=== PATIENT | male | born 1955 | race Two or more races ===

== ENCOUNTER 2024-07-07 08:37 | Outpatient (OUT) | payer MEDICARE, SELFPAY ==
[2024-07-07 08:58] LABS: Basophils Absolute Auto 0.1 10^3/uL (0.0-0.1); Basophils Percent Auto 0.8 % (0.2-2.0); Eosinophils Absolute Auto 0.4 10^3/uL (0.0-0.7); Eosinophils Percent Auto 4.9 % (0.9-7.0); Hematocrit 47.9 % (42.0-54.0); Hemoglobin 16.1 g/dL (14.0-18.0); Immature Granulocytes Abs Auto 0.01 10^3/uL (0.00-0.03); Immature Granulocytes Pct Auto 0.1 % (0.0-0.5); Lymphocytes Absolute Auto 2.2 10^3/uL (1.2-3.8); Lymphocytes Percent Auto 29.9 % (20.5-60.0); Mean Corpuscular HGB Conc 33.6 g/dL (29.9-35.2); Mean Corpuscular Hemoglobin 27.9 pg (25.9-34.0); Monocytes Absolute Auto 0.5 10^3/uL (0.3-0.8); Neutrophils Absolute Auto 4.2 10^3/uL (1.4-6.5); Neutrophils Percent Auto 57.3 % (43.0-75.0); Platelet Count 218 10^3/uL (150-450); Red Blood Count 5.77 10^6/uL (4.70-6.10); Red Cell Distribution Width 14.1 % (11.0-15.0); White Blood Count 7.3 10^3/uL (4.0-11.0)
[2024-07-07 09:36] LABS: Alanine Aminotransferase 48 U/L (16-63); Albumin Level 3.7 g/dL (3.4-5.0); Alkaline Phosphatase 102 U/L (46-116); Anion Gap 14.6; Aspartate Amino Transferase 30 U/L (15-37); Bilirubin Total 0.8 mg/dL (0.2-1.0); Carbon Dioxide 26.2 mmol/L (21.0-32.0); Chloride 105 mmol/L (98-107); Estimated GFR (African America >60 (>=60 mL/min/1.73m^2); Estimated GFR (Non-African Ame >60 (>=60 mL/min/1.73m^2); Globulin 3.7 g/dL; Glucose 126 mg/dL (74-106); Potassium 3.8 mmol/L (3.5-5.1); Sodium 142 mmol/L (136-145); Total Protein 7.4 g/dL (6.4-8.2)
[2024-07-08 08:15] LABS: Estradiol <5.0 pg/mL (7.6-42.6)
[2024-07-08 12:12] LABS: Sex Horm Binding Glob, Serum 30.5 nmol/L (19.3-76.4)
== END 2024-07-07 08:38 | disposition home or self-care (01) ==
LOC: LAB 08:42
PROVIDERS: PCP Family Medicine
DX: N52.9 Male erectile dysfunction, unspecified (principal); N40.1 Benign prostatic hyperplasia with lower urinary tract symptoms; R39.11 Hesitancy of micturition; N39.0 Urinary tract infection, site not specified; E29.1 Testicular hypofunction; Z12.5 Encounter for screening for malignant neoplasm of prostate
CPT/HCPCS: 36415; 80053; 82670; 84270; 84402; 84403; 85025

== ENCOUNTER 2024-10-16 08:22 | Outpatient (OUT) | payer MEDICARE, SELFPAY ==
--- OUTSIDE RECORDS SUMMARY | 2024-10-16 08:34 | XMS_ITS | CCD ---
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 for Visit and Comments: Hypogonadism [185] - 4 wk follow-up with labs Normal [facility] ESTRADIOLon 03-25-2024 ESTRADIOL (PG/ML) IN SER/PLAS 31.0 pg/mL Normal 27-52 [facility] Comment on above: Result Comment: FEMALES: Normally menstruating Luteal phase 60-232 Follicular phase 31-90 Midcycle phase 60-533 Postmenopausal (untreated) <138 Fulvestrant treatment will show an increased estradiol concentration with this methodology. Alternate methodologies are available upon request. Test Performed by [facility] [address] [place] [address] [id number] - Released 03/25/2024 15:10 Performed By: #### L [id number] ####[employer] [id number] [place] [address] LUTEINIZING HORMONEon 2023 LUTROPIN (MIU/ML) IN SER/PLAS 2.8 mIU/mL Normal 2-12 [facility] Comment on above: Result Comment: LH N ormal Ranges for females Normally menstruating females: Follicular phase 1-18 mIU/ml Mid-Cycle peak 24-105 mIU/ml Luteal phase 0.5-20 mIU/ml Postmenopausal females 15-62 mIU/ml LH Normal Ranges for Males 2-12 mIU/ml Performed By: #### L [id number] ####[facility] (BEAKER)[address] [place] [address] Labon 03-25-2024 Lab [id number] Mahesh Gonzalez 1955 M Date Provider Department Center 03/25/2024 2245-[facility] OPD LAB RESOURCE [facility] OPD SD Medical C No family history on file Normal [facility] Office Visiton 03-25-2024 Follow-up visit [id number] Mahesh Gonzalez 1955 M Date Provider Department Center 03/25/2024 [address] [facility] URO Second Fl No family history on file Level of Service:41270 SC OFFICE/OUTPATIENT NEW MODERATE MDM 45 MINUTES Reason for Visit and Comments: Benign Prostatic Hypertrophy [[id number]] Erectile Dysfunction [096050] Normal [facility] PROLACTINon 03-25-2024 PROLACTIN (NG/ML) IN SER/PLAS 4.46 ng/mL Normal 1.61-18.77 [facility] Comment on above: Performed By: #### L [id number] #### [facility] (BEAKER) [address] [place] [address] PSA, SCREENINGon 03-25-2024 PROSTATE SPECIFIC AG (NG/ML) IN SER/PLAS 0.2 ng/mL Low 0.4-4 [facility] Comment on above: Performed By: #### L [id number] #### [facility] ([facility]) [address] [place] [address] TESTOSTERONE, FREE AND TOTAL , AND SHBGon 03-25-2024 SEX HORMONE BINDING GLOBULIN (NMOL/L) IN SER/PLAS 28 nmol/L Normal 19-76 [facility] Comment on above: Performed By: #### L [id number] ####[facility] [employer] [id number] [place] [address] TESTOSTERONE (NG/DL) IN SER/PLAS 269 ng/dL Normal 193-740 [facility] Comment on above: Performed By: #### L [id number] ####[facility] [employer] [id number] [place] [address] TESTOSTERONE FREE (NG/ML) IN SER/PLAS 57.5 pg/mL Normal 47.0-244.0 [facility] Comment on above: Result Comment: The concentration of free testosterone is derived from a mathematical expression based on the constant for the binding of testosterone to albumin and/or sex hormone binding globulin. Test Performed by [facility] [address] [place] [id number] - Released 03/25/2024 15:19 Performed By: #### L [id number] ####[employer] [id number] [place] [address] TSHon 03-25-2024 THYROTROPIN (MIU/L) IN SER/PLAS BY DETECTION LIMIT <= 0.05 MIU/L 2.30 mIU/L Normal 0.34-5.60 [facility] Comment on above: Performed By: #### L [id number] #### [facility] ([facility]) [address] [place] [address] Complete Blood Count with Au to Diffon 09-06-2021 Basophils (Bld) [#/Vol] 0.05 10*3/uL Normal 0.00-0.20 [facility] Special[facility] Comment on above: Performed By: #### C PABLO KIDDD, CBCAD #### [facility] [address] [place], [place] [id number] Basophils/100 WBC (Bld) 0.8 % Normal [facility] Comment on above: Performed By: #### C MP LIPD, CBCAD #### [facility] [address] [place], [place] [id number] Eosinophils (Bld) [#/Vol] 0.30 10*3/uL Normal 0.02-0.50 [facility] Comment on above: Performed By: #### C DEBBIE KIDD, CBCAD #### [facility] [address] [place], [place] [id number] Eosinophils/100 WBC (Bld) 4.7 % Normal [facility] Comment on above: Performed By: #### C DEBBIE KIDD, CBCAD #### [facility] [address] [place], [place] [id number] Erythrocyte distribution width (RBC) [Ratio] 13.2 % Normal 11.0-15.0 [facility] Comment on above: Performed By: #### C DEBBIE KIDD, CBCAD #### [facility] [address] [place], [place] [id number] Hematocrit (Bld) [Volume fraction] 46.7 % Normal 38.5-50.0 [facility] Comment on above: Performed By: #### C PABLO KIDDD, CBCAD #### [facility] [address] [place], [place] [id number] Hemoglobin (Bld) [Mass/Vol] 15.7 g/dL Normal 13.0-17.1 [facility]erson[facility] Comment on above: Performed By: #### C BERNABE LIPD, CBCAD #### [facility] [address] [place], [place] [id number] Lymphocytes (Bld) [#/Vol] 1.6 10*3/uL Normal 0.9-3.9 [facility] Impersonator Comment on above: Performed By: #### C BERNABE LIPD, CBCAD #### [facility] [address] [facility] [place] [id number] Lymphocytes/100 WBC (Bld) 25.7 % Normal [facility] Comment on above: Performed By: #### C MP, LIPD, CBCAD #### [facility] [address] [facility] [place] [id number] MCH (RBC) [Entitic mass] 27.7 pg Normal 27.0-33.0 [facility] Comment on above: Performed By: #### C MP, LIPD, CBCAD #### [facility] [address] [place], [place] [id number] MCHC (RBC) [Mass/Vol] 33.6 g/dL Normal 32.0-36.0 [facility] Comment on above: Performed By: #### C MP, LIPD, CBCAD #### [facility] [address] [place], [place] [id number] MCV (RBC) [Entitic vol] 82 fL Normal 80-100 [facility] Comment on above: Performed By: #### C MP, LIPD, CBCAD #### [facility] [address] [facility] [place] [id number] Monocytes (Bld) [#/Vol] 0.4 10*3/uL Normal 0.2-0.9 [facility] Comment on above: Performed By: #### C MP, LIPD, CBCAD #### [facility] [address] [facility] [place] [id number] Monocytes/100 WBC (Bld) 6.8 % Normal [facility] Comment on above: Performed By: #### C MP, LIPD, CBCAD #### [facility] [address] [facility] [place] [id number] Neutrophils (Bld) [#/Vol] 3.9 10*3/uL Normal 1.5-7.8 [facility] Comment on above: Performed By: #### C MP, LIPD, CBCAD #### [facility] [address] [facility] [place] [id number] Neutrophils/100 WBC (Bld) 61.7 % Normal [facility] Comment on above: Performed By: #### C MP, LIPD, CBCAD #### [facility] [address] [place], [place] [id number] Platelet mean volume (Bld) [Entitic vol] 8.90 fL Normal 7.50-12.50 [facility] Comment on above: Performed By: #### C MP, LIPD, CBCAD #### [facility] [address] [place], [place] [id number] Platelets (Bld) [#/Vol] 227 10*3/uL Normal 140-400 [facility] Special[facility] Comment on above: Performed By: #### C MP, LIPD, CBCAD #### [facility] [address] [place], [place] [id number] RBC (Bld) [#/Vol] 5.67 10*6/uL Normal 4.20-5.80 [facility] Male Impersonator Comment on above: Performed By: #### C MP, LIPD, CBCAD #### [facility] [address] [place], [place] [id number] RDW-SD 39.6 fL Normal 37.0-50.0 [facility] Special[facility] Comment on above: Performed By: #### C MP, LIPD, CBCAD #### [facility] [address] [place], [place] [id number] WBC (Bld) [#/Vol] 6.4 10*3/uL Normal 3.8-11.0 [facility] Male Impersonator Comment on above: Performed By: #### C MP, LIPD, CBCAD #### [facility] [address] [place], [place] [id number] Comprehensive Metabolic Pane [facility] 09-06-2021 Albumin [Mass/Vol] 4.5 g/dL Normal 3.6-5.1 [facility]erson[facility] Comment on above: Performed By: #### C MP, LIPD, CBCAD #### [facility] [address] [place], [place] [id number] Albumin/Globulin [Mass ratio] 2.0 {ratio} Normal 1.0-2.5 [facility] Imperson[facility] Comment on above: Performed By: #### C MP, LIPD, CBCAD #### [facility] [address] [place] [id number] ALP [Catalytic activity/Vol] 94 U/L Normal 40-129 [facility] Comment on above: Performed By: #### C MP, LIPD, CBCAD #### [facility] [address] [facility] [place] [id number] ALT [Catalytic activity/Vol] 53 U/L High 9-46 [facility] Comment on above: Result Comment: 07/20 Female reference range changed. Performed By: #### C MP, LIPD, CBCAD #### [facility] [address] [facility] [place] [id number] Anion gap [Moles/Vol] 17 mmol/L Normal 12-20 [facility] Comment on above: Result Comment: Effe ctive 08/25/2019 reference range changed. Performed By: #### C MP, LIPD, CBCAD #### [facility] [address] [place], [place] [id number] AST [Catalytic activity/Vol] 58 U/L High 10-40 [facility] Comment on above: Performed By: #### C MP, LIPD, CBCAD #### [facility] [address] [facility] [place] [id number] Bilirubin [Mass/Vol] 0.62 mg/dL Normal 0.30-1.20 [facility] Comment on above: Performed By: #### C MP, LIPD, CBCAD #### [facility] [address] [facility] [place] [id number] BUN/CREA 22 Ratio Normal 6-22 [facility] Comment on above: Performed By: #### C MP, LIPD, CBCAD #### [facility] [address] [facility] [place] [id number] Calcium [Mass/Vol] 9.5 mg/dL Normal 8.6-10.2 [facility] Comment on above: Performed By: #### C MP, LIPD, CBCAD #### [facility] [address] [facility] [place] [id number] Chloride [Moles/Vol] 103 mmol/L Normal 98-107 [facility] Comment on above: Performed By: #### C MP, LIPD, CBCAD #### [facility] [address] [place], [place] [id number] CO2 [Moles/Vol] 24 mmol/L Normal 20-31 [facility] Comment on above: Performed By: #### C BERNABE, LIPD, CBCAD #### [facility] [address] [place], [place] [id number] Creatinine [Mass/Vol] 0.7 mg/dL Normal 0.7-1.4 [facility] Comment on above: Performed By: #### C BERNABE, LIPD, CBCAD #### [facility] [address] [place], [place] [id number] eGFRAA 136 mL/min/1.73m2 Normal >60 [facility] Comment on above: Performed By: #### C BERNABE LIPD, CBCAD #### [facility] [address] [place], [place] [id number] eGFRNAA 112 mL/min/1.73m2 Normal >60 [facility] Comment on above: Performed By: #### C PABLO KIDDD, CBCAD #### [facility] [address] [place], [place] [id number] Globulin (S) [Mass/Vol] 2.3 g/dL Normal 1.9-3.7 [facility] Comment on above: Performed By: #### C PABLO KIDDD, CBCAD #### [facility] [address] [place], [place] [id number] Glucose [Mass/Vol] 219 mg/dL High 65-99 [facility] Comment on above: Result Comment: For FASTING Glucose --- ADA reference ranges: Normal 65-99 mg/dl Prediabetes 100-125 Diabetes >/= 126 Performed By: #### C PABLO KIDDD, CBCAD #### [facility] [address] [place], [place] [id number] Potassium [Moles/Vol] 3.9 mmol/L Normal 3.5-5.5 [facility] Comment on above: Performed By: #### C BERNABE, LIPD, CBCAD #### [facility] [address] [place], [place] [id number] Protein [Mass/Vol] 6.8 g/dL Normal 6.1-8.1 [facility] Male Impersonator Comment on above: Performed By: #### C MP, LIPD, CBCAD #### [facility] [address] [place], [place] [id number] Sodium [Moles/Vol] 140 mmol/L Normal 135-146 [facility] Male Impersonator Comment on above: Performed By: #### C MP, LIPD, CBCAD #### [facility] [address] [place], [place] [id number] Urea nitrogen [Mass/Vol] 16 mg/dL Normal 7-25 [facility] Specialist Comment on above: Performed By: #### C BERNABE, LIPD, CBCAD #### [facility] [address] [place], [place] [id number] Lipid Panelon 09-06-2021 Cholesterol [Mass/Vol] 116 mg/dL Low 125-200 [facility]: Result Comment: Low risk < 200mg/dL Borderline risk 201-239 mg/dl High risk > or equal to 240 Performed By: #### C MP, LIPD, CBCAD #### [facility] [address] [place], [place] [id number] Cholesterol in HDL [Mass/Vol] 33 mg/dL Low >40 [facility] Specialist Comment on above: Result Comment: High Cardiovascular Risk HDL <40 mg/dL Low Cardiovascular Risk HDL > or equal to 60 mg/dl Performed By: #### C MP, LIPD, CBCAD #### [facility] [address] [place], [place] [id number] Cholesterol in LDL [Mass/Vol] 32 mg/dL Normal [facility] Specialist Comment on above: Result Comment: LDL ATP III CLASSIFICATION LDL less than 100 mg/dl Optimal LDL 100-129 mg/dl Near or above optimal LDL 130-159 Borderline high LDL 160-189 High LDL greater than 189 mg/dl Very High Performed By: #### C MP, LIPD, CBCAD #### [facility] [address] [place], [place] [id number] Cholesterol in VLDL [Mass/Vol] 51 mg/dL Normal [facility] Male Impersonator Comment on above: Performed By: #### C MP, LIPD, CBCAD #### [facility] [address] [place], [place] [id number] Cholesterol.total/Chol esterol in HDL [Mass ratio] 4 {ratio} Normal [facility] Comment on above: Performed By: #### C DEBBIE KIDD, CBCAD #### [facility] [address] [place], [place] [id number] Triglyceride [Mass/Vol] 253 mg/dL High 30-150 [facility] Specialist Comment on above: Result Comment: TRIG ATPIII CLASSIFICATIONS TRIG less than 150 mg/dl Normal TRIG 150-199 mg/dl Borderline High TRIG 200-500 mg/dl High TRIG greather than 500 mg/dl Very High Performed By: #### C DEBBIE KIDD, CBCAD #### [facility] [address] [place], [place] [id number] Microalbumin (with Creat)on 09-06-2021 mALB 4.7 mg/dL Normal [facility] Comment on above: Result Comment: mALB reference range not established. Performed By: #### m ALBC #### [facility] [address] [place], [place] [id number] mALB/Creat Ratio 19.0 MCG/MG Normal [facility] Comment on above: Result Comment: The ADA (Diabetes Care 26:S94-S98, 2003) defines abnormalities in Albumin excretion as follows: Category Result (MCG/MG Creatinine) Normal <30 Microalbuminuria 30-299 Clinical Albuminuria > or = 300 Performed By: #### m ALBC #### [facility] [address] [place], [place] [id number] UCREA 248 mg/dL Normal 39-259 [facility] Specialist Comment on above: Performed By: #### m ALBC #### [facility] [address] [place], [place] [id number] Prostatic Specific Antigen, Totalon 09-06-2021 PSA, TOTAL 0.28 ng/mL Normal < OR = 4.00 [facility] Special[facility] Comment on above: Order Comment: [facility] Testing performed at: QPT, [facility], [address], [address] [facility], [place], [address], Explosive Man: Pierre Smith MD [facility] Collection Date/Time: [id number] [facility] Results Received Date/Time: [id number] [facility] Reported Date/Time: [id number] Result Comment: The total PSA value from this assay system is standardized against the WHO standard. The test result will be approximately 20% lower when compared to the equimolar-standardized total PSA (Zandra Hunter). Comparison of serial PSA results should be interpreted with this fact in mind. This test was performed using the Siemens chemiluminescent method. Values obtained from different assay methods cannot be used interchangeably. PSA levels, regardless of value, should not be interpreted as absolute evidence of the presence or absence of disease. Performed By: #### P SA #### [facility] Default [address] [place] [address] Consent Formson 02-11-2021 Consent Forms [id number] #1.00[facility] Provider Orderson 02-10-2021 Provider Orders [id number] #1.00[facility] Provider Orders [id number] #1.00[facility] Coding Summaryon 02-09-2021 Coding Summary HTMLBase 64 FazxrdtpWGv0aAa+PGhl YWQ+MC7VUMBkJ92hwMEe zU9CU1iTPR8KNNZETEEJ VM0ECZ5jvTZ2JTeeB6Fl biAv GvnipSTwSM77YJa2OPN6 tTjoULnruN3feTGwS9l3 SqLcHI85yV05PEunCGIj LpK8VrJgiyinsDQe K2qrLzKjzLVlXpo+PHRh YmxlIHdpZHRoPScxMDAl QbCweDcyUX8oBq3dIQLw LWNvbGxhcHNlOiBj t8leWUFaFAwlNB1aaOkk G4WyhQF7WAYry8t7Qn67 dHI+BQKxCLL2qVgmJAak b972KaOny8plCSL5 sIQdLSleEIX5N25nx7X9 XYCzBVXaPGB1tVY1vW3b zNjhhjbjW9FfcALsXuB5 EDU6lSDiuC1gjJob nslzqF6qTjl+A89QJL4D DFTGPX1TYiy4J3XrPctx dHI+YA31ETEvPO63jAJy zCYym5cdeFc7LdMd BPDeSKG9iQqiFQptb0Fv NRByT03kwHXhx3I1EPQn uBtorJTrStVmbAJ2lR9a VCmysszxv9bigvnx Srzdi6dnbx80wO19Y49z GRwkMTFnWKY4VMLuDHOd bTipdl6nxC1vMx4+IDxj v7myz3mqtPz7JsJf NQCvkwWpdKgjQKK6g8Jr Rw65O3DaxTrev4KiZcz4 vj71tJXsl7E7qGV6FYnv NVVicJ1gQFefVdS7 QEJvJfQmsZ26oFWqLScn Uq5hdOgzqYpxHU6zLJUq mkafHGYwyW8gKCYfqEFf iOmuWB7eJPIppnno f347RbPgZMJ3NCXbjSMn X5DurO0mFgMzWNNoXMDf V5OwwKPeNTguO030XYve EiJ6RXEnymNeT0Cm UHArkUvhAzU2j5R2Cw8P z9FqhlzeGOR2VHyuJIX4 XtHyMnNzUvF7U7UwNvf9 ADUrrAinRT1dO4Os OAIkjufshsowlPM4XNRm TSZbpO29eOJpMZdlZz0z r7C4z663FENiCZOuxW58 Ez6woBofRGKmyKCB sX2hqljnj8flvzbkAnXm GYNpPWc4PDr6EREfcPim JbGfZBY5OsK7VZJ9fLRv kW4tiYuyfdgciJ3t Oyc+I74tyY0lLNI7CKQ3 rqbsXDExdbXbXI89AR19 B7KsEgnqkOUpiCX+PGRp hcWgqWtgJR3sEiFp z4eqq2PiASwnH0FbUFNt UEllXdd6BMAvQPW8pYA4 dC1mYWIpSIwxt9R4bZI6 G6RykhWqey5aa4oj HTFsPVwaI68ssJFhb9N4 WZLphYN4DCXxcMtpLjVz pI76Dps+DWIfiLwfc9Jy Rejow3kop6ojdUa4 IjMwJSIgdmFsaWduPSJ0 c0NqCa86K26zHUikKNIc IRIeOHZgIRBfnWrelc3w jC5fRc5+PGNvbCB3 iNT0sN3kQVXpXcB4MJrb N730BiVahVRtGnyoh6cp u7byaLu9NfFsKJGeeePx gRvqLVG2u4CrTj69 B33sHPewFHYmOWNnXAYc MORwaBmmel1hzD9uHd9+ MG2oi0seee60kZ83mDW+ FCEoITI1cRktBRom SLKpdG0oQYeqBgY6VWUe EnScgN03jGTaWMmgXn4z jEkpeSqvBC1aNFKnmkcu f518DzZxv1giKGEy oIHsHYvnTEA7N54ln6E7 WFInMGAmVGW0xWO0xR0v bGlnbjogbGVmdDsgdmVy aOlwARmhGZeiB908 IHRvcDsnPlBhdGllbnQg MjRhNAo6D6GoHrf4YXTd aWfpKC0gnJTgYFoeBr4x kFmrcUxiZF2aXCEh lttpi078UaJpq2agMCGw pCQhZNjrYDD9J13qb5M6 QSZuNRNtLBT9pZY4sV9j bGlnbjogbGVmdDsg wnObaOigWLmvXVxtW486 IHRvcDsnPkJpcnRoIERh iIW2ND78OS76oEVsh8H4 uTI8A3TsUBGuifbg xhploFX2NLXdNXGbtX14 Ct8uwHqcNm2pAPYiQGM8 QUGqqDGvF7XqiD4tSxXx UYJpFFHgE2KngGJi HZxyK201BGjoWeY7SLTr tiXhU6HxWNKvqCdpAfC7 g3N3Xg3BD9R5TR93WW30 dDDzf7X7gXO3G9Ai FLVlnruoolrgwER8VLWn UDZtpW06Zk7zfMkkEw6u VWFuHJR5IFYqcKYsL4If pP4sYuQtYATkNRNt A8HqxJXgKQnyU320MDlx LuQ1LOSreaDoT9VfYLPd yYteZjQ6i8L1Do2YVCc2 QX37IZ68mYGft4P6 qUM0D5NiUJQovxhemyxe iTP0WWYxYOYqsN52Jd8y eOcbJf6cGDZpFXP8WZTy gCVsX0WskV7cXoHm GYHjTCDfW1CgyDKlKKkb I225BRucSvL8ZDEzgeKe D2MkUOPyqEjyZeN4g3Z0 Tb9VDQCkEE82DPJ3 uEO4IA51UX56D1GvCfnj dGFibGU+PHRhYmxlIHdp ZHRoPScxMDAlJyBzdHls TU1kKr4yXIFjWIMu zKnbcNVnTzFwn8ikRBOp MGznHR8whClmY2ItrPZ1 CCMky6h7Kw85A79sU0Uj dXA+HHHviGB3vEL1 mR6bAxYfDtZ7WLqbD382 QdHuaETkLpnwv6zlq4vw hCe6OzT0SVRlvjHpgFxu LHS2j8WlRv27I76i IHdpZHRoPSIxNSUiIHZh bZvixg5vqS7wKz5+PGNv uBI7mJW0cK6cLzYwVqE0 PGhhQ848ImMdfAIa Xxbzx7wck9ljpEa7EtNy SZHomhLzcCmlAOY7h8Zz Me70O8VuzOyep2QnSey5 fj43ePXba9H6aXH0 W7UuQFZrkwrjlJXviScb XF5eMOEisbzpKMWwxP2f VHQiR0x1ChEgQmE9BYxs R2ZpdwD7XGPzzDMv JCioAEJ9V24ev6U8ZQJv VUNtPIH6wYT0xS3qaOjc bjogbGVmdDsgdmVydGlj LLoiLVmjP323FTEf tUpaDRNxgJ7tXFOsuVPu wIleYH9xSRYobaniJlVF Q7SVIqpeQxMKYfETLXlA RpCGAXWIGGI9M5Du Ckn6GNKycOecKF1lpHUy YRdmQd5tuGbfsFxkRS4f BRYvdgysSYQyqX4fOGZd fJQdrKzwOQ7bJCUb fhirh958GgDdMMN3PFUx oIGpF8MwzG0hEuNdHKLp ZLLrJ1ZssBOpKXqqP018 YVsyQlF2DVCvyjJt N7FrPMHzgDqwYuG1l7H7 Ce7rRU7hJx6wPMD5IU24 SJ24bLUqd0L1eZC0Y2Gq ZGRpbmctcmlnaHQ6 XXImPVFwlO38uDOnAJaf Fs4zq7G4o622RGYmGERc hX55Al6voLroKQVybUBJ pY6qcarny6kxnpge BkCkWOFdPOp2OEw2PQTj tNwfSpDpJFU9UoU6FFL8 bVYodR5wtMryaukixH2x Oyc+NjMgWWVhcnM8 U7TbVql3QJLwyQihOF1n iDFzLWmqGv8xiSgluSzo DC3lSDWclyehKQJczP8c BMGsuKLoeJzlPC3g QYBwhuyjd088CwJlUPE4 WNFlzRArQ7WuaH7lSvPr FGBmZMCeG3SbdKDwNLca E758JRssDaR4RZLd zdGmB0IeYEQioGwrZjB6 g4C9Cy7SLHbKKP31IR15 yHImb3V7nLC6F3RdEFXz wasdzkhfjQZ0TYIg NAVzoV54jCEbHRznQd8j z0S9s730DFXnWKBhjP05 Rm6krOztJIRjuPHIdX5h omsrq6dpdjocDxCy JQLbUEs9FVn5OYCmkPmt VwHcOSB5YmV2AFY6jNOy tE3cbCpckvbisL0kVzm+ MBL0KMK3xqaeetl4 F5GxMotfdMK+SQ92FLAf VN58bRYkyXBey0yjbJm9 HpLhQCGuQHF0bWzfXBdf i2WdQPTnU83xpZLj u0O9INUxgBaidIXkUmUh hJC5rU3zCYfeozagp2gj wejqZxcfl1swto19cN36 E97oEJcwRETdQGJo RGPrTXRqlAwdbw3ebB4q Ii8+BXIxkQV2iWD5sV6a UdSdJpT1GXjfH616StUg oQFaDlmmk9ier4pw fBo3JhJrPJZlzyJnhVbs JXE4l2OeSz12A17cOFpw ZHRoPSIyMCUiIHZhbGln gw5oyZ3uOh9+PC9j e6mdml05iH69jAF+PHRk GHM8dWsrYLdjOAQuwG8u GJzxLdJ4OCRbFxLgzT46 lIRxEBziAv9xzEjc kUwqTZ2bCPQdxelah025 ZtMgt7loNAKhlXHmIZag HOK3A97at7S7UJYdNYKy FDZ1yRG8hF4zwPuo bjogbGVmdDsgdmVydGlj BIlqTElmG892KTWkgIws PdStpZNqA8pyhfEAWE4j OjwvdGQ+PHRkIHN0 eQsdZAzuNHQvgK0yTFMg M2i2ZgXhNfR9VHbzP7Lh mhF6UUBudFNgCCZjvDCS lN6xdobev1asewgo GpWbQYGdMJu8EIq4FKMu wOaaLiZbLMU7PoE3UXD5 bTXmaL3urCfwaknevW1e Oyc+RklOOjwvdGQ+ CSVaBLX3tWfePAchZWYb dF9pCOUhY5t7CqWtPtN4 KEmwE6MnilE7JQWnpYQc ANCevQLEmJ9qnyrj r7vgvjkaTvPrFTUtBBz4 WJa9BFBcrIfpCtMuJNO3 DpG9SGO0kGSfwS3bfHmm doxgsM6dSkv+TVJO OjwvdGQ+ZQThJPK7lEas ICrjZDBmvK4oGEMoT1y8 DkYuVeX4QDvzP0YskjQ6 IGJvbGQgMTBwdCBU aB5oxmfjy1thwitsDnUg SYFwIEs2GQm7YEBhuJuj PsXjZSL3StJ6JNK1pQIa nQ0dfXjtwuofqT4y Oyc+CEQ1XNC9YK66MN39 L2UpMvqpyFAqbXQ+PHRh YmxlIHdpZHRoPScxMDAl RwWspAsnCP1cHm6m ZGV (more content not included)... [facility] Consent Formson 02-09-2021 Consent Forms [id number] [id number] [facility] Anesthesia Noteon 02-08-2021 Anesthesia Note Patient: MAHESH GONZALEZ Age: 65 years Sex: MALE : 1955 Associated Diagnoses: None Author: Rene Eden DO Postoperative Information Post Operative Note: Post Anesthesia Care Unit. Physical Examination VS/Measurements VSS. See nursing flowsheet for vital sign measurements. General: No acute distress. Respiratory: Respirations are non-labored. Cardiovascular: Stable hemodynamics.. Neurologic: Alert, Oriented. Review / Management Condition: Stable. Assessment Anesthetic outcome No anesthetic complications noted. Adequate pain relief. Patient either has a diagnosis of or is at risk of TRUDY. Potential risks and mitigating factors were discussed with the patient who expresses understanding.. No Complaint of nausea and vomiting. Plan Transfer/ Discharge: Patient can be discharged from PACU when criteria met. Condition stable. [Electronically Signed on: 02/08/2021 08:21 EDT] Rene Eden DO [Verified on: 02/08/2021 08:21 EDT] Rene Eden DO [facility] Anesthesia Note Patient: MAHESH GONZALEZ Age: 65 years Sex: MALE : 1955 Associated Diagnoses: None Author: Rene Eden DO Preoperative Information Anesthesiologist scheduled: Rene Eden DO Anesthesia history: Patient history: No prior anesthesia problems. Family history: No prior anesthesia problems. Re-evaluation prior to induction: Completed. Review of Systems Constitutional: No fever, No chills. Respiratory: No shortness of breath. Cardiovascular: No chest pain. Gastrointestinal: No heartburn. Neurologic: Alert and oriented X4. ROS reviewed as documented in chart Health Status Allergies: Allergic Reactions (All) No Known Medication Allergies Current medications: (Selected) Inpatient Medications Ordered LR 1,000 mL: 20 mL/hr, IV Lidocaine 1% injectable solution: 0.1 mL, ID, Once, PRN: Other (see comment) ceFAZolin: 2 gm = 50 mL, 100 mL/hr, IV Piggyback, Treasury Consultant Documented Medications Documented Jardiance 25 mg oral tablet: PO, Daily, 0 Refill(s) Rybelsus 7 mg oral tablet: 7 mg = 1 tab(s), PO, Daily, 0 Refill(s) amLODIPine 5 mg oral tablet: 5 mg = 1 tab(s), PO, Daily, 30 tab(s), 0 Refill(s) finasteride 5 mg oral tablet: 5 mg = 1 tab(s), PO, Daily, 30 tab(s), 0 Refill(s) glipiZIDE 10 mg oral tablet: 10 mg = 1 tab(s), PO, BID, 30 tab(s), 0 Refill(s) hydroCHLOROthiazide 25 mg oral tablet: 25 mg = 1 tab(s), PO, Daily, 30 tab(s), 0 Refill(s) irbesartan 150 mg oral tablet: 150 mg = 1 tab(s), PO, Daily, 30 tab(s), 0 Refill(s) simvastatin 40 mg oral tablet: 40 mg = 1 tab(s), PO, Once a day (at bedtime), 30 tab(s), 0 Refill(s) tamsulosin 0.4 mg oral capsule: 0.4 mg = 1 cap(s), PO, Daily, 30 cap(s), 0 Refill(s) Problem list (past medical history): All Problems Diabetes mellitus / SNOMED CT 860796549 / Confirmed Hypertension / SNOMED CT 4482139806 / Confirmed, Active Problems (2) Diabetes mellitus Hypertension Histories Family History: No family history items have been selected or recorded. Procedure history: Cholecystectomy (36145040). Social History Electronic Cigarette/Vaping Assessment Electronic Cigarette Use: Never. Alcohol Assessment Use: Past. Tobacco Assessment Former smoker, quit more than 30 days ago Tobacco Use:. Comment: quit 10 years ago Substance Abuse Assessment Substance use: Never. . Social & Psychosocial Habits Alcohol 01/21/2021 Alcohol Use: Past Substance Abuse 01/21/2021 Substance use: Never Tobacco 01/21/2021 Smoking tobacco use: Former smoker, quit more Comment: quit 10 years ago - 01/21/2021 13:24 - Mignon Nunez RN Electronic Cigarette/Vaping 01/21/2021 Electronic Cigarette Use: Never . Physical Examination Respiratory: Lungs are clear to auscultation. Cardiovascular: Normal rate, Regular rhythm. Gastrointestinal: Soft, Non-tender. Neurologic: Alert, Oriented, No focal deficits. Review / Management Results review ECG interpretation Plan [place] [employer]#(A SA) physical status classification: Class III. Anesthetic Preoperative Plan Anesthesia: Monitored anesthesia care. Anesthetic plan, risks, benefits, and alternatives discussed with the patient and/or family. Risks discussed: nausea, vomiting, headache, sore throat, dental injury, serious complications. Patient verbalized understanding. Informed consent was given. Consent was signed by the patient. Anesthetic technique: Monitored anesthesia care. [Electronically Signed on: 02/08/2021 07:10 EDT] Rene Eden DO [Verified on: 02/08/2021 07:10 EDT] Rene Eden DO Normal [facility] Inpatient Patient Summaryon 02-08-2021 [place]patient [place] [address] Patient Discharge Instructions Name: MAHESH GONZALEZ : 1955 Patient Address: [address] [place] [address] Primary Care Provider: Name: ROXY FERRERA MD After you are discharged if you find you have any questions, please, call [phone] ext [phone] to speak to a nurse. Discharge Diagnosis: BPH (benign prostatic hyperplasia) Prescription Information: If you have been given a prescription for narcotics, seek immediate medical attention if you have any difficulty breathing or any sudden status changes such as confusion and sleepiness. If you or anyone you know is experiencing suicidal thoughts, mental health, alcohol and/or drug addiction problems; contact the [facility] 12/03 Crisis Hotline -Text 4HOPE to 499846. If you received any narcotics, sedation, or any other medication that causes drowsiness for the next 24 hours, unless otherwise directed: ? Do not drive a car. ? Do not operate machinery such as power tools, lawn mowers, drills, sewing machines, or stoves ? Avoid alcoholic beverages and drugs for allergies, nerves, or sleep ? Do not make important personal or business decisions or sign any legal documents [facility] would like to thank you for allowing us to assist you with your healthcare needs. The following includes patient education materials and information regarding your injury/illness. MAHESH GONZALEZ has been given the following list of follow-up instructions, prescriptions, and patient education materials: Follow-up Instructions With: Address: When: Sunny Marie [address] [place] [address], [facility] [place] [address] Business (1) With: Address: When: MAYDAWIN FERRERA [address] [place] [id number] Business (1) Medications During the course of your visit, your medication list was updated with the most current information. The details of those changes are reflected below: New Medications Printed Prescriptions traMADol (Ultram 50 mg oral tablet) 1 tab(s) Oral every 6 hours as needed as needed for pain. Refills: 0. Medications That Were Updated - Follow Below Instructions Other Medications Updated: empagliflozin (Jardiance 25 mg oral tablet) Oral every day. Updated: glipiZIDE (glipiZIDE 10 mg oral tablet) 1 tab(s) Oral 2 times a day. Updated: semaglutide (Rybelsus 7 mg oral tablet) 1 tab(s) Oral every day. Medications to Continue That Have Not Changed Other Medications amLODIPine (amLODIPine 5 mg oral tablet) 1 tab(s) Oral every day. finasteride (finasteride 5 mg oral tablet) 1 tab(s) Oral every day. hydroCHLOROthiazide (hydroCHLOROthiazide 25 mg oral tablet) 1 tab(s) Oral every day. irbesartan (irbesartan 150 mg oral tablet) 1 tab(s) Oral every day. simvastatin (simvastatin 40 mg oral tablet) 1 tab(s) Oral once a day (at bedtime). tamsulosin (tamsulosin 0.4 mg oral capsule) 1 cap(s) Oral every day. It is important to always keep an active list of medications available so that you can share with other providers and manage your medications appropriately. As an additional courtesy, we are also providing you with your final active medications list that you can keep with you. amLODIPine (amLODIPine 5 mg oral tablet) 1 tab(s) Oral every day. empagliflozin (Jardiance 25 mg oral tablet) Oral every day. finasteride (finasteride 5 mg oral tablet) 1 tab(s) Oral every day. glipiZIDE (glipiZIDE 10 mg oral tablet) 1 tab(s) Oral 2 times a day. hydroCHLOROthiazide (hydroCHLOROthiazide 25 mg oral tablet) 1 tab(s) Oral every day. irbesartan (irbesartan 150 mg oral tablet) 1 tab(s) Oral every day. semaglutide (Rybelsus 7 mg oral tablet) 1 tab(s) Oral every day. simvastatin (simvastatin 40 mg oral tablet) 1 tab(s) Oral once a day (at bedtime). tamsulosin (tamsulosin 0.4 mg oral capsule) 1 cap(s) Oral every day. traMADol (Ultram 50 mg oral tablet) 1 tab(s) Oral every 6 hours as needed as needed for pain. Refills: 0. Take only the medications listed above. Contact your doctor prior to taking any medications not on this list. Diet & Activity Patient Activity Level: As Tolerated Patient Diet: Regular Patient Activity Restrictions: Comment: Patient education materials, if any, will display below Viruses or Bacteria What?s got you sick? Antibiotics only treat bacterial infections. Viral illnesses cannot be treated with antibiotics. When an antibiotic is not prescribed, ask your healthcare professional for tips on how to relieve symptoms and feel better. Usual Cause Illness Viruses Bacteria Antibiotic Needed Cold/Runny Nose NO Bronchitis/Chest Cold (in otherwise healthy children and adults) NO Whooping Cough Yes Flu NO Strep Throat Yes Sore Throat (except strep) NO Fluid in the middle ear (otitis media with effusion) NO Uri (more content not included)... [facility] Intraoperative Record MAGR Intra-Op Record Summary Primary Physician: Sunny Marie MD Finalized Date/Time: 02/08/21 08:56:26 Pt. Name: MAHESH GONZALEZ /Sex: 1955 MALE Med Rec #: [id number] Physician: Sunny Marie MD Financial #: [id number] Pt. Type: D Room/Bed: / Admit/Disch: 02/08/21 06:03:15 - Institution: Case Times MAGR Entry 1 Patient In Room Time 02/08/21 07:30:00 Out Room Time 02/08/21 07:59:00 Anesthesia Start Time 02/08/21 07:32:00 Stop Time 02/08/21 08:03:00 Surgery Start Time 02/08/21 07:42:00 Stop Time 02/08/21 07:52:00 Last Modified By: Melba Smith RN 02/08/21 08:32:58 Case Attendance MAGR Entry 1 Entry 2 Entry 3 Case Attendee Sunny Marie MD, Christopher J DO Long, Barbara RN Role Performed Surgeon - Primary Anesthesiologist of Senior Marketing Engineer Record Time In 02/08/21 07:30:00 02/08/21 07:30:00 02/08/21 07:30:00 Time Out 02/08/21 07:59:00 02/08/21 07:59:00 02/08/21 07:59:00 Procedure UROLIFT - SN UROLIFT - SN UROLIFT - SN Last Modified By: Melba Smith RN, Barbara RN Long, Barbara RN 02/08/21 08:04:23 02/08/21 08:04:23 02/08/21 08:04:23 Entry 4 Entry 5 Case Attendee Flor Santos Brittany E CSFA Regina TOBACCO CLASSER Role Performed Scrub Personnel Manager Erp Time In 02/08/21 07:30:00 02/08/21 07:30:00 Time Out 02/08/21 07:59:00 02/08/21 07:59:00 Procedure UROLIFT - SN UROLIFT - SN Last Modified By: Melba Smith RN, Barbara RN 02/08/21 08:04:23 02/08/21 08:04:23 Surgical Procedures MAGR Pre-Care Text: A.20 Verifies operative procedure, surgical site, and laterality Im.150 Develops individualized plan of care Entry 1 Procedure UROLIFT - SN Primary Procedure Yes Primary Surgeon Sunny Marie MD Surgeon Comment UROLIFT Start 02/08/21 07:42:00 Stop 02/08/21 07:52:00 Anesthesia Type MAC Surgical Service Urology Wound Class Clean-Contaminated Technique Details Closure Technique N/A Entire procedure No was performed via laparoscope or robotic assistance Last Modified By: Melba Smith RN 02/08/21 07:56:15 Post-Care Text: O.730 The patient's care is consistent with the individualized perioperative plan of care General Case Data MAGR Pre-Care Text: A.350.1 Classifies surgical wound Entry 1 Case Information OR MAGR OR 01 Case Level Level 3 Wound Class Clean-Contaminated Specialty Urology ASA Class 3 Diagnosis Preop Diagnosis BPH Postop Same As Preop Yes Postop Diagnosis BPH Blunt or No Is the procedure No penetrating injury considered occured prior to Emergent/Urgent? the start of the procedure: Last Modified By: Melba Smith RN 02/08/21 07:47:11 Post-Care Text: O.760 Patient receives consistent and comparable care regardless of the setting Time Out MAGR Entry 1 Time out date/time 02/08/21 07:39:00 All team members Yes have introduced themselves by name and role Surgeon, Yes Surgeon reviews Yes anesthesia, nurse critical or confirm patient, unexpected steps, site, procedure operative duration, anticipated blood loss Anesthesia team Yes Nursing team Yes reviews any reviews sterility patient-specific (including concerns indicator results) and equipment issues/concerns Antibiotic Antibiotic Yes Administration Time 07:28 prophylaxis given within the last 60 minutes Last Modified By: Melba Smith RN 02/08/21 07:48:09 Patient Positioning MAGR Pre-Care Text: A.280 Identifies baseline musculoskeletal status Im.40 Positions the patient Im.80 Applies safety devices Entry 1 Procedure UROLIFT - SN Body Position Low Lithotomy Left Arm Position Extended on padded arm Right Arm Position Extended on padded arm board board Left Leg Position Secured in Stirrup Right Leg Position Secured in Stirrup Press Points Checked Yes Positioning Device Safety Strap, Stirrups Outcome Met (O.80) Yes Last Modified By: Melba Smith RN 02/08/21 07:48:19 Post-Care Text: E.290 Evaluates musculoskeletal status O.80 Patient is free from signs and symptoms of injury related to positioning Skin Prep MAGR Pre-Care Text: A.30 Verifies allergies Im.270 Performs skin preparation Im.270.1 Implements protective measures to prevent skin and tissue injury due to chemical sources Entry 1 Skin Prep Syntegrity Prep Agents (Im.270) Other Prep By Melba Smith RN Prep Area (Im.270) Perineum Skin Prep Agent Dry Yes Without Pooling Hair Removal Syntegrity Hair Removal Methods No hair removal performed Outcome Met (O.100) Yes Last Modified By: Melba Smith RN 02/08/21 07:48:39 Post-Care Text: E.10 Evaluates for signs and symptoms of physical injury to skin and tissue O.100 Patient is free from signs and symptoms of chemical injury General Comments: hibiclens prep Implant Log MAGR Pre-Care Text: A.20 Verifies operative procedure, surgical site, and laterality Im.350 Records implants inserted during the operative or invasi (more content not included)... [facility] Summary Primary Physician: Sunny Marie MD Finalized Date/Time: 02/08/21 08:55:55 Pt. Name: MAHESH GONZALEZ /Sex: 1955 MALE Med Rec #: [id number] Physician: Sunny Marie MD Financial #: [id number] Pt. Type: D Room/Bed: / Admit/Disch: 02/08/21 06:03:15 - Institution: Phase II Case Times MAGR Pre-Care Text: Patient is free from s/s of injury. Patient remains free from compromised physical state related to surgery or anesthesia. Patient comfort maintained. Patient/family verbalize understanding of discharge instructions. Entry 1 In PACU II 02/08/21 08:02:00 Discharge from PACU 02/08/21 09:00:00 II Last Modified By: Tanisha Trevizo RN 02/08/21 08:55:49 Post-Care Text: The patient remains free from s/s of injury. Patient's vital signs stable, circulation maintained, return to preop mental and physical status, opsite/dressing intact, minimal or absent nausea and vomiting, tolerates po intake. Patient verbalizes adequate pain control. Patient/family express understanding of discharge instructions. Finalized By: Tanisha Trevizo RN Document Signatures Signed By: Tanisha Trevizo RN 02/08/21 08:[address] [facility] MAGR Preoperative Recordon 0 02-08-2021 MAGR Preoperative Record MAGR Pre-Op Record Summary Primary Physician: Sunny Marie MD Finalized Date/Time: 02/08/21 07:45:19 Pt. Name: MAHESH GONZALEZ /Sex: 1955 MALE Med Rec #: [id number] Physician: Sunny Marie MD Financial #: [id number] Pt. Type: D Room/Bed: / Admit/Disch: 02/08/21 06:03:15 - Institution: Pre-Op Case Times MAGR Pre-Care Text: Patient will be optimally prepared for surgery. Patient is free from s/s of injury. Provide information to patient/family related to plan of care. Verify patient allergies. Confirm identity and verify consent before the operative or invasive procedure. Entry 1 Patient Arrival Time 02/08/21 06:12:00 Preop Departure 02/08/21 07:28:00 Last Modified By: Melba Smith RN 02/08/21 07:45:15 Post-Care Text: Patient is prepared mentally and physically and is ready for surgery. The patient remains free from s/s of injury. Patient/family express understanding of plan of care and participate in decisions affecting his or her perioperrative plan of care. Allergies documented appropriately. Patient identifiers and consent correct. General Comments: Pt arrives to w ambulatory. PT denies pain,cp, sob, cough or flu like symptoms. Pt denies pacamaker/defibillat or or sleep apnea. Finalized By: Melba Smith RN Document Signatures Signed By: Melba Smith RN 02/08/21 07:[address] [facility] POCT Glucose Levelon 021 Glucose [Mass/Vol] 131 mg/dL High 74-118 [facility] Comment on above: Performed By: #### [id number] ####[facility] (DEFAULT)[address] [place] [address] Patient Handouton 02-08-2021 Patient Handout [facility] Coding Summaryon 02-07-2021 Coding Summary HTMLBase 64 AjofhmxcWLc6sPg+PGhl YWQ+CX7HLHKaQ98xnTNe wH9IG2wRZP3DLGCBCFEA SH7IAO8fiYM5MDbnB1Nb biAv DkqcyKGfEH25DHp9PKI8 hFabHUqsjG2jfJYsK9z6 XeBkLU50sM17FEkxRASp SgC2HlEpqonsiPBd U4sxAnRkmMMeFlb+PHRh YmxlIHdpZHRoPScxMDAl LyFiuGdrTX7kVx9cAPMf LWNvbGxhcHNlOiBj o0gjHFWtVIcgQO5onNak W1XfqNZ6VAMqf5x5Ga41 dHI+CUNlYSG9iXhjLQze b271IkSkv9weZDY3 rKMxSFkaIGC1R57hw6F0 EVWrDBWcARU1hVO0sM0j oEtvveqvD0QhfKFgRfD5 LJN9mYHrfJ4lpWyp eqrtdZ5aSte+Q51ILN3U KOQVSY9OXvp6F2BlFmwl dHI+KH03OKEsGV02uBBh yCJrx1gehGq6EvJi XSQiJFP0oVjqNDfgr6Wr CIViB92uxXJdl4I8BMLb iCgkcNRwOuBmjZO9xE8w EFjgooioy0olfirl Swzqy8jtlj50vM90H67o JWwhBVCvSEA3JINqOQAh jExvyk9ezM4hFr8+IDxj t4cic3kscUy4WaZd ZFZfhjQoaZzwKYU7f3Vy Oi53J0HyqMttc2LzXwb7 tl27rRVol0Z9pLB8YOub KFDecN5kZRgyDjD5 CGLfCjWplT48tHIgBCfk Tu1egFqbwAwoSB9mCUUh zvzvQLGviG3wVPHohVHn nAbwGA9xXEGdzyur y096LhXvMTZ9QKGsdSNv J0SuiN0sNhOrYHKaEJWx I1KpzCTpEYluG589DKqy QaJ6ADQjxqSzK0Io KXRuwGnjNxH3v3O5Ex8U s1VtcyikFLJ9SGifQSY6 WmLeLsTyJwH0B0PlRxi8 DXSrnMoiYJ3pV6Qr JNAdnriatacagCI0RUPr RFNbmF68nEKpCDxvEv7z i0T4f851CFWjGJGswN65 Gs1piJxfKPCcjTVD lZ5ujharo3bfnxyfExQp OTYzTMy2MYk2TGNntHjn XjHzRYU2IaE1DPC4aVWe cI4ahWxksfoduC2r Oyc+A08ieH4nCGY4OHR0 vdaaXWIpniRfKF93CD60 U8FzNtgxeBKhbXU+PGRp jgOxdNwoGQ1cXkTp t1bpa3OrMDhlE3PmVUEz RBybCao4QMJfYTX4fUM8 oE4rPQFdKSsqr0M6zOB0 K0VwnbQtuf2fo0xi GXAgPLcdB57epJNor3K4 FUNgsFT9VXXioBjzQlGp vT76Rpj+TZUvzCbjw9Hg Jnejr9red1xhxBc0 IjMwJSIgdmFsaWduPSJ0 c0YeLt21U38oYYakLCFw KKGxCPMgBHUzeOoyxy5w cO2hSa1+PGNvbCB3 jKZ5jO9aAUQjRtJ4WCsf W642XlKqqLUyWjffy2ur c9gycNn8IdBoPGRpjsMq fLumZCE4s5HtXg10 P86sUNsaVHLkTZSqOPRr ECBrlAszfp9teI8uDx8+ GS9ej4toqn79vU97tXQ+ DTDcAWY4rXbmFUkk ANFkaK7mRVdwUzF6JYTq YnEsiO25zHRkLYurKa5c gLwarAegJQ0hTJMzbvlc v851YvMej1dsTRCl fRQzNTcmTQH5D14kl0M3 LNUiMFGeCGR4xVQ7yQ1j bGlnbjogbGVmdDsgdmVy tCzuTBhlQPffO935 IHRvcDsnPlBhdGllbnQg HgGqTKw3G7NwExx6JKAu gEvjMU7lzYViKUtbCo6t zEmouDujMR1pTFYq ifjia163YyBuw7qeFSBd fMKaGLuvVXA1L37vn9H1 YTRhIJCjWXA3iWS5pI5r bGlnbjogbGVmdDsg jpQlePawNOzeOBjlZ073 IHRvcDsnPkJpcnRoIERh fKJ4IK98DI41zCGev1P2 xKB8P0SoJTLiytfh zieneOM4UQSeVEAqkO37 Bk7oaCydQu5eNAXdLXY9 HIRwxDWyE7SxoP2aGwTn UOMpCKWaW4PvsHHe DBdlY751SPuzHfN7PLZn xvDaM9FmUZApmKabYwE9 c1Y8Fy0JD1P2HA51YS92 nHTzg3R9dFI2H6Xa SGRdlmgwiosvcDK3BZWt AEKvsS72Zy5gcLxpSf7g SZXyFIQ0MGUddZYuM2Hy iF8nDnTgQWIyIOSf D9NpvSShXTniN618SJya HzC0NUAaquAwE4RsMNHm yGyrBrG5r4P3Cg7BDAy7 NF84UL87gXZzr1G9 pLL5L0EpYHMgwoskixxi rRM3RHBjBUImgH30Sp7u hCrqWc6hUNRyFZW9UQPf zJAdP5DtmA1mSwAs BXXxVAZbA0HyaEZsQFuc K041LCckAkM6FBTwsaFw X0LfVOLilXtlEhF4w5S2 Qb3KZNWoFY03DMF2 uRM3KW31RT45V4DgGdbm dGFibGU+PHRhYmxlIHdp ZHRoPScxMDAlJyBzdHls WW3cDn1fFWNnAAKk dUbbmQWfRlLru2pgSZRa PSroKF8vuNjzW1LszWB3 KMOkn5m6Gd70C39yH9Lk dXA+QGMpkKH0sYZ3 wJ4yQfCkWwK5VKimI973 TqOviHXzZapes0orp4ie lGz1MrZ4MAObekFmiXpb NUA5x7PeDu02X07x IHdpZHRoPSIxNSUiIHZh mLjcxf4deR8rCu1+PGNv nAZ5vJO8gG6gIpJpQdO1 ACpkN876UpVonQSr Wmxrb8ium9ghjYo8FcTr DPJnboGtcNwcKON8g7On Tw28O4VuaGulg2ViEqb5 xa54jRVbf2C9nCC4 R2IvVCBspfotoAHlbQah LH8bBMFbuabsHOHgmL2k XRKmO5q4AqAyLbP9WRgs F4YiyoV3ECOgyTDd JWwxDRV3T68oj9J6PLBb POQjGFG0lCW8eO6aoLub bjogbGVmdDsgdmVydGlj GTxoPRyvQ612MNRw wCbiJXTvwW7fWOQoxIMe oJpnRR1rXBWptcnlGeKT G1ZNHstxQpBBQpEXLXlM HpRGDDEOLSM0V2Mb Usc6UTNiwEknYD7epFPw GPgkGo2ahMyvaPjgNO1d AFPjfoqcHYShwC0hWRBl dPYtvYofRX7iDUPj feimk886BhTjWDW5YKDp dUFiJ7PgtM6kEqLcRNWg AWHuT8ShlSJtWIhgP951 NYscVjT7VBIbydPx N2TlONKjrBlrFkP8f7O4 Ll2sLJ3pNd2rSWO1FR16 LM11jXPhp4W7sRW5X8Sw ZGRpbmctcmlnaHQ6 ELPxVRTexJ87zGClMFfj Zo9qf4W1s200MCRwIMLn qL49Ni2sfZocYTAyzOYO xM9hpzrsj4zthnms TjYlQJBiXJl7JBo6JUVk pUxxDgYiDFH4SoM6YRA1 tDPnsZ3wwPxqqgldmX1f Oyc+NjMgWWVhcnM8 B4YoLml6RLCvbMjkHW1r rCNxEFryQd9yhEmohZyk OC9hBPOixsdmCFPzwD6k UZXleRHvnBgiEB5t MJHwmliuo166QfWmQAF4 NYMnpBHaY4EeoQ3cLeGq VDSfBEXiU3HaoCPcPXfo A704QOkoNaV8URIl rgQmS8JtMQBcnIgcKzK3 y1X7Ki3XAKlKFH42II29 oBGzg3I0iHY3H6XbJARx elbqpckkuRS9WPJl VYIotX57jJBaXLgqQc9j c9F7u144HLDtFOHweM01 Wx1hqPbhRQBpdBKIyT8u ttgfx6jsjivgHbAk DUHlCIk9IWr2HOMssBkf DmQkHIA1NfM5KPE2wXGt tK4ysXegrsiemI3eXme+ N3R2U5RfVwtspQR+ WG52LXNcZI13aXEueXWb x1xkpTm0RhTdCMBsPYX0 sIteNXvwb6SjKWIdN92n tNImw0J6XILzoHag xUVqTgZotRM1rC7xDRvd cglex3sradwuNinme7mi hk32fB58S82gMYwhEPOs PSIzMCUiIHZhbGln kb7qkV8jFe6+PGNvbCB3 vGX3iR1qCsKiMjA0TRdr B012LmIkiBUlCgtep7bb y8dzgWd3MlNgSPEn fjKwfXivOUP6i6MfFi81 L60cKLdyRLWjKBAhRWXr LWUjqYugeb3bmW7rVe9+ GS6ql9ouys19aF56 dHI+STYgPGL7cCtmCVdr NNIfuZ9cQCsdMoJ3OOWw XaWfqW94iHXiFOibUm6e iCfmoZxoSO7xXBJj vnmsw316FtPka7neQQJs xTRwFPouMVD2B56tr1H6 INZcNOHhUWK8yMY7wQ0x bGlnbjogbGVmdDsg owBdzWraTVgaRTmjF375 TLAxwSlxOiLonACwX5mj yhNOQG7xDpdkdRH+PHRk NVC8yTcpBBumZLYu iC7tGUPiE5p4XeNbGnJ6 VKbaB2MuzgK8DWSbdEDw BQOvoONSmJ9uisgbe2wx cjogIzAwMDAwMDt0 OKq4MSDgwSpjWqLiYIF2 YwB0UUC2aODgrU4biVvw gcqshK2zZja+RklOOjwv dGQ+MVWaHZK6aOta UVouRCWnrK5vYEFgE7v6 ViYzVzG1GDzvS5EjstD4 QKOygIKxSAMpqHSDxE7g calis1epwjtwHwFf GRTtNFe7YDk4JCDjlBsm MnRcPOU4TsP4ZAS2wGPc qA8wuArqriazcB8tKed+ TVJOOjwvdGQ+PHRk RJY3fKdiRRdsJFSqcH1k BOMbM6e3FiFeCtO0IHfd P6XnskQ3JBAlbMZjGDNg lATGlV4laixfs1qn ryufTvNpRUHnCGs3DBe1 YFBmbYyoFxDkMFA0AdH6 YWB7gYXyeY6ylSmjsjuj iG8bHsg+WDS7YKV7 PZ32XA30I2BhJadhmYWg bGU+PHRhYmxlIHdpZHRo FDbjCKFeDxDbnYryVN8n Oh6iGQIiQUJwaCrx N (more content not included)... [facility] Progress Note - Nurseon - Progress Note - Nurse Patient phoned in- patient informed of arrival time of 0600 on 02-08-2021 for surgery. Patient reminded of NPO status after midnight except for any medication that he was instructed to take with sip of water. Pt informed of needing ride home form hospital. Patient with understanding. [Electronically Signed on: 02/07/2021 11:21 EDT] Viky oRberts RN [Verified on: 02/07/2021 11:21 EDT] Viky Roberts RN [facility] 2019 Novel Coronavirus (CoVI D-19), VERONA on 02-05-2021 SARS-CoV-2 (COVID-19) RNA VERONA+probe Ql (Unsp spec) Not detected Invalid Interpretation Code Not Detected [facility] Comment on above: Order Comment: [id number] [phone] Result Comment: This nucleic acid amplification test was developed and its performance characteristics determined by [employer]. Nucleic acid amplification tests include RT- PCR and TMA. This test has not been FDA cleared or approved. This test has been authorized by FDA under an Emergency Use Authorization (EUA). This test is only authorized for the duration of time the declaration that circumstances exist justifying the authorization of the emergency use of in vitro diagnostic tests for detection of SARS-CoV-2 virus and/or diagnosis of COVID-19 infection under section 564(b)(1) of the Act, 21 U.S.C. 360bbb-3(b) (1), unless the authorization is terminated or revoked sooner. When diagnostic testing is negative, the possibility of a false negative result should be considered in the context of a patient's recent exposures and the presence of clinical signs and symptoms consistent with COVID-19. An individual without symptoms of COVID-19 and who is not shedding SARS-CoV-2 virus would expect to have a negative (not detected) result in this assay. Performed At: [facility] [id number] Natalee Dugan PhD Ph:[phone] Performed By: #### [id number] ####[facility] ([facility], [facility])[address] [place] [address] Coding Summaryon 01-24-2021 Coding Summary HTMLBase 64 TxabmbqxRHh1yLn+PGhl YWQ+TY2GBUNdD82zcHLo aS2OS6fQIT0NYBLLJFKG NV3VBC7ltZI8RNhbK1Pu biAv AbwcrXEhXE62CEt0AXP4 lDqaSYlznT2ygLUzJ3t4 EdMiDN91mH73TMzrNXRe FxB8YdBfdqedkOIk Q1sfLxCyiARzQwk+PHRh YmxlIHdpZHRoPScxMDAl JuUfnGxhMP3jVs6kTSVy LWNvbGxhcHNlOiBj p8vxKOPzARrpEJ7tsGjq P5PprON3AYIcg2h2Wc83 dHI+JPVoKVT6uXymYIxj t372NiZjp8odMXN2 lSXlTQfdVIP4Q89ju2H8 UUHfJMDyZZX2aIZ5pX7c iWouklscT9EdvJLdBjE4 IXK1bYNgqB5yzFbh ryiflI3tAum+O21YLL1T PPDAGY2VZum2R7EwNdln dHI+YB75FUAuTN32xPNa fLTmp5fytFs2NcNc XREzGKY0tAgaGSqyv0Ck VTIsT69kpEKxt1M4ZTWl iHtqzCApBtLxgRQ4sY9l BJvehrywe8hrfaol Rxxky6nvzp74gZ54F86a QFnmMMFzLNS6ESRoUVJp eGxyxo2ysY5mUn2+IDxj t9knn2uhiTa8BlVs YSFoudEtiZrsWPR3b9Dl Xs31L7QpwYqtd8ZkSwk9 sw55eZMnu5O3hXS3MWjo BAJidB4zUThxLiU5 QKRtFeXfkH37cKPaBSca Wu9lsCcksBtbBS9pNQNl ukntQEGnxE0vTLQjeBKh wTffME7iSCTywzqu h135OdMlQAG5PRMdaJJv O5UfpG1hQaSpTPEsAPDs W2UezAWfWHmjY938PWmr WfS2GZDqvkFuK4Zn IDSbgXlmDkR6e3B9Ij2Y m3FvwnszFUN9EJzgNBX9 QbS4WgBrAtV1X6TpIay9 OURsxGrbUI8aI4Yj TZSxcjlqfhsyxED5XEHe EULmjA93vUCfHFksEm4i p6H7u545VPCuNBRyzA92 Cz0gmWwcNODrwAXT yR8kdlxxm9xuulnsOsRj VTWyRCc9KTz3JGYneYsn DeYfDFU2ScV6FHJ0gVLs oK1ekGbeqjjbqA5a Oyc+R46qiK2kZJW8PUB6 ezxxHIHcbvMwRY31TS61 U0XzQuobtQTiyFB+PGRp ieKadDudDB1wNzDz g6imi0KjOCqxC2TwDULq EBcnRlg8PPPtKLU1sFK1 tS4wUFRpDKksh6I4mNA8 N8GviuQijh1ez7gx MSHuYQmaL98epGXig1I5 WUGinJG1RLQslRevKoZi bP70Xgl+ZMZuwLjnt7Zz Evjrg9xqc7rehGa6 IjMwJSIgdmFsaWduPSJ0 r3MdVc52V18kAGykFRWo VDItFADyRGBfuRlrqz2m mS8gAc5+PGNvbCB3 yZI3bT9vSMEsPdT9NCqp S323ImYafQHgUxalm6hx t7gqlRl6XtJcCHQfsgGe uSuvVTD3h2PtJq39 C33zAIxeXAQeXSKhABIl RFHwqXrvxn3wkP1uCy3+ HM2ro5yhgp60zI39kZJ+ IWPzSCL0lTvuJMim XBBoqF3uVGivGhH6TPRy FeJdqE62kWAwPLqfDw0p jPprdMtnPB9qIFVwksaa g193IeVol3flQUDu yIKcMYtmSMQ7J11lh6U7 RYFmZFBeMTI9qIB8fM3p bGlnbjogbGVmdDsgdmVy oDiaMMmjGAozE704 IHRvcDsnPlBhdGllbnQg SeHfOAz1J1PxJec7GAAs gVubDC1vdXHlMIouGu6m lDbyxPgsAP2tKJAe ayzsa713PyLfw2jwRVIv iQZdZUrsVVE0E63ql5X4 TLGyFNBwAVQ9dOK1fS0i bGlnbjogbGVmdDsg gwCvjBrxDQbdCXxaG778 IHRvcDsnPkJpcnRoIERh wLW1RK01IH36cPCme6M0 bEF3Y3XbHMCdwdgn azcxgXS4VZFtNWKwwH12 Rc8mbByqLb5rKLYnCCE5 XMNajCUhX6TpiR2yTnUe PMQaLPHxO6RzxGRv UXnsQ172GQqiTfB9UISf zmArD1GbGOJcxLadZsZ4 r9S1Xc5IV4Z0QZ81BQ44 vNTok1Y4zQR2D8Ys OLOhqrnsqcizfZZ2QDZw GFXtjO60Hg2vcGnmPb2p BUJqUNR3FMGovQSsJ7Ak bD9yJlPiFTThTWHc J7GarKSiVUelQ692COij YfD3ZYVjocTpK8FgJMFx qGheRbE9l2Y7Cz8ZGRl0 KX80BT66fYLyy6M2 eHE2I9CjSSPlerczuhmx vKJ5CRXrSJVhoG92Xm1f xEtuXm0yWAQaEYF8LSEg wADkA3PylJ0qSpSo RLArWZJgP9VitWQoNTvq Q039CEmkCyL4ASWbpyEi Q6SzSHNlnFitMfS9t5Q9 Um2ZKRKtXD69GJN0 eVP9RH48JF57K9KiGfoa dGFibGU+PHRhYmxlIHdp ZHRoPScxMDAlJyBzdHls OX8mRe1iYIEoUGTu zWizmLVnLmQzd3lyMZJb PGciZC7syUzmL0OuwJT6 RIYgo4e2Ao87W74dJ4Jq dXA+HHHxtLL3eJR0 hO9nOcTxJlH4DZzkY064 WbUxrGCqKawuo2ivs9py nQd7EvE7TVMufrZelPcs ZNV0k3LgPg74Y29q IHdpZHRoPSIxNSUiIHZh bZzlin2ppW9mNw6+PGNv uPG0mZS8oO5cYyEjWqI0 DJlxV449TeGgjRMt Ldijw7hzg5vhoId0VfJu FMVyhxJvhZwjTZP5k3Kk Nv15H3XwpJcde3DwMoe5 mr40vBBqj9R2yXP6 Y2ZcEIGzricgsLCkpPlp OF9wSLNoqppmQLPjvE9m RWFfB0a2TnGePzF0TGyd K2HbbyE5ZRRfwBUs BRucDFY8X98va1A9LTPi WBHkOUN6rHO8wL4oaIes bjogbGVmdDsgdmVydGlj MXldTQhtV126ULGm fCfaVZPusF6gTQSjrWLj xIviMJ0yJPNljinxWjVN A9JLRudbYcVUIsMOAMqA SwYRNCEREBW1P3Jz Zrt6WVKmrBihBX7wpTPd GXqqNp1xqPgxkJpsMS0a WPDkgvvpAMPmrT4wIKXl gWCirMevCK1wRBSk oskmh805RoNfPHV3PMBx sUPvE8JpvB7eUyJjFAFd XJSfN1UvfENoOVcaI325 KPbrNqV8FZGklyTn R2IgGKGgjUgbGoQ0u8P5 Xp2cUJ3rAc0nJSK4IQ96 QC58kNOav0X9iQK0Z5Br ZGRpbmctcmlnaHQ6 LXPrTZQyxF68dLQnQOqf Ek6ui2V7q738DQWvRCAp fW01Wt2rbZmySZAjaFDD mS4qwknlm6yldgkx DoUlRPDuHFz9MQk8BHUq yNykCcFiIHI0FhD5ETU5 eJFshY0qvKadeqylrE4q Oyc+NjMgWWVhcnM8 Y6AuOea9ACHvqNbiIT0r nZAiMFtvDo4wzPzgpVru ZF2eWRYtlrskQDDakO6s FBWquHSsnJlbVJ1z INRpknckf519KjEbNUS0 TXKyxGKpD4PbjG3qYgCy HVUoLFDrG8DmfYOnPBkx H615EZxlHgK4VENa abBdP9CsRSUouQsbWxJ6 j6J8Ew9WKDwCIM72HQ57 fFZyg5V9zWH0N0FzUVOp sivlpwuacYT6TSYl YBVecG42lZWrOQmoFd4x x1Y5t794TGDtDKUduN13 Bw8rdNnwALObdXXOiA0d rpvmy1cowiedEaWa BZIbUKv7LOt6UNWztXdz NiAhDPR9VbT0OGW6rCAp dH5pcZmffendfD0uQye+ O4F4K3SeFqmddQO+ ZC78CDIpVT23oDYauZRp x1hvzWo2BoOzBKTkEAO9 zJvfAXfvj6BwHXDiK95x oXKgw1B1XRUeaPpk tFKfYjUnmYA4oH3gZFua yyavh0qjsdzzVmcqb0xr nr43mX72K72fPSemNPLy PSIzMCUiIHZhbGln sn8gtJ8vTo7+PGNvbCB3 dMD5hG3tIyCzZjR1LKrn V769NrRtzCCnMhwje8fo r0whxXl0MvWxNMIo lzPnyIzoUYM1c6BoGb56 D55wWMelOJQuJUTgKLHr ZDLflOrfmi3puJ1iOl0+ DX5gu9ujvm82aY24 dHI+TDHtUPD6qUdoWOmq DSHiqY7eGNoaOrC7RBIx VtEzxW40hOAbFPojFv9o sQzpbNqtYU7zSDXh spbsl181NeMmr8xnFDRc zDMbVDczPKH7L28cx8U9 TVUuIBGmMJV2lVT9qY0k bGlnbjogbGVmdDsg fwYxgHckALrjZGoyY006 RVTcyIxsCyNyoPYzW8dp ezQPUF4bSjgnvXF+PHRk ASU2uIqeKAcgSEEn sT9bSVXoN9u1JwOtIpZ7 WGtdG7HbbsT8RYEtrTNs CMIeyRXEcB1zwupge8lx cjogIzAwMDAwMDt0 ONt7QYDgaIehBxFeWRM4 LtR6CWT5kGAmuJ0mhIzj qglzeL6hSqa+RklOOjwv dGQ+WAKeUME2dHbo LKwkFDIkzJ4eRMVxY0y7 ViQzVlY6MDgvB2YtzyT2 DIUgpNWgGYRbpYILkC0i pthoi7ivhbtgHtHv OUKpTZz6DMb5MUCwkVst NkQbLMP0StF3WYJ5cEVa fO3xjGjchtutiQ5vOoq+ TVJOOjwvdGQ+PHRk VTM6qVgsNWayFGJucO5p TQHsS4o8AoCrHwC9PRzm S1OyoqZ2UPVxqORxTUOw hWLMcI7rkefhq1ab rjixBqWdLXMnRBw6LIr6 PIBjuWxzQqHaYOW5GmE1 MWX5mVUniU2huBmqttwt fA6bZwa+WDB7AHM3 DY46NR33H3XxPjqjgHOp bGU+PHRhYmxlIHdpZHRo QMskIDPuEkHezYheWF9y Kx3nQQXtZKQoqUcc cHN (more content not included)... [facility] Progress Note - Nurseon Progress Note - Nurse Dr. Spencer review ed chart and no new orders received. [Electronically Signed on: 01/24/2021 15:51 EDT] Rosa Lala RN [Verified on: 01/24/2021 15:51 EDT] Rosa Lala RN [facility] Provider Orderson 01-24-2021 Provider Orders [id number] #[id number] [facility] C Urineon 01-23-2021 C Urine No growth at 2 days. [facility] Comment on above: Performed By: #### 6 [id number] ####[facility] (DEFAULT)[address] [place] [address] 78665 .Auto Diff 1on 01-21-2021 Auto [place] % 7 % Normal 1-12 [facility] Comment on above: Performed By: #### 1 [id number] #### [facility] (DEFAULT) [address] [place] [address] 12538 Baso Abs# 0.0 x10 Normal 0.0-0.2 [facility] Comment on above: Performed By: #### 1 [id number], [id number] #### [facility] (DEFAULT) [address] [place] [address] Basophils/100 WBC (Bld) 0.5 % Normal 0.2-2.0 [facility] Comment on above: Performed By: #### 1 [id number], [id number] #### [facility] (DEFAULT) [address] [place] [address] 13902 Eos Abs# 0.4 x10 Normal 0.0-0.4 [facility] Comment on above: Performed By: #### 1 [id number] #### [facility] (DEFAULT) [address] [place] [address] 16200 Eosinophils/100 WBC (Bld) 5.2 % High 0.9-4.0 [facility] Comment on above: Performed By: #### 1 [id number], [id number] #### [facility] (DEFAULT) [address] [place] [address] 26171 Lymph Abs# 2.6 x10 Normal 1.3-2.9 [facility] Comment on above: Performed By: #### 1 [id number], [id number] #### [facility] (DEFAULT) [address] [place] [address] 01902 Lymphocytes/100 WBC (Bld) 33 % Normal 14-48 [facility] Comment on above: Performed By: #### 1 [id number] #### [facility] (DEFAULT) [address] [place] [address] 67206 [place] Abs# 0.6 x10 Normal 0.0-0.8 [facility] Comment on above: Performed By: #### 1 [id number], [id number] #### [facility] (DEFAULT) [address] [place] [address] 65029 Neut Abs# 4.2 x10 Normal 1.5-9.2 [facility] Comment on above: Performed By: #### 1 [id number], [id number] #### [facility] (DEFAULT) [address] [place] [address] 11242 Neutrophils/100 WBC (Bld) 54 % Normal 44-88 [facility] Comment on above: Performed By: #### 1 [id number], [id number] #### [facility] (DEFAULT) [address] [place] [address] 34649 BMP Standardon 01-21-2021 eGFR Non AA >60 Invalid Interpretation Code [facility] Comment on above: Performed By: #### 1 [id number] ####[facility] (DEFAULT)[address] [place] [address] 08749 eGFR AA >60 Invalid Interpretation Code [facility] Comment on above: Result Comment: Area Supervisor sneha Kidney disease could be indicated at eGFRs of less than 60 ml/min/1.73m2. Kidney Failure is indicated at less than 15 ml/min/1.73m2 Performed By: #### 1 [id number] ####[facility] (DEFAULT)[address] [place] [address] 86184 Anion gap [Moles/Vol] 16.0 mmol/L Normal 5.0-19.0 [facility] Comment on above: Performed By: #### 1 [id number] ####[facility] (DEFAULT)[address] [place] [address] 42191 Calcium [Mass/Vol] 9.2 mg/dL Normal 8.9-10.3 [facility] Comment on above: Performed By: #### 1 [id number] ####[facility] (DEFAULT)[address] [place] [address] 56551 Chloride [Moles/Vol] 101 mmol/L Normal 101-111 [facility] Comment on above: Performed By: #### 1 [id number] ####[facility] (DEFAULT)[address] [place] [address] 33363 CO2 [Moles/Vol] 24 mmol/L Normal 21-32 [facility] Comment on above: Performed By: #### 1 [id number] ####[facility] (DEFAULT)[address] [place] [address] 92771 Creatinine [Mass/Vol] 1.01 mg/dL Normal 0.90-1.30 [facility] Comment on above: Performed By: #### 1 [id number] ####[facility] (DEFAULT)[address] [place] [address] 28884 Glucose [Mass/Vol] 101.0 mg/dL Normal 74.0-118.0 [facility] Comment on above: Performed By: #### 1 [id number] ####[facility] (DEFAULT)[address] [place] [address] 83886 Osmolality 275 mOsm/L Invalid Interpretation Code [facility] Comment on above: Performed By: #### 1 [id number] ####[facility] (DEFAULT)[address] [place] [address] 85784 Potassium [Moles/Vol] 3.5 mmol/L Low 3.6-5.1 [facility] Comment on above: Performed By: #### 1 [id number] ####[facility] (DEFAULT)[address] [place] [address] 53168 Sodium [Moles/Vol] 137.0 mmol/L Normal 136.0-144.0 [facility] Comment on above: Performed By: #### 1 [id number] ####[facility] (DEFAULT)[address] [place] [address] 94906 Urea nitrogen [Mass/Vol] 16 mg/dL Normal 8-26 [facility] Comment on above: Performed By: #### 1 [id number] ####[facility] (DEFAULT)[address] [place] [address] 88134 Urea nitrogen/Creatinine [Mass ratio] 16.0 mg/mg Normal 4.6-16.2 [facility] Comment on above: Performed By: #### 1 [id number] ####[facility] (DEFAULT)[address] [place] [address] 88652 CBC w/ Auto Diffon 1 Erythrocyte distribution width (RBC) [Ratio] 14.8 % Normal 11.5-15.0 [facility] Comment on above: Performed By: #### 1 [id number] #### [facility] (DEFAULT) [address] [place] [address] Hematocrit (Bld) [Volume fraction] 47.5 % Normal 34.8-51.9 [facility] Comment on above: Performed By: #### 1 [id number], [id number] #### [facility] (DEFAULT) [address] [place] [address] Hemoglobin (Bld) [Mass/Vol] 16.1 g/dL Normal 11.8-17.7 [facility] Comment on above: Performed By: #### 1 [id number], [id number] #### [facility] (DEFAULT) [address] [place] [address] Instr WBC 7.8 x10 Invalid Interpretation Code [facility] Comment on above: Performed By: #### 1 [id number], [id number] #### [facility] (DEFAULT) [address] [place] [address] 00771 Man Diff? Auto Normal [facility] Comment on above: Performed By: #### 1 [id number], [id number] #### [facility] (DEFAULT) [address] [place] [address] 52606 MCH (RBC) [Entitic mass] 28 pg Normal 24-34 [facility] Comment on above: Performed By: #### 1 [id number], [id number] #### [facility] (DEFAULT) [address] [place] [address] 25543 MCHC (RBC) [Mass/Vol] 34 g/dL Normal 26-37 [facility] Comment on above: Performed By: #### 1 [id number], [id number] #### [facility] (DEFAULT) [address] [place] [address] 79587 MCV (RBC) [Entitic vol] 82 fL Normal 81-100 [facility] Comment on above: Performed By: #### 1 [id number], [id number] #### [facility] (DEFAULT) [address] [place] [address] 61495 Platelet 248 x10 Normal 138-427 [facility] Comment on above: Performed By: #### 1 [id number], [id number] #### [facility] (DEFAULT) [address] [place] [address] 46010 Platelet mean volume (Bld) [Entitic vol] 8.8 fL Normal 6.3-10.2 [facility] Comment on above: Performed By: #### 1 [id number], [id number] #### [facility] (DEFAULT) [address] [place] [address] 00967 RBC 5.82 x10 High 3.70-5.30 [facility] Comment on above: Performed By: #### 1 [id number], [id number] #### [facility] (DEFAULT) [address] [place] [address] 47041 WBC 7.8 x10 Normal 3.5-10.5 [facility] Comment on above: Performed By: #### 1 [id number], [id number] #### [facility] (DEFAULT) [address] [place] [address] 98174 Consent for COVID Vaccineon 11-30-2020 SARS-CoV-2 (COVID-19) RNA VERONA+probe Ql (Unsp spec) [id number] 0#1.00CD:127 Normal [facility] Consent for COVID Vaccineon 11-08-2020 SARS-CoV-2 (COVID-19) RNA VERONA+probe Ql (Unsp spec) [id number] 1#1.00CD:127 Normal [facility] Consent for Treatmenton 10-19 Consent for Treatment [id number] 7#1.00CD:127 Normal [facility] Coding Summary.on 11-04-2020 Coding Summary. CODING DATE: 11/04/2020 FINAL [facility] STATUS: PAYOR: Benedict APC DESCRIPTION [employer] - Level 1B ($11-$20) ADMIT DX: REASON FOR VISIT DX: Z23 Encounter for immunization FINAL DX: PRINCIPAL: Z23 Encounter for immunization SECONDARY: PYMT PROC APC STAT DESCRIPTION DOCTOR NAME DATE NOTE: The code number assigned matches the documented diagnosis and / or procedure in the patient's chart. However, the narrative phrase printed from the coding software may appear abbreviated, or result in slightly different terminology. Coded By: Georgie Flower CphT Date Saved: 11/04/2020 08:25 am Normal [facility] CBC AUTO DIFFon 07-30-2019 Basophils (Bld) [#/Vol] 0.1 103/ul Normal 0.0-0.[address] [facility] Comment on above: Performed By: #### C BC #### [facility] [address] [place] [address] Yesenia Ella Basophils/100 WBC (Bld) 0.8 % Normal 0.2-2.[address] [facility] Comment on above: Performed By: #### C BC #### [facility] [address] [place] [address] Yesenia Ella Eosinophils (Bld) [#/Vol] 0.4 103/ul Normal 0.0-0.[address] [facility] Comment on above: Performed By: #### C BC #### [facility] [address] [place] [address] Yesenia Ella Eosinophils/100 WBC (Bld) 6.0 % Normal 0.9-7.[address] [facility] Comment on above: Performed By: #### C BC #### [facility] [address] [place], [place] [address] Yesenia Ella Erythrocyte distribution width (RBC) [Ratio] 13.6 % Normal 11.0-15.[address] [facility] Comment on above: Performed By: #### C BC #### [facility] [address] [place], [place] [address] Yesenia Ella Hematocrit (Bld) [Volume fraction] 44.6 % Normal 42.0-54.[address] [facility] Comment on above: Performed By: #### C BC #### [facility] [address] [place], [place] [address] Yesenia Ella Hemoglobin (Bld) [Mass/Vol] 15.2 g/dL Normal 14.0-18.[address] [facility] Comment on above: Performed By: #### C BC #### [facility] [address] [place], [place] [address] Yesenia Ella IG # 0.02 10e3/ul Normal 0.00-0.[address] [facility] Comment on above: Performed By: #### C BC #### [facility] [address] [place], [place] [address] Yesenia Ella IG % 0.3 % Normal 0.0-0.5 [facility] Comment on above: Performed By: #### C BC #### [facility] [address] [place], [place] [address] Yesenia Ella Lymphocytes (Bld) [#/Vol] 1.9 103/ul Normal 1.2-3.[address] [facility] Comment on above: Performed By: #### C BC #### [facility] [address] [place] [address] Yesenia Ella Lymphocytes/100 WBC (Bld) 31.7 % Normal 20.5-60.[address] [facility] Comment on above: Performed By: #### C BC #### [facility] [address] [place], [place] [address] Yesenia Ella MANUAL DIFF REQ NO Normal [facility] Comment on above: Performed By: #### C BC #### [facility] [address] [place], [place] [address] Yesenia Ella MCH (RBC) [Entitic mass] 27.9 pg Normal 25.9-34.0 [facility] Comment on above: Performed By: #### C BC #### [facility] [address] [place], [place] [address] Yesenia Ella MCHC (RBC) [Mass/Vol] 34.1 g/dL Normal 29.9-35.[address] [facility] Comment on above: Performed By: #### C BC #### [facility] [address] [place], [place] [address] Yesenia Ella MCV (RBC) [Entitic vol] 82.0 fL Normal 80.0-94.0 [facility] Comment on above: Performed By: #### C BC #### [facility] [address] [place], [place] [address] Yesenia Ella Monocytes (Bld) [#/Vol] 0.5 103/ul Normal 0.3-0.8 [facility] Comment on above: Performed By: #### C BC #### [facility] [address] [place], [place] [address] Yesenia Ella Monocytes/100 WBC (Bld) 8.5 % Normal 1.7-12.0 [facility] Comment on above: Performed By: #### C BC #### [facility] [address] [place], [place] [address] Yesenia Ella Neutrophils (Bld) [#/Vol] 3.2 103/ul Normal 1.4-6.[address] [facility] Comment on above: Performed By: #### C BC #### [facility] [address] [place] [address] Yesenia Ella Neutrophils/100 WBC (Bld) 52.7 % Normal 43.0-75.0 [facility] Comment on above: Performed By: #### C BC #### [facility] [address] [place], [place] [address] Yesenia Ella Platelet mean volume (Bld) [Entitic vol] 9.0 fL Critically low 9.5-13.[address] [facility] Comment on above: Performed By: #### C BC #### [facility] [address] [place] [address] Yesenia Ella Platelets (Bld) [#/Vol] 185 103/ul Normal 150-[address] [facility] Comment on above: Performed By: #### C BC #### [facility] [address] [place] [address] Yesenia Ella RBC (Bld) [#/Vol] 5.44 106/ul Normal 4.70-6.10 [facility] Comment on above: Performed By: #### C BC #### [facility] [address] [place], [place] [address] Yesenia Ella WBC (Bld) [#/Vol] 6.0 103/ul Normal 4.0-11.0 [facility] Comment on above: Performed By: #### C BC #### [facility] [address] [place], [place] [address] ABD/PELVIS W CONon 2018 CT ABD/PELVIS W CON Patient: MAHESH GONZALEZ Exam Date: 07/30/2019 : 1955 Gender:M Ordering : DR. RENE BENNETT M.D. Admission #: [id number] Family : Order #: [id number] CLICK HERE TO VIEW EXAM RADIOLOGY REPORT PROCEDURE: CT ABDOMEN AND PELVIS WITH CONTRAST COMPARISON: None. INDICATIONS: Acute left flank pain for one day TECHNIQUE: CT images were created with IV contrast. Axial, Coronal, and Sagittal images. DOSE: 2858mGycm; 100cc Omnipaque 300 FINDINGS: LUNG BASES: Bibasilar atelectasis LIVER: No enlargement, atrophy, abnormal density, or significant focal lesion. BILIARY: Surgical clips from cholecystectomy PANCREAS: No lesion, fluid collection, ductal dilatation, or atrophy. SPLEEN: No enlargement or focal lesion. ADRENALS: No mass or enlargement. KIDNEYS: No mass, obstruction, or calcification. BOWEL/MESENTERY: Moderate colonic diverticulosis. Nonobstructive bowel gas pattern. Normal appendix. Mild fluid filling of small bowel loops in the right lower quadrant AORTA/VASCULAR: No aortic aneurysm. Moderate atherosclerosis RETROPERITONEUM: No mass or adenopathy. LYMPH NODES: No adenopathy. URINARY BLADDER: No visible focal wall thickening, lesion, or calculus. PELVIC ORGANS: No visible mass. Pelvic organs appropriate for patient age. ABDOMINAL WALL: No mass or hernia. BONES: Degenerative spondylosis OTHER: Report July 30, 2019 at 5:20 a.m. CONCLUSION: 1. Fluid filling of several small bowel loops in the right lower quadrant could represent an enteritis. Dictated by: Zaid Epps M.D. on 07/30/2019 at 07:39 Approved by: Zaid Epps M.D. on 07/30/2019 at 07:[address] [facility] ER URINE PROFILEon 9 Bilirubin [Mass/Vol] Negative Normal NEGATIVE [facility] Comment on above: Performed By: #### E RUR #### [facility] [address] [id number] Yesenia Jaramillo BLOOD Negative Normal NEGATIVE [facility] Comment on above: Performed By: #### E RUR #### [facility] [address] [place] [address] Yesenia Ella Clarity (U) CLEAR Normal [facility] Comment on above: Performed By: #### E RUR #### [facility] [address] [place] [address] Yesenia Ella Color (U) LT. YELLOW Normal YELLOW [facility] Comment on above: Performed By: #### E RUR #### [facility] [address] [place] [address] Yesenia Ella ERUAHD A micrscopic examination will be performed if indicated. Normal [facility] Comment on above: Performed By: #### E RUR #### [facility] [address] [place] [address] Yesenia Ella Glucose [Mass/Vol] >1000 Normal NEGATIVE [facility] Comment on above: Performed By: #### E RUR #### [facility] [address] [place] [address] Yesenia Ella Ketones Ql (U) Negative Normal NEGATIVE [facility] Comment on above: Performed By: #### E RUR #### [facility] [address] [place] [address] Yesenia Ella Nitrite Ql (U) Negative Normal NEGATIVE [facility] Comment on above: Performed By: #### E RUR #### [facility] [address] [place] [address] Yesenia Ella pH (Bld) 6.0 Normal 5-9 [facility] Comment on above: Performed By: #### E RUR #### [facility] [address] [place] [address] Yesenia Ella Protein (U) [Mass/Vol] Negative Normal [facility] Comment on above: Performed By: #### E RUR #### [facility] [address] [place] [address] Yesenia Ella SPEC GRAVITY <=1.005 Normal 1.005-<=1.02 5 [facility] Comment on above: Performed By: #### E RUR #### [facility] [address] [place], [place] [id number] Yesenia Jaramillo UR MICRO IND NOT INDICATED Normal [facility] Comment on above: Performed By: #### E RUR #### [facility] [address] [place], [place] [id number] Yesenia Ella Urobilinogen Qn (U) 0.2 EU/dl Normal [facility] Comment on above: Performed By: #### E RUR #### [facility] [address] [id number] Yesenia Jaramillo WBC (Bld) [#/Vol] Negative Normal NEGATIVE [facility] Comment on above: Performed By: #### E RUR #### [facility] [address] [place], [place] [id number] Yesenia Jaramillo PROF 14(COMP METB)on 019 Albumin [Mass/Vol] 3.6 g/dL Normal 3.5-5.0 [facility] [facility] Comment on above: Performed By: #### C MP #### [facility] [address] [place], [place] [id number] Yesenia Jaramillo Albumin/Globulin [Mass ratio] 1.0 {ratio} Normal [facility] Comment on above: Performed By: #### C MP #### [facility] [address] [place], [place] [id number] Yesenia Ella ALP [Catalytic activity/Vol] 92 U/L Normal 38-126 [facility] Comment on above: Performed By: #### C MP #### [facility] [address] [place] [address] Yesenia Ella ALT [Catalytic activity/Vol] 35 U/L Normal 21-72 [facility] Comment on above: Performed By: #### C MP #### [facility] [address] [place], [place] [id number] Yesenia Jaramillo Anion gap [Moles/Vol] 12.9 mmol/L Normal [facility] Comment on above: Performed By: #### C MP #### [facility] [address] [place], [place] [id number] Yeseniarosendo Jaramillo AST [Catalytic activity/Vol] 30 U/L Normal 17-59 [facility] Comment on above: Performed By: #### C MP #### [facility] [address] [place], [place] [phone] Yesenia Ella Bilirubin Ql (U) 0.4 mg/dL Normal 0.2-1.3 [facility] Comment on above: Performed By: #### C MP #### [facility] [address] [address] Yesenia Ella Calcium [Mass/Vol] 9.0 mg/dL Normal 8.4-10.2 [facility] Comment on above: Performed By: #### C MP #### [facility] [address] [place] [address] Yesenia Ella Chloride [Moles/Vol] 102 mmol/L Normal 98-107 [facility] Comment on above: Performed By: #### C MP #### [facility] [address] [place] [address] Yesenia Ella CO2 [Moles/Vol] 27.5 mmol/L Normal 22.0-30.0 [facility] Comment on above: Performed By: #### C MP #### [facility] [address] [place] [address] Yesenia Ella Creatinine [Mass/Vol] 1.06 mg/dL Normal 0.66-1.25 [facility] Comment on above: Performed By: #### C MP #### [facility] [address] [place] [address] Yesenia Ella EGFR-AF GERMAN >60 Normal >=60 [facility] Comment on above: Performed By: #### C MP #### [facility] [address] [place], [place] [id number] Yesenia Ella EGFR-NON AF GERMAN >60 Normal >=[address] [facility] Comment on above: Performed By: #### C MP #### [facility] [address] [place], [place] [id number] Yesenia Ella Globulin (S) [Mass/Vol] 3.5 g/dL Normal [facility] Comment on above: Performed By: #### C MP #### [facility] [address] [place], [place] [address] Yesenia Ella Glucose [Mass/Vol] 209 mg/dL Critically high 74-106 [facility] Comment on above: Performed By: #### C MP #### [facility] [address] [place], [place] [address] Yesenia Ella Potassium [Moles/Vol] 3.4 mmol/L Normal 3.4-5.0 [facility] Comment on above: Performed By: #### C MP #### [facility] [address] [id number] Yesenia Lela Protein [Mass/Vol] 7.1 g/dL Normal 6.1-8.2 [facility] Comment on above: Performed By: #### C MP #### [facility] [address] [id number] Yesenia Ella Sodium [Moles/Vol] 139 mmol/L Normal 137-145 [facility] Comment on above: Performed By: #### C MP #### [facility] [address] [id number] Yesenia Ella Urea nitrogen [Mass/Vol] 16.0 mg/dL Normal 9.0-20.[address] [facility] Comment on above: Performed By: #### C MP #### [facility] [address] [id number] Yesenia Ella Urea nitrogen/Creatinine [Mass ratio] 15.1 mg/mg Normal [facility] Comment on above: Performed By: #### C MP #### [facility] [address] [place], [place] [address] Yesenia Ella Vital Signs Date Time Vital Sign Value Performing Clinician Facility 07-22-2024 13:06050 Body height 177.8 cm Roxy Ferrera MD Work Phone: [facility] 07-22-2024 13:06-050 Body mass index (BMI) [Ratio] 37.59 kg/m2 Roxy Ferrera MD Work Phone: [facility] 07-22-2024 13:06050 Body weight 118.84 kg Roxy Ferrera MD Work Phone: [facility] 07-22-2024 13:06-0500 Diastolic blood pressure 72 mm[Hg] Roxy Ferrera MD Work Phone: [facility] 07-22-2024 13:06-0500 Heart rate 69 /min Roxy Ferrera MD Work Phone: [facility] 07-22-2024 13:06-0500 SaO2% (BldA) [Mass fraction] 97 % Roxy Ferrera MD Work Phone: [facility] 07-22-2024 13:06-0500 Systolic blood pressure 136 mm[Hg] Roxy Ferrera MD Work Phone: [facility] 07-10-2024 10:00-0500 Diastolic blood pressure 64 mm[Hg] Roxy Ferrera MD Work Phone: [facility] 07-10-2024 10:00-0500 Heart rate 60 /min Roxy Ferrera MD Work Phone: [facility] 07-10-2024 10:00-0500 Respiratory rate 16 /min Roxy Ferrera MD Work Phone: [facility] 07-10-2024 10:00-0500 SaO2% (BldA) [Mass fraction] 98 % Roxy Ferrera MD Work Phone: [facility] 07-10-2024 10:00-0500 Systolic blood pressure 106 mm[Hg] Roxy Ferrera MD Work Phone: [facility] 07-10-2024 08:31-0500 Body height 177.8 cm Roxy Ferrera MD Work Phone: [facility] 07-10-2024 08:31-0500 Body weight 113.39 kg Roxy Ferrera MD Work Phone: [facility] 05-20-2024 13:32-0400 Body height 177.8 cm Roxy Ferrera MD Work Phone: [facility] 05-20-2024 13:32-0400 Body mass index (BMI) [Ratio] 36.88 kg/m2 Roxy Ferrera MD Work Phone: [facility] 05-20-2024 13:32-0400 Body weight 116.57 kg Roxy Ferrera MD Work Phone: [facility] 05-20-2024 13:32-0400 Diastolic blood pressure 82 mm[Hg] Roxy Ferrera MD Work Phone: [facility] 05-20-2024 13:32-0400 Heart rate 68 /min Roxy Ferrera MD Work Phone: [facility] 05-20-2024 13:32-0400 SaO2% (BldA) [Mass fraction] 95 % Roxy Ferrera MD Work Phone: [facility] 05-20-2024 13:32-0400 Systolic blood pressure 118 mm[Hg] Roxy Ferrera MD Work Phone: [facility] Encounters Encounter Date Encounter Type Care Provider Facility Start: 09-16-2024 End: 09-16-2024 ambulatory HERO DUENAS Not Available Start: 07-29-2024 End: 07-29-2024 ambulatory [facility] Start: 07-22-2024 End: 07-22-2024 Office outpatient visit 25 minutes Roxy Ferrera MD Work Phone: [facility] Comment on above: Tubular adenoma of c olon (Primary Dx); Type 2 diabetes mellitus with other specified complication, with long-term current use of insulin (CMS/HCC); Hypertension associated with diabetes (HCC) (CMS/HCC) Start: 07-22-2024 End: 07-22-2024 ambulatory ROXY FERRERA Not Available Start: 07-10-2024 Non-patient / Non-visit Roxy Ferrera MD Work Phone: [facility] Work Phone: Start: 07-10-2024 End: 07-10-2024 Admission to same day surgery center Roxy Ferrera MD Work Phone: [facility] Work Phone: Start: 07-10-2024 End: 07-10-2024 ambulatory Roxy Ferrera MD Work Phone: [facility] Work Phone: Start: 07-07-2024 End: 07-07-2024 Clinisync Result Encounter Generic External Data Provider [facility] Unsolicited Start: 07-07-2024 End: 07-07-2024 Clinisync Result Encounter Generic External Data Provider [facility] Unsolicited Start: 05-27-2024 End: 05-27-2024 Telephone encounter Rxoy Ferrera MD Work Phone: [facility] Comment on above: Med Refill (Pt needs Toujeo Insulin pen sent to [employer] mail in and would like 90 days supply ) Start: 05-20-2024 End: 05-20-2024 Office outpatient visit 25 minutes Roxy Ferrera MD Work Phone: [facility] Comment on above: Benign essential hyp ertension (CMS/HCC) (Primary Dx); Screen for colon cancer; Type 2 diabetes mellitus with other specified complication, with long-term current use of insulin (CMS/HCC); Hypertension associated with diabetes (HCC) (CMS/HCC) Start: 05-20-2024 End: 05-20-2024 ambulatory ROXY FERRERA Not Available Start: 04-29-2024 End: 04-29-2024 ambulatory [facility] Start: 03-25-2024 End: 03-25-2024 ambulatory [facility] Start: 01-22-2024 End: 01-22-2024 ambulatory ROXY FERRERA Not Available Start: 10-22-2023 Patient encounter procedure Roxy Ferrera MD Work Phone: [facility] Start: 10-22-2023 End: 10-22-2023 ambulatory ROXY FERRERA Not Available Start: 10-08-2023 End: 10-08-2023 ambulatory HERO DUENAS Not Available Start: 07-30-2019 End: 07-30-2019 Patient encounter procedure ROXY FERRERA Facility:[facility] Start: 06-05-2019 End: 06-06-2019 Patient encounter procedure CRISTINA COURTNEY Facility:[facility] Procedures Date Procedure Procedure Detail Performing Clinician Start: 09-16-2024 Computerized ophthal hilaria imaging optic nerve Hero Duenas DO Work Phone: Start: 09-16-2024 End: 09-16-2024 Oph medical xm&eval comprhnsv estab pt 1/> Primary open angle glaucoma (POAG) of both eyes, mild stage (CMS/HCC) Hero Duenas DO Work Phone: Comment on above: Primary open angle g laucoma (POAG) of both eyes, mild stage (CMS/HCC) (Primary Dx); Type 2 diabetes mellitus without complication, without long-term current use of insulin (CMS/HCC); Age-related nuclear cataract of both eyes; Dry eyes Start: 07-10-2024 Screening colonoscopy Rex Ferrera MD Work Phone: Start: 07-10-2024 Colonoscopy Generic Pr ovider Start: 07-07-2024 ALL CBC WITH AUTO DIFF Generic External Data Provider Start: 07-07-2024 [facility] CMP (CMP)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 with other specified complication, with long-term current use of insulin (CMS/HCC) Hypertension associated with diabetes (HCC) (CMS/HCC) Unspecified essential hypertension documented in this encounter [facility]* Diagnosis Benign essential hypertension (CMS/HCC)- Primary Essential hypertension, benign Type 2 diabetes mellitus without complication, unspecified whether adjunct faculty for medical terminology insulin use (CMS/HCC) Pure hypercholesterolemia (CMS/HCC) Pure hypercholesterolemia Benign essential hypertension (CMS/HCC)- Primary Essential hypertension, benign Type 2 diabetes mellitus without complication, with long-term current use of insulin (CMS/HCC) Routine general medical examination at health care facility- Primary Routine general medical examination at a health care facility Abnormal glucose tolerance test Impaired glucose tolerance test Benign essential hypertension (CMS/HCC) Essential hypertension, benign Nocturia Type 2 diabetes mellitus without complication, with long-term current use of insulin (CMS/HCC) Pure hypercholesterolemia (CMS/HCC) Pure hypercholesterolemia Pure hypertriglyceridemia (CMS/HCC) Medicare annual wellness visit, initial Type 2 diabetes mellitus with diabetic cataract, with long-term current use of insulin (CMS/HCC) Type 2 diabetes mellitus with other specified complication, with long-term current use of insulin (CMS/HCC) Erectile dysfunction, unspecified erectile dysfunction type Impotence of organic origin Benign essential hypertension (CMS/HCC)- Primary Essential hypertension, benign Type 2 diabetes mellitus with other specified complication, with long-term current use of insulin (CMS/HCC) Atherosclerosis of atka coronary artery of atka heart without angina pectoris (CMS/HCC) Hypertension due to endocrine disorder (CMS/HCC) Benign essential hypertension (CMS/HCC)- Primary Essential hypertension, benign Screen for colon cancer Special screening for malignant neoplasms, colon Type 2 diabetes mellitus with other specified complication, with long-term current use of insulin (CMS/HCC) Hypertension associated with diabetes (HCC) (CMS/HCC) Unspecified essential hypertension Tubular adenoma of colon- Primary Benign neoplasm of colon Type 2 diabetes mellitus with other specified complication, with long-term current use of insulin (CMS/HCC) Hypertension associated with diabetes (HCC) (CMS/HCC) Unspecified essential hypertension Primary open angle glaucoma (POAG) of both eyes, mild stage (CMS/HCC)- Primary Type 2 diabetes mellitus without complication, without long-term current use of insulin (CMS/HCC) Age-related nuclear cataract of both eyes Dry eyes Unspecified tear film insufficiency documented in this encounter [facility] and [facility] note Author Salinas Philip [facility] Note Date/Time July 10, 2024 10:13am [facility] [address] [place] [address] Gastroenterology H&P Signed Patient: Mahesh Gonzalez JR MR# : [id number] : 1955 Acct:[id number] Age/Sex: 68 / M Adm Date: 4 Loc: Room: Type: [facility] Attending Dr: Salinas Philip MD Copies to: MD Roxy Crooks MD~ Date of Service: 07/10/2024 HISTORY & PHYSICAL: Patient's history with special attention to the cardiovascular, pulmonary systems and the current problem was reviewed with the patient immediately prior to the procedure. Present medications and doses reviewed in the EMR. Allergies and pertinent laboratory tests were also reviewedat this time in the EMR. The physical examination, as below, was then performed. Indication, assessment and HPI: 68-year-old male presents for screening colonoscopy Family history of GI malignancy? Screening PHYSICAL EXAMINATION Mouth and Pharynx : moist mucus membranes, normal dentition Eyes: EOM intact b/l, normal sclera Pulmonary: normal respiratory effort, able to speak in complete sentences Neurological: alert and oriented x3, moves all extremities Skin: non-jaundiced, warm and dry Abdomen: non-distended, normal to inspection Psych: Mental status and mood grossly normal REVIEW OF SYSTEMS Constitutional: Denies malaise, fevers Cardiovascular: Denies chest pain, palpitations Respiratory: Denies shortness of breath, wheezing Gastrointestinal: Per HPI Genitourinary: Denies dysuria, polyuria Musculoskeletal: Denies joint swelling, joint stiffness Neurological: Denies numbness, tingling Integumentary: Denies rashes, skin lesions Endocrine: Denies fatigue, weight loss Written informed consent obtained from the patient. Risks (including but not limited to perforation, infection, bloating, bleeding, need for emergent surgeryand loss of life), benefits and alternatives explained and questions answered. The patient verbalized understanding. Based on history patient is an appropriate candidate for the procedure. Salinas Philip MD Documented By: Salinas Philip MD 07/10/24910 Signed By: <Electronically signed by Salinas Philip MD> 07/10/24910 [facility] Work Phone: Reason for referral (narrative)* Consultation (Routine) - Pending Review Specialty Diagnoses / Procedures Referred By Sha hernandez Referred To Contact Gastroenterology Diagnoses Screen for colon cancer Procedures SC OFFICE/OUTPATIENT NEW HIGH MDM 60 MINUTES Roxy Ferrera MD [address] [facility] [address] [place] [address] Referral ID Status Reason Start Date Expiration Date Visits Requested Visits Authorized [id number] Pending Review Specialty Services Required 05/20/2024 11/16/2024 1 1 [facility] Summary Purpose Family History No Family History Records Found Relationship Condition Age at Onset Recorded Date/T princess father Diabetes mellitus Unknown Heart disease Unknown mother Diabetes mellitus Unknown Renal failure Unknown Advance Directives No Advanced Directives Records Found Advance Directive Response Recorded Date/ Time Advance Directives No April 5:35pm Chief Complaint and Reason for Visit Chief Complaint Admit Date Screening July 10, 2024 8:03am Screening July 10, 2024 9:11am Additional Source Comments (unrecognized sect ion and content) No Status Records FoundNo Status Records FoundNo Status Records FoundNo Status Records FoundNo Status Records FoundNo Status Records FoundNo Status Records Found INFORMATION SOURCE (unrecogn ized section and content) DATE CREATED AUTHOR 08/01/2019 [facility] DATE CREATED AUTHOR AUTHOR'S ORGANIZ ATION 02/19/2021 [facility] DATE CREATED AUTHOR AUTHOR'S ORGANIZ ATION 02/24/2021 [facility] DATE CREATED AUTHOR AUTHOR'S ORGANIZ ATION 09/07/2021 [facility] DATE CREATED AUTHOR AUTHOR'S ORGANIZ ATION 07/24/2024 [facility] DATE CREATED AUTHOR AUTHOR'S ORGANIZ ATION 09/17/2024 [facility] EPIC DATE CREATED AUTHOR AUTHOR'S ORGANIZ ATION 10/05/2024 [facility] Reason for Visit (unrecogniz ed section and content) Reason Comments Diabetes Last A1c was 7.1 Reason Onset Date Comments Med Refill 05/27/2024 Pt needs Toujeo Insulin pen sent to [facility] mail in and would like 90 days supply Reason Comments Diabetes Last A1c was 7.1 on 05/20/24Micro needed Hypertension Reason Comments Follow-up Glaucoma Care Teams (unrecognized sec tion and content) Lapel Stitcher Relationship Specialty Start Date End Date Roxy Ferrera MD [address] [facility] [address] [place] [address] PCP - [employer] 11/18/22 Roxy Ferrera MD [address] [place] [address] PCP - General Family Medicine 03/19/23 Roxy Ferrera MD [address] [place] [address] PCP - [employer] 08/20/23 Erick Barajas OD [address] [place] [address] Referring Physician Optometry 03/11/24 Lapel Stitcher Relationship Specialty Start Date End Date Roxy Ferrera MD [address] [place] [address] PCP - [employer] 11/18/22 Roxy Ferrera MD [address] [place] [address] PCP - General Family Medicine 03/19/23 Roxy Ferrera MD [address] [place] [address] PCP - [employer] 08/20/23 Erick Barajas OD [address] [place] [address] Referring Physician Optometry 03/11/24 Team Status: Active Member Role Status Dates Roxy Ferrera MD Primary Care Provider Active Team Status: Inactive Member Role Status Dates Roxy Ferrera MD Primary Care Provider Active S tart: July 10, 2024 End: July 10, 2024 Salinas Philip MD Attending Provider Active S tart: July 10, 2024 End: July 10, 2024 Team Status: Active Member Role Status Dates Roxy Ferrera MD Primary Care Provider Active S tart: July 10, 2024 Salinas Philip MD Attending Provider, Other Provider Active Start: July 10, 2024 Lapel Stitcher Relationship Specialty Start Date End Date Roxy Ferrera MD [address] [facility] [address] [place] [address] PCP - [employer] 11/18/22 Roxy Ferrera MD [address] [facility] [address] [place] [address] PCP - General Family Medicine 03/19/23 Roxy Ferrera MD [address] [facility] [address] [place] [address] PCP - [employer] 08/20/23 Erick Barajas OD [address] [place] [id number] Referring Physician Optometry 03/11/24 Lapel Stitcher Relationship Specialty Start Date End Date Roxy Ferrera MD [address] [facility] [address] [place] [address] PCP - [employer] 11/18/22 Roxy Ferrera MD [address] [place] [address] PCP - General Family Medicine 03/19/23 Roxy Ferrera MD [address] [facility] [address] [place] [address] PCP - [employer] 08/20/23 Erick Barajas, OD [address] [place], [place] [id number] Referring Physician Optometry 03/11/24 Lapel Stitcher Relationship Specialty Start Date End Date Roxy Ferrera MD [address] [facility] [address] [place] [address] PCP - [employer] 11/18/22 Roxy Ferrera MD [address] [facility] [address] [place] [address] PCP - General Family Medicine 03/19/23 Roxy Ferrera MD [address] [facility] [address] [place] [address] PCP - [employer] 08/20/23 Erick Barajas OD [address] [place], [place] [id number] Referring Physician Optometry 03/11/24 FOR RECORDS PERTAINING TO PATIENTS WHO ARE OR HAVE BEEN ENROLLED IN A CHEMICAL DEPENDENCY/SUBSTANCEABUSE PROGRAM, SOME INFORMATION MAY BE OMITTED. This clinical summary was aggregated from multiple sources. Caution should be exercised in using it in the provision of clinical care. This summary normalizes information from multiple sources, and as a consequence, information in this document may materially change the coding, format and clinical context of patient data. In addition, data may be omitted in some cases. CLINICAL DECISIONS SHOULD BE BASED ON THE PRIMARY CLINICAL RECORDS. [employer] provides no warranty or guarantee of the accuracy or completeness of information in this document.
[2024-10-17 04:07] LABS: Estradiol 5.9 pg/mL (7.6-42.6); Sex Horm Binding Glob, Serum 24.9 nmol/L (19.3-76.4)
[2024-10-22 09:09] LABS: Free Testosterone(Direct) 7.3 pg/mL (6.6-18.1); Testosterone 403 ng/dL (264-916)
== END 2024-10-16 08:23 | disposition home or self-care (01) ==
LOC: LAB 08:27
PROVIDERS: PCP Family Medicine
DX: E29.1 Testicular hypofunction (principal)
CPT/HCPCS: 36415; 82670; 84270; 84402; 84403

== ENCOUNTER 2025-05-11 10:49 | Outpatient (OUT) | payer MEDICARE, SELFPAY ==
--- OUTSIDE RECORDS SUMMARY | 2025-05-11 10:54 | XMS_ITS | Encounter Summary ---
Author Organization [facility] Address [address] [place] [address] Care Team Providers Care Cd Reactor Operator Name Role Phone Rosy Cotton MD Unavailable Rosy Cotton MD Primary Care Provider [phone], Ximena SHERWOODN Unavailable [phone] Rosy Cotton MD Unavailable Jenn Erick LOOMIS Unavailable Encounter Details Date Type Department Care Team (Late Contact Info) Description 03/22/2023 Abstract [facility] [place] [facility] [address] [facility] 110 [place] [phone] Rosy Cotton MD [address] [facility] 110 [place] [address] Social History Tobacco Use Types Packs/Day Years Used Date Smoking Tobacco: Never Smokeless Tobacco: Never Tobacco Cessation:Counseling Given: Not Answered Alcohol Use Standard Drinks/Week Comments Not Currently 0 (1 standard drink = 0.6 oz pur e alcohol) Sex and Gender Information Value Date Recorded Sex Assigned at Not on file Legal Sex Male 6:53 PM EDT Gender Identity Not on file Sexual Orientation Not on file documented as of this encounter Plan of Treatment Upcoming Encounters Date Type Department Care Team ([facility] Contact Info) Description 07/20/2025 1:00 PM EST Office Visit [facility] [place] [facility] [address] [facility] [facility] 110 [place] [address] Rosy Cotton MD [address] [facility] 110 [place] [address] 09/29/2025 9:15 AM EST Office Visit [facility] [address] [place] [phone] Dimitri Duenas, DO [address] [place] [address] documented as of this encounter Visit Diagnoses Not on filedocumented in this encounter Care Teams Cd Reactor Operator Relationship Specialty Start Date End Date Rosy Cotton MD [address] [place] [address] PCP - [employer] 11/18/22 10/24/24 Rosy Cotton MD [address] [facility] 110 [place] [address] PCP - General Family Medicine 03/19/23 Rosy Cotton MD [address] [facility] 110 [place] [address] PCP - [employer] 08/20/23SundayXimena LPN [address] [place] [address] Licensed Practical Nurse Family Medicine 09/14/2309/17 Erick Barajas OD [address] [place] [address] Referring Physician Optometry 03/11/24 documented as of this encounter
--- OUTSIDE RECORDS SUMMARY | 2025-05-11 10:55 | XMS_ITS | Encounter Summary ---
Author Organization [facility] Address [address] [facility] [place] [address] Care Team Providers Care Mat Packer Name Role Phone Rosy Cotton MD Unavailable Rosy Cotton MD Primary Care Provider [phone] Rosy Cotton MD Unavailable Erick Barajas OD Unavailable Encounter Details Date Type Department Care Team (Late Contact Info) Description 10/25/2023 Abstract [facility] [place] [facility] 112 [facility] 110 [place] [phone] Rosy Cotton MD 112 [facility] 110 [place] [address] Social History Tobacco Use Types Packs/Day Years Used Date Smoking Tobacco: Never Smokeless Tobacco: Never Alcohol Use Standard Drinks/Week Comments Not Currently 0 (1 standard drink = 0.6 oz pur e alcohol) Caffeine Intake: Coffee PHQ-2 Answer Date Recorded Patient Health Questionnaire-2 Score 0 10/22/2023 Sex and Gender Information Value Date Recorded Sex Assigned at Not on file Legal Sex Male 6:53 PM EDT Gender Identity Not on file Sexual Orientation Not on file documented as of this encounter Plan of Treatment Upcoming Encounters Date Type Department Care Team (Late Contact Info) Description 07/20/2025 1:00 PM EST Office [facility] [place] [facility] [address] [facility] 110 [place] [phone] Rosy Cotton MD 112 [facility] 110 [place] [address] 09/29/2025 9:15 AM EST Office Visit [facility] [address] [place] [address] Dimitri Duenas DO [address] [place] [address] documented as of this encounter Visit Diagnoses Not on filedocumented in this encounter Care Teams Mat Packer Relationship Specialty Start Date End Date Rosy Cotton MD [address] [place] [address] PCP - [employer] 11/18/22 10/24/24 Rosy Cotton MD [address] [place] [address] PCP - General Family Medicine 03/19/23 Rosy Cotton MD [address] [place] [address] PCP - [employer] 08/20/23 Erick Barajas OD [address] [place] [address] Referring Physician Optometry 03/11/24 documented as of this encounter
--- OUTSIDE RECORDS SUMMARY | 2025-05-11 10:55 | XMS_ITS | Patient Health Record ---
Author Organization [facility] [place] Address [address] [place] [address] Care Team Providers Care Therapeutic Assistant Name Role Phone Rosy Cotton MD Primary Care Provider Unavailabl e Allergies No Known Allergies Reason For Referral No Information Medications Medication SIG (Take, Route, Frequency, Duration) Notes Start Date End Date Status hydroCHLOROthiazide Active Finasteride 5 MG 1 tablet Orally Once a day; Duration: 90 days 01/24/2024 Active [employer] COVID-19 Vacc 30 MCG/0.3ML as directed Intramuscular booster 07/2021 Not-Taking Januvia Not-Taking Finasteride 5 MG 1 tablet Orally Once a day; Duration: 30 days Not-Taking Toujeo Max SoloStar 300 UNIT/ML 50 UNITS SQ DAILY INCREASE BY 2 UNITS EVERY 3 DAYS SUBCUTANEOUS 30 DAYS Subcutaneous; Duration: 35 Days Active Simvastatin Active Rybelsus 14 MG TAKE ONE TABLET BY MOUTH ONCE DAILY 30 MINUTES BEFORE FIRST FOOD, BEVERAGE, OR OTHER ORAL MEDICATION OF THE DAY Oral; Duration: 30 Active Jardiance Active Irbesartan Active glipiZIDE Active amLODIPine Besylate Active Tamsulosin HCl 0.4 MG 1 capsule Orally Once a day; Duration: 30 days Not-Taking Social History Tobacco Use: Social History Observation Description Date Details (start date - stop date) Former Smoker NA - NA Tobacco Use/Smoking Question Answer Notes Patient is a former smoker When did you start smoking? 1979 When did you stop smoking? 2004 Alcohol Screen (Audit-C) Question Answer Notes Did you have a drink containing alcohol in the p ast year? No Points 0 Interpretation Negative Problems Problem Type SNOMED Code ICD Code Onset Dates Problem Status W/U Status Risk Notes Problem Erectile dysfunction co-occurrent and due to arterial insufficiency (disorder) (427621177097327) Erectile dysfunction due to arterial insufficiency (N52.01) Active confirmed Problem Lower urinary tract symptoms due to benign prostatic hypertrophy (42141281649409) Benign prostatic hyperplasia with lower urinary tract symptoms, symptom details unspecified (N40.1) Active confirmed Plan Of Treatment Pending Test Test Name Order Date COVID 19 SWAB RT-PCR (OPS ONLY) 10/27/19 21 Insurance Providers Payer Name Payer Address Payer Phone Subscriber Number Group Number Insured Name Patient Relationship to Insured Coverage Start Date Coverage End Date [employer] MEDICARE [address] [place], [place] [id number] Mahesh Gonzalez Self - patient is the insured 4 Medical (General) History Medical History History ICD Code diabetes hyperlipidemia hypertension Erectile dysfunction due to arterial ins ufficiency N52.01 Benign prostatic hyperplasia with lower urinary tract symptoms, symptom details unspecified N40.1 Surgical History Surgery Date(Month/Year) cholecystectomy Urolift 02/08/21
--- OUTSIDE RECORDS SUMMARY | 2025-05-11 10:55 | XMS_ITS | Encounter Summary ---
Author Organization [facility] Address [address] [facility] [place] [address] Care Team Providers Care Beater Machine Operator Name Role Phone Rosy Cotton MD Unavailable Rosy Cotton MD Primary Care Provider [phone] Rosy Cotton MD Unavailable Erick Barajas OD Unavailable Encounter Details Date Type Department Care Team (Late Contact Info) Description 07/10/2024 Abstract [facility] [place] [facility] 112 [facility] 110 [place] [phone] Rosy Cotton MD 112 [facility] 110 [place] [address] Social History Tobacco Use Types Packs/Day Years [...] PM EST Office Visit [facility] [place] [facility] 112 [facility] 110 [place] [phone] Rosy Cotton MD 112 [facility] 110 [place] [address] 09/29/2025 9:15 AM EST Office Visit [facility] [address] [place] [address] Dimitri Duenas DO [address] [place] [address] documented as of this encounter Visit Diagnoses Not on filedocumented in this encounter Care Teams Beater Machine Operator Relationship Specialty Start Date End Date Rosy Cotton MD [address] [place] [address] PCP - [employer] 11/18/22 10/24/24 Rosy Cotton MD [address] [place] [address] PCP - General Family Medicine 03/19/23 Rosy Cotton MD [address] [place] [address] PCP - [employer] 08/20/23 Erick Barajas OD [address] [place] [address] Referring Physician Optometry 03/11/24 documented as of this encounter
--- OUTSIDE RECORDS SUMMARY | 2025-05-11 10:55 | XMS_ITS | Encounter Summary ---
Author Organization [facility] Address [address] [place] [address] Care Team Providers Care Asp Net C Developer Name Role Phone Rosy Cotton MD Unavailable Rosy Cotton MD Primary Care Provider [phone] Sunday, Ximena SHERWOODN Unavailable [phone] Rosy Cotton MD Unavailable JennErick cárdenas VLADISLAV Unavailable Encounter Details Date Type Department Care Team (Late Contact Info) Description 09/12/2023 Abstract [facility] [place] Rodriguez 112 [facility] 110 [place] [address] Rosy Cotton MD [address] [facility] 110 [place], [place] [phone] Social History Tobacco Use Types Packs/Day Years Used Date Smoking Tobacco: Never Smokeless Tobacco: Never Alcohol Use Standard Drinks/Week Comments Not Currently 0 (1 standard drink = 0.6 oz pur e alcohol) Caffeine Intake: Coffee Sex and Gender Information Value Date Recorded Sex Assigned at Not on file Legal Sex Male 6:53 PM EDT Gender Identity Not on file Sexual Orientation Not on file documented as of this encounter Plan of Treatment Upcoming Encounters Date Type Department Care Team ([facility] Contact Info) Description 07/20/2025 1:00 PM EST Office Visit [facility] [place] Bolanos 112 [facility] 110 [place] [address] Rosy Cotton MD [address] [facility] 110 [place] [address] 09/29/2025 9:15 AM EST Office Visit [facility] [address] [place] [address] Dimitri Duenas DO [address] [place] [address] documented as of this encounter Visit Diagnoses Not on filedocumented in this encounter Care Teams Asp Net C Developer Relationship Specialty Start Date End Date Rosy Cotton MD [address] [place] [address] PCP - [employer] 11/18/22 10/24/24 Rosy Cotton MD [address] [place] [address] PCP - General Family Medicine 03/19/23 Rosy Cotton MD [address] [place] [address] PCP - [employer] 08/20/23SundayXimena LPN [address] [place] [address] Licensed Practical Nurse Family Medicine 09/14/2309/17 Erick Barajas OD [address] [place] [address] Referring Physician Optometry 03/11/24 documented as of this encounter
--- OUTSIDE RECORDS SUMMARY | 2025-05-11 10:55 | XMS_ITS | Clinical Summary ---
Author Organization [facility] Address [address] [place] [address] Care Team Providers Care Aoc Airspace Control Officer Name Role Phone Rosy Cotton MD Primary Care Provider [phone] Delroy Carey MD Unavailable [phone] Allergies No known active allergies Medications amLODIPine (Norvasc) 5 mg tablet Take 5 mg by mouth in the morning. 0 Active atorvastatin (Lipitor) 40 mg tablet Take 40 mg by mouth in the morning. 4 Active diclofenac (Voltaren) 75 mg EC tablet Take 75 mg by mouth if needed in the morning and at bedtime. 4 Active empagliflozin (Jardiance) 25 mg Take 25 mg by mouth in the morning. 4 Active finasteride (Proscar) 5 mg tablet Take 5 mg by mouth 1 (one) time each day at the same time. 0 Active hydroCHLOROthiaz adebayo (HYDRODiuril) 25 mg tablet Take 25 mg by mouth in the morning. 0 Active NovoLOG Flexpen U-100 Insulin 100 unit/mL (3 mL) injection pen Inject 12 Units under the skin every 12 (twelve) hours. 4 Active Toujeo Max U-300 SoloStar 300 unit/mL (3 mL) injection Inject 70 Units under the skin at bedtime. 4 Active irbesartan (Avapro) 150 mg tablet Take 150 mg by mouth in the morning. 4 Active BD Ultra-Fine Micro Pen Needle 32 gauge x 1/4 needle 4 Active Rybelsus 14 mg tablet TAKE ONE TABLET BY MOUTH ONCE DAILY 30 MINUTES BEFORE FIRST FOOD, BEVERAGE, OR OTHER ORAL MEDICATION OF THE DAY Oral for 30 4 Active sildenafil (Viagra) 100 mg tabletIndication s:erectile dysfunction Take 1 tablet (100 mg) by mouth if needed for erectile dysfunction. 10 tablet 11 4 Active tadalafil (Cialis) 5 mg tabletIndication s:Erectile dysfunction, unspecified erectile dysfunction type Take 1 tablet (5 mg) by mouth in the morning. 90 tablet 1 5 Active anastrozole (Arimidex) 1 mg chemo tabletIndication s:Hypogonadism male,Estradiol excess Take 1 tablet (1 mg total) by mouth in the morning 90 tablet 2 5 08/01/20 25 Active Active Problems Problem Noted Date Diagnosed Date Hypogonadism male 04/29/2024 Encounter for screening for malignant neoplasm o f prostate 04/29/2024 Recurrent UTI 03/25/2024 Benign prostatic hyperplasia with urinary hesita ncy 03/25/2024 Erectile dysfunction 03/25/2024 Encounters Date Type Department Care Team Description 04/13/2025 Telephone [facility] Urology [address] [place] [address] Zayra Price MA from Last 3 Months Social History Tobacco Use Types Packs/Day Years Used Date Smoking Tobacco: Former Cigarettes Q uit: 2004 Passive Smoke Exposure: Past Smokeless Tobacco: Never Tobacco Cessation:Counseling Given: Not Answered Alcohol Use Standard Drinks/Week Comments Never 0 (1 standard drink = 0.6 oz pur e alcohol) PHQ-2 Answer Date Recorded Patient Health Questionnaire-2 Score 0 11/04/2024 [place] Safety & Environment Answer Date Rec orded Fear of Current or Ex-Partner Not on file Emotionally Abused Not on file 02/11/2024 Physically Abused Not on file 02/11/2024 Sexually Abused Not on file 02/11/2024 Physically or Sexually Abused Not on file Sex and Gender Information Value Date Recorded Sex Assigned at Not on file Legal Sex Male 3:38 PM EDT Gender Identity Not on file Sexual Orientation Not on file Last Filed Vital Signs Vital Sign Reading Time Taken Comments Blood Pressure 125/74 11/04/2024 9:29 AM EDT Pulse 68 11/04/2024 9:29 AM EDT Temperature 36.8 C (98.2 F) 11/04/2024 9:29 AM EDT Respiratory Rate - - Oxygen Saturation - - Inhaled Oxygen Concentration - - Weight 118 kg (260 lb 9.6 oz) 11/04/2024 9:29 AM EDT Height 177.8 cm (5' 10 ) 11/04/2024 9:29 AM EDT Body Mass Index 37.39 11/04/2024 9:29 AM EDT Plan of Treatment Upcoming Encounters Date Type Department Care Team (Late st Contact Info) Description 05/19/2025 10:15 AM EDT Follow-Up [facility] Urology [address] [place] [phone] Ja Talavera, UNDER BASTER [address] [place] [address] Health Maintenance Due Date Last Done Comments CT Colonography 1957 Diabetes: Hemoglobin A1C 1957 FIT-DNA 1957 FIT 1957 FOBT 1955 Medicare Annual Wellness (AWV) 1957 Sigmoidoscopy 1957 Diabetes: Retinopathy Screening 11/25/1967 Adult Tetanus 11/25/1979 Pneumococcal Vaccine: 50+ Years (1 of 1 - PCV) 11/25/2007 Colonoscopy 05/15/2024 05/15/2014 Colorectal Cancer Screening 05/15/2024 COVID-19 Vaccine ( season) 2025 05/01/2024, 05/09/2023, 05/09/2022, Additional history exists Influenza Vaccine (#1) 2025 , 05/09/2023, 06/05/2022, Additional history exists Diabetes: Urine Protein Screening 07/22/2025 07/22/2024, 07/23/2023 Depression Screening 11/04/2025 11/04/2024 Fall Risk Screening 11/04/2025 11/04/2024 Zoster Vaccines Completed 01/23/2022, 08/30/2021 HIB Vaccines Aged Out No longer eligi ble based on patient's age to complete this topic HPV Vaccines Aged Out No longer eligi ble based on patient's age to complete this topic IPV Vaccines Aged Out No longer eligi ble based on patient's age to complete this topic Meningococcal B Vaccine Aged Out No l onger eligible based on patient's age to complete this topic Meningococcal Vaccine Aged Out No tammy erik eligible based on patient's age to complete this topic Rotavirus Vaccines Aged Out No longer eligible based on patient's age to complete this topic Insurance [employer] MEDICARE ADVANTAGE Care Teams Aoc Airspace Control Officer Relationship Specialty Start Date End Date Rosy Cotton MD [address] [place] [address] 110 [place] [address] PCP - General Internal Medicine 03/25/24 Delroy Carey MD [address] [place] [address] [address] [place] [phone] Consulting Physician Transplant Surgery 03/25/24
--- OUTSIDE RECORDS SUMMARY | 2025-05-11 10:55 | XMS_ITS | Encounter Summary ---
Author Organization [facility] Address [address] [place] [facility] [address] Care Team Providers Care Medical Assistant Instructor Name Role Phone Rosy Cotton MD Unavailable Rosy Cotton MD Primary Care Provider [phone] Rosy Cotton MD Unavailable Erick Barajas OD Unavailable Encounter Details Date Type Department Care Team (Late Contact Info) Description 07/16/2024 Abstract [facility] [place] [facility] 112 [facility] 110 [place] [phone] Rosy Cotton MD 112 [facility] 110 [place] [address] Social History Tobacco Use Types Packs/Day Years [...] PM EST Office Visit [facility] [place] [facility] 112 [facility] 110 [place] [phone] Rosy Cotton MD 112 [facility] 110 [place] [address] 09/29/2025 9:15 AM EST Office Visit [facility] [address] [place] [address] Dimitri Duenas DO [address] [place] [address] documented as of this encounter Visit Diagnoses Not on filedocumented in this encounter Care Teams Medical Assistant Instructor Relationship Specialty Start Date End Date Rosy Cotton MD [address] [place] [address] PCP - [employer] 11/18/22 10/24/24 Rosy Cotton MD [address] [place] [address] PCP - General Family Medicine 03/19/23 Rosy Cotton MD [address] [place] [address] PCP - [employer] 08/20/23 Erick Barajas OD [address] [place] [address] Referring Physician Optometry 03/11/24 documented as of this encounter
--- OUTSIDE RECORDS SUMMARY | 2025-05-11 10:55 | XMS_ITS | Encounter Summary ---
Author Organization [facility] Address [address] [place] [address] Care Team Providers Care Stock House Worker Name Role Phone Rosy Cotton MD Unavailable Rosy Cotton MD Primary Care Provider [phone] Rosy Cotton MD Unavailable Erick Barajas OD Unavailable Encounter Details Date Type Department Care Team (Late st Contact Info) Description 10/21/2024 Abstract [facility] [place] [facility] [address] [facility] [address] [place] [phone] Rosy Cotton MD 112 [facility] 110 [place], [place] [id number] Social History Tobacco Use Types Packs/Day Years Used Date Smoking Tobacco: Never Smokeless Tobacco: Never Alcohol Use Standard Drinks/Week Comments Not Currently 0 (1 standard drink = 0.6 oz pur e alcohol) Caffeine Intake: Coffee B1300 Health Literacy Answer Date Recor ded How often do you need to hav e someone help you when you read instructions, pamphlets, or other written material from your doctor or pharmacy? Never 07/21/2024 Social Connection and Isolat ion Panel [NHANES] Answer Date Recorded In a typical week, how many times do you talk on the phone with family, friends, or neighbors? More than three times a week 07/21/2024 How often do you get togethe r with friends or relatives? Three times a week 07/21/2024 How often do you attend [facility] or voodoo services? More than 4 times per year 07/21/2024 Do you belong to any clubs o r organizations such as druze groups, unions, fraternal or athletic groups, or school groups? Yes 07/21/2024 How often do you attend meet ings of the clubs or organizations you belong to? More than 4 times per year 07/21/2024 Are you , , di vorced, , never , or living with a partner? 07/21/2024 AUDIT-C Answer Date Recorded Q1: How often do you have a drink containing alcohol? Never 07/21/2024 Q2: How many drinks containi ng alcohol do you have on a typical day when you are drinking? Patient does not drink Q3: How often do you have si x or more drinks on one occasion? Never 07/21/2024 Overall Financial Resource Strain (CARDIA) Answe r Date Recorded How hard is it for you to pa y for the very basics like food, housing, medical care, and heating? Not hard at all 07/21/2024 PHQ-2 Answer Date Recorded Patient Health Questionnaire-2 Score 0 10/21/2024 [facility] - Occupational Stress Questionnaire Answer Date Recorded Do you feel stress - tense, restless, nervous, or anxious, or unable to sleep at night because your mind is troubled all the time - these days? Not at all 07/21/2024 Exercise Vital Sign Answer Date Recorde d On average, how many days pe r week do you engage in moderate to strenuous exercise (like a brisk walk)? 1 day 07/21/2024 On average, how many minutes do you engage in exercise at this level? 60 min 07/21/2024 Hunger Vital Sign Answer Date Recorded Within the past 12 months, y ou worried that your food would run out before you got the money to buy more. Never true 07/21/20 24 Within the past 12 months, t he food you bought just didn't last and you didn't have money to get more. Never true 07/21/2024 PRAPARE - Transportation Answer Date Re corded In the past 12 months, has l ack of transportation kept you from medical appointments or from getting medications? No 09/2023 In the past 12 months, has l ack of transportation kept you from meetings, work, or from getting things needed for daily living? No 07/21/2024 Housing Stability Vital Sign Answer Edgar e Recorded In the last 12 months, was t here a time when you were not able to pay the mortgage or rent on time? No 07/21/2024 In the past 12 months, how m any times have you moved where you were living? 0 07/21/2024 At any time in the past 12 m [facility], were you homeless or living in a mcc (including now)? No 07/21/2024 Sex and Gender Information Value Date Recorded Sex Assigned at Not on file Legal Sex Male 6:53 PM EDT Gender Identity Not on file Sexual Orientation Not on file documented as of this encounter Functional Status * Over the past 2 weeks, how often have you been bothered by any of the following problems? Question Answer Date of Assessment Author Little interest or pleasure in doing things Not at all 10/21/2024 1:00 PM EST Nazanin Tesfaye MA Feeling down, depressed, or hopeless Not at all 10/21/2024 1:00 PM EST Nazanin Tesfaye MA Patient Health Questionnaire -2 Score 0 10/21/2024 1:00 PM EST Nazanin Tesfaye MA documented as of this encounter Plan of Treatment Upcoming Encounters Date Type Department Care Team (Late st Contact Info) Description 07/20/2025 1:00 PM EST Office Visit [facility] [place] [facility] [address] [facility] [address] [place] [address] Rosy Cotton MD [address] [facility] 110 [place] [address] 09/29/2025 9:15 AM EST Office Visit [facility] [address] [place] [address] Dimitri Duenas DO [address] [place] [address] documented as of this encounter Visit Diagnoses Not on filedocumented in this encounter Care Teams Stock House Worker Relationship Specialty Start Date End Date Rosy Cotton MD [address] [facility] [address] [place] [address] PCP - [employer] 11/18/22 10/24/24 Rosy Cotton MD [address] [facility] 110 [place] [address] PCP - General Family Medicine 03/19/23 Rosy Cotton MD [address] [facility] [address] [place] [address] PCP - [employer] 08/20/23 Erick Barajas OD [address] [place] [id number] Referring Physician Optometry 03/11/24 documented as of this encounter
--- OUTSIDE RECORDS SUMMARY | 2025-05-11 10:55 | XMS_ITS | Encounter Summary ---
Author Organization [facility] Address [address] [facility] [place] [address] Care Team Providers Care News Copy Editor Name Role Phone Rosy Cotton MD Unavailable Rosy Cotton MD Primary Care Provider [phone] Rosy Cotton MD Unavailable Erick Barajas OD Unavailable Encounter Details Date Type Department Care Team (Late Contact Info) Description 01/30/2024 Abstract [facility] [place] [facility] 112 [facility] 110 [place] [phone] Rosy Cotton MD 112 [facility] 110 [place] [address] Social History Tobacco Use Types Packs/Day Years [...] EST Office Visit [facility] [place] [facility] 112 [facility] 110 [place] [phone] Rosy Cotton MD 112 [facility] 110 [place] [address] 09/29/2025 9:15 AM EST Office Visit [facility] [address] [place] [address] Dimitri Deunas DO [address] [place] [address] documented as of this encounter Visit Diagnoses Not on filedocumented in this encounter Care Teams News Copy Editor Relationship Specialty Start Date End Date Rosy Cotton MD [address] [place] [address] PCP - [employer] 11/18/22 10/24/24 Rosy Cotton MD [address] [place] [address] PCP - General Family Medicine 03/19/23 Rosy Cotton MD [address] [place] [address] PCP - [employer] 08/20/23 Erick Barajas OD [address] [place] [id number] Referring Physician Optometry 03/11/24 documented as of this encounter
--- OUTSIDE RECORDS SUMMARY | 2025-05-11 10:55 | XMS_ITS | Encounter Summary ---
Author Organization [facility] Address [address] [place] [facility] [place] [address] Care Team Providers Care Predictive Maintenance Technician Name Role Phone Rosy Cotton MD Unavailable Rosy Cotton MD Primary Care Provider [phone] Rosy Cotton MD Unavailable Erick Barajas OD Unavailable Encounter Details Date Type Department Care Team (Late Contact Info) Description 09/18/2023 Abstract [facility] [place] [facility] 112 [facility] 110 [place] [phone] Rosy Cotton MD 112 [facility] 110 [place], [place] [phone] Social History Tobacco Use Types Packs/Day Years [...] 1:00 PM EST Office Visit [facility] 112 [facility] 110 [place] [phone] Rosy Cotton MD 112 [facility] 110 [place], [place] [id number] 09/29/2025 9:15 AM EST Office Visit [facility] [address] [place] [address] Dimitri Duenas, DO [address] [place] [address] documented as of this encounter Visit Diagnoses Not on filedocumented in this encounter Care Teams Predictive Maintenance Technician Relationship Specialty Start Date End Date Rosy Cotton MD [address] [place] [address] PCP - [employer] 11/18/22 10/24/24 Rosy Cotton MD [address] [facility] 110 [place] [address] PCP - General Family Medicine 03/19/23 Rosy Cotton MD [address] [facility] [address] [place] [address] PCP - [employer] 08/20/23 Erick Barajas OD [address] [place] [id number] Referring Physician Optometry 03/11/24 documented as of this encounter
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
--- OUTSIDE RECORDS SUMMARY | 2025-05-11 10:55 | XMS_ITS | Encounter Summary ---
Author Organization [facility] Address [address] [facility] [place] [address] Care Team Providers Care Finished Goods Inspector Name Role Phone Rosy Cotton MD Primary Care Provider [phone] Rosy Cotton MD Unavailable Erick Barajas OD Unavailable Encounter Details Date Type Department Care Team (Late st Contact Info) Description 12/18/2024 Abstract [facility] [place] [facility] [address] [facility] [address] [place] [address] Rosy Cotton MD 112 [facility] [address] [place] [address] Social History Tobacco Use Types Packs/Day Years [...] How often do you attend chur or buddhism services? More than 4 times per year 07/21/2024 Do you belong to any clubs o r organizations such as zoroastrian groups, unions, fraternal or athletic groups, or [...] Date Recorded Patient Health Questionnaire-2 Score 0 12/16/2024 [facility] - Occupational Stress Questionnaire Answer Date Recorded [...] were you homeless or living in a nursing home (including now)? No 07/21/2024 Sex and Gender Information Value Date Recorded Sex Assigned at Not on file Legal Sex Male 6:53 PM EDT Gender Identity Not on file Sexual Orientation Not on file documented as of this encounter Plan of Treatment Upcoming Encounters Date Type Department Care Team (Late st Contact Info) Description 07/20/2025 1:00 PM EST [facility] [place] [facility] [address] [facility] [address] [place] [address] Rosy Cotton MD [address] [facility] [address] [place] [address] 09/29/2025 9:15 AM EST Office Visit [facility] [address] [place] [address] Dimitri Duenas DO [address] [place] [address] documented as of this encounter Visit Diagnoses Not on filedocumented in this encounter Care Teams Finished Goods Inspector Relationship Specialty Start Date End Date Rosy Cotton MD [address] [facility] [address] [place] [address] PCP - General Family Medicine 03/19/23 Rosy Cotton MD [address] [facility] [address] [place] [address] PCP - [employer] 08/20/23 Erick Barajas OD [address] [place] [id number] Referring Physician Optometry 03/11/24 documented as of this encounter
--- OUTSIDE RECORDS SUMMARY | 2025-05-11 10:58 | XMS_ITS | CCD ---
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 Images reviewed and comparison made to baseline, Images reviewed. To assess optic nerve function and for use in future follow-up. Reliability: good and adequate. 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 Stable. [facility] Radiology Study observation (narrative) [facility] Follow-Upon 07-29-2024 Follow-Up [id number] Mahesh Gonzalez 1955 M Date Provider Department Center 07/29/2024 [facility] URO Second Fl No family history on file Level of Service:90089 MT OFFICE/OUTPATIENT ESTABLISHED MOD MDM 30 MIN Reason for Visit and Comments: Benign Prostatic Hypertrophy [[id number]] Hypogonadism [185] - 3 mo follow-up with labs Normal [facility] ALBUMIN, RANDOM URINE W/CREA TININEon 07-23-2024 ALBUMIN, URINE 4.7 mg/dL Normal See Note: [facility] Comment on above: Order Comment: FASTI NG:UNKNOWN FASTING: UNKNOWN Result Comment: Refe rence Range: Reference Range Not established Performed By: #### 6 517 #### [facility] [address], [address] [place] [address] Inbound Sales Representative: Pierre Smith MD ALBUMIN/CREATININE RATIO, RANDOM URINE 70 mg/g creat High <30 [facility] Comment on above: Order Comment: FASTI NG:UNKNOWN FASTING: UNKNOWN Result Comment: The ADA defines abnormalities in albumin excretion as follows: Albuminuria Category Result (mg/g creatinine) Normal to Mildly increased <30 Moderately increased 30-299 Severely increased > OR = 300 The ADA recommends that at least two of three specimens collected within a 3-6 month period be abnormal before considering a patient to be within a diagnostic category. Performed By: #### 6 517 #### [facility] [address], [address] [place] [address] Inbound Sales Representative: Pierre Smith MD Creatinine (U) [Mass/Vol] 67 mg/dL Normal 20-320 [facility] Comment on above: Order Comment: FASTI NG:UNKNOWN FASTING: UNKNOWN Performed By: #### 6 517 #### [facility] [address], [address] Inbound Sales Representative: Pierre Smith MD Orders Onlyon 07-16-2024 Orders Only [id number] Mahesh Gonzalez 1955 M Date Provider Department Center 07/16/[address] [place] [address] URO Second Fl No family history on file Normal [facility] Orders Onlyon 07-11-2024 Orders Only [id number] Mahesh Gonzalez 1955 M Date Provider Department Center 07/11/[address] [place] [address] URO Second Fl No family history on file Normal [facility] Glucose Glucometer (BldC) [M ass/Vol]Ordered By: Salinas Philip on 07-10-2024 Glucose [Mass/Vol] Capillary blood glucose measurement by glucometer (mass/volume) [facility] Comment on above: Random Glucose Refer ence Range is dependent on time and content of last meal. Glucose of more than 200 mg/dL in a nonstressed, ambulatory subject supports the diagnosis of Diabetes Mellitus. Glucose Poct Glucometerson 1 09-09-2023 Commemt1 Glu2: Cleaned Meter Normal [facility] Comment on above: Result Comment: PERF ORMED BY: [facility] [address] [place] [address] PATHOLOGIST ORDNANCE OFFICER CONRADO ESPITIA M.D. Performed By: #### G LULS #### Point of Care testing , Glucose [Mass/Vol] 80 mg/dL Normal [facility] Comment on above: Result Comment: [place] Glucose Reference Range is dependent on time and content of last meal. Glucose of more than 200 mg/dL in a nonstressed, ambulatory subject supports the diagnosis of Diabetes Mellitus. Performed By: #### G RADHA #### Point of Care testing , Jacinto 07-10-2024 L Specimen: [id number] Received: 07/10/24 Status: DOV Stuart Num: [id number] Spec Type: Surgical Subm Dr: Salinas Philip MD Tissues: A Colon Biopsy (DESCENDING COLON POLYPS) B Colon Biopsy (CECUM POLYP) Procedures: Kathleen ARECHIGA/Amanda L4/2 Age/ Patient Sex Location Account Attending Physician Mahesh Gonzalez JR 68/M [id number] Salinas Philip MD SPEC NUM: [id number] RECD: 07/10/24 STATUS: DOV STUART NUM: [id number] ALFREDO: 07/10/24- [facility] DR: Salinas Philip MD ENTERED: 07/10/[address] [facility] [address]: SPEC TYPE: Surgical DEPT: S ENTERED BY: [id number] RECV BY: [id number] ORDERED: HE/4, Gross/Micro L4/2 ORDERED: HE/4, Gross/Micro [...] submitted in a single cassette. (1, ns, V79-6000 A) J Part B is received in formalin labeled with the patients name, date of , and cecum polyp is a park-fre[place], focally erythematous, friable, 0.7 cm in greatest dimension polypoid fragment. The specimen is entirely submitted in a single cassette. (1, ns, [id number] B) JG Specimen: [id number] Received: 07/10/24 Status: DOV Stuart Num: [id number] Spec Type: Surgical Subm Dr: Salinas Philip MD Tissues: A Colon Biopsy (DESCENDING COLON POLYPS) B Colon Biopsy (CECUM POLYP) Procedures: HE/4, Gross/Micro L4/2 Patient: Mahesh Gonzalez JR [id number] (Continued) Specimen: [id number] Received: 07/10/24 (Continued) Signed (signature on file) Vick Desai MD 07/15/241452 Specimen: [id number] Received: 07/10/24 Status: DOV Stuart Num: [id number] Spec Type: Surgical Subm Dr: Salinas Philip MD Tissues: A Colon Biopsy (DESCENDING COLON POLYPS) B Colon Biopsy (CECUM POLYP) Procedures: YASMANY/Jesus, Gross/Micro L4/2 Patient: Dwight Gonzalezclarice SANABRIA [id number] (Continued) Specimen: [id number] Received: 07/10/24 (Continued) Microscopic Description Microscopic examinations are performed supporting the above interpretation CPT Codes 28852 X2 Specimen: [id number] Received: 07/10/24 Status: DOV Stuart Num: [id number] Spec Type: Surgical Subm Dr: Salinas Philip MD Tissues: A Colon Biopsy (DESCENDING COLON POLYPS) B Colon Biopsy (CECUM POLYP) Procedures: HE/4, Gross/Micro L4/2 Patient: GonzalezMahesh otero [id number] (Continued) Signed (signature on file) Vick Desai MD 07/15/24 1453 Normal [facility] No Panel InformationOrdered By: Salinas Philip on 07-10-2024 Bedside Glucose Comment Glu2: cleaned meter [facility] METRO SEX BINDING HORMONE (S HBG), TESTOSTERONE, FREE AND BIOAVAILABLEon 07-08-2024 SEX HORM BINDING GLOB, SERUM 30.5 nmol/L 19.3 - 76.4 nmol/L [facility] Comment on above: Performed at: [address] [id number] Computer Instructor: Ritchie Albright PhD, Phone: [phone] [facility] Orders Onlyon 07-08-2024 Orders Only [id number] Mahesh Gonzalez 1955 M Date Provider Department Center 07/08/[address] [place] [address] URO Second Fl No family history on file Normal [facility] ALL CBC WITH AUTO DIFFon BASOPHILS ABSOLUTE AUTO 0.1 [facility] Basophils/100 WBC (Bld) 0.8 % 0.2 - 2.0 % [facility] Eosinophils/100 WBC (Bld) 4.9 % 0.9 - 7.0 % [facility] Erythrocyte distribution width (RBC) [Ratio] 14.1 % 11.0 - 15.0 % [facility] Hematocrit (Bld) [Volume fraction] 47.9 % 42.0 - 54.0 % [facility] Hemoglobin (Bld) [Mass/Vol] 16.1 g/dL 14.0 - 18.0 g/dL [facility] IMMATURE GRANULOCYTES ABS AUTO 0.01 [facility] Immature granulocytes/100 WBC (Bld) 0.1 % 0.0 - 0.5 % [facility] Interpretation and review of laboratory results Abnormal [facility] LYMPHOCYTES ABSOLUTE AUTO 2.2 [facility] Lymphocytes/100 WBC (Bld) 29.9 % 20.5 - 60.0 % [facility] MCH (RBC) [Entitic mass] 27.9 pg 25.9 - 34.0 pg [facility] MCHC (RBC) [Mass/Vol] 33.6 g/dL 29.9 - 35.2 g/dL [facility] MCV (RBC) [Entitic vol] 83 fL 80.0 - 94.0 fL [facility] MONOCYTES ABSOLUTE AUTO 0.5 [facility] Monocytes/100 WBC (Bld) 7 % 1.7 - 12.0 % [facility] NEUTROPHILS ABSOLUTE AUTO 4.2 [facility] Neutrophils/100 WBC (Bld) 57.3 % 43.0 - 75.0 % [facility] Platelet mean volume (Bld) [Entitic vol] 9 fL Low 9.5 - 13.5 fL [facility]H EO # 0.4 [facility] PLT [address] [facility] RBC 5.77 [facility] WBC 7.3 [facility] CMP (CMP) (FOR REMOTE FH C USE)on 07-07-2024 Albumin [Mass/Vol] 3.7 g/dL 3.4 - 5.0 g/dL [facility] ALBUMIN GLOBULIN RATIO 1 [facility] ALP [Catalytic activity/Vol] 102 U/L 46 - 116 U/L [facility] ALT [Catalytic activity/Vol] 48 U/L 16 - 63 U/L [facility] Anion gap [Moles/Vol] 14.6 mmol/L NO [facility] AST [Catalytic activity/Vol] 30 U/L 15 - 37 U/L [facility] Bilirubin [Mass/Vol] 0.8 mg/dL 0.2 - 1 .0 mg/dL [facility] Calcium [Mass/Vol] 9 mg/dL 8.5 - 10. 1 mg/dL [facility] Chloride [Moles/Vol] 105 mmol/L 98 - 10 7 mmol/L [facility] CO2 [Moles/Vol] 26.2 mmol/L 21.0 - 32.0 mmol/L [facility] Creatinine [Mass/Vol] 1 mg/dL 0.70 - 1.30 mg/dL [facility] GFR/1.73 sq M.predicted CKD-EPI (S/P/Bld) [Vol rate/Area] >60 >=60 mL/min/1.73m 2 [facility] Globulin (S) [Mass/Vol] 3.7 g/dL [facility] Glucose [Mass/Vol] 126 mg/dL High 74 - 106 mg/dL [facility] Interpretation and review of laboratory results Abnormal [facility] Potassium [Moles/Vol] 3.8 mmol/L 3.5 - 5.1 mmol/L [facility] Protein [Mass/Vol] 7.4 g/dL 6.4 - 8.2 g/dL [facility] Sodium [Moles/Vol] 142 mmol/L 136 - 145 mmol/L [facility]H EGFR-NON AF IRANIAN >60 >=60 mL/min/1.73m 2 [facility] Urea nitrogen [Mass/Vol] 13 mg/dL 7.0 - 18.0 mg/dL [facility] Urea nitrogen/Creatinine [Mass ratio] 13 mg/mg [facility] Laboratory - Hematology and Cell countson 05-20-2024 HbA1c (Bld) [Mass fraction] 7.1 % [facility] No Panel Informationon 05-20 Interpretation and review of laboratory results Abnormal [facility] Follow-Upon 04-29-2024 Follow-Up [id number] Mahesh Gonzalez 1955 M Date Provider Department Center 04/29/2024 [address] [facility] URO Second Fl No family history on file Level of Service:06448 MT OFFICE/OUTPATIENT ESTABLISHED MOD MDM 30 MIN Reason for Visit and Comments: Hypogonadism [185] - 4 wk follow-up with labs Normal [facility] Complete Blood Count with Au to Diffon 09-06-2021 Basophils (Bld) [#/Vol] 0.05 10*3/uL Normal 0.00-0.20 [facility] Comment on above: Performed By: #### C MP, LIPD, CBCAD #### [facility] [address] [place] [id number] Basophils/100 WBC (Bld) 0.8 % Normal [facility] Comment on above: Performed By: #### C MP, LIPD, CBCAD #### [facility] [address] [place], [place] [id number] Eosinophils (Bld) [#/Vol] 0.30 10*3/uL Normal 0.02-0.50 [facility] Comment on above: Performed By: #### C MP, LIPD, CBCAD #### [facility] [address] [place], [place] [id number] Eosinophils/100 WBC (Bld) 4.7 % Normal [facility] Comment on above: Performed By: #### C MP, LIPD, CBCAD #### [facility] [address] [place], [place] [id number] Erythrocyte distribution width (RBC) [Ratio] 13.2 % Normal 11.0-15.0 [facility] Comment on above: Performed By: #### C MP, LIPD, CBCAD #### [facility] [address] [place], [place] [id number] Hematocrit (Bld) [Volume fraction] 46.7 % Normal 38.5-50.0 [facility] Comment on above: Performed By: #### C MP, LIPD, CBCAD #### [facility] [address] [place], [place] [id number] Hemoglobin (Bld) [Mass/Vol] 15.7 g/dL Normal 13.0-17.1 [facility] Comment on above: Performed By: #### C MP, LIPD, CBCAD #### [facility] [address] [place], [place] [id number] Lymphocytes (Bld) [#/Vol] 1.6 10*3/uL Normal 0.9-3.9 [facility] Comment on above: Performed By: #### C MP, LIPD, CBCAD #### [facility] [address] [place], [place] [id number] Lymphocytes/100 WBC (Bld) 25.7 % Normal [facility] Comment on above: Performed By: #### C MP, LIPD, CBCAD #### [facility] [address] [place], [place] [id number] MCH (RBC) [Entitic mass] 27.7 pg Normal 27.0-33.0 [facility] Comment on above: Performed By: #### C DEBBIE KIDD, CBCAD #### [facility] [address] [place], [place] [id number] MCHC (RBC) [Mass/Vol] 33.6 g/dL Normal 32.0-36.0 [facility] Comment on above: Performed By: #### C DEBBIE KIDD, CBCAD #### [facility] [address] [place], [place] [id number] MCV (RBC) [Entitic vol] 82 fL Normal 80-100 [facility] Comment on above: Performed By: #### C DEBBIE KIDD, CBCAD #### [facility] [address] [place], [place] [id number] Monocytes (Bld) [#/Vol] 0.4 10*3/uL Normal 0.2-0.9 [facility] Comment on above: Performed By: #### C DEBBIE KIDD, CBCAD #### [facility] [address] [place], [place] [id number] Monocytes/100 WBC (Bld) 6.8 % Normal [facility] Comment on above: Performed By: #### C DEBBIE KIDD, CBCAD #### [facility] [address] [place], [place] [id number] Neutrophils (Bld) [#/Vol] 3.9 10*3/uL Normal 1.5-7.8 [facility] Comment on above: Performed By: #### C DEBBIE KIDD, CBCAD #### [facility] [address] [place], [place] [id number] Neutrophils/100 WBC (Bld) 61.7 % Normal [facility] Comment on above: Performed By: #### C DEBBIE KIDD, CBCAD #### [facility] [address] [place], [place] [id number] Platelet mean volume (Bld) [Entitic vol] 8.90 fL Normal 7.50-12.50 [facility] Comment on above: Performed By: #### C PABLO KIDDD, CBCAD #### [facility] [address] [place], [place] [id number] Platelets (Bld) [#/Vol] 227 10*3/uL Normal 140-400 [facility] Comment on above: Performed By: #### C MP, LIPD, CBCAD #### [facility] [address] [place], [place] [id number] RBC (Bld) [#/Vol] 5.67 10*6/uL Normal 4.20-5.80 [facility] Comment on above: Performed By: #### C MP, LIPD, CBCAD #### [facility] [address] [place], [place] [id number] RDW-SD 39.6 fL Normal 37.0-50.0 [facility] Comment on above: Performed By: #### C MP, LIPD, CBCAD #### [facility] [address] [place], [place] [id number] WBC (Bld) [#/Vol] 6.4 10*3/uL Normal 3.8-11.0 [facility] Comment on above: Performed By: #### C MP, LIPD, CBCAD #### [facility] [address] [place], [place] [id number] Comprehensive Metabolic Pane [facility] 09-06-2021 Albumin [Mass/Vol] 4.5 g/dL Normal 3.6-5.1 [facility] Specialist Comment on above: Performed By: #### C MP, LIPD, CBCAD #### [facility] [address] [place], [place] [id number] Albumin/Globulin [Mass ratio] 2.0 {ratio} Normal 1.0-2.5 [facility] Comment on above: Performed By: #### C MP, LIPD, CBCAD #### [facility] [address] [place], [place] [id number] ALP [Catalytic activity/Vol] 94 U/L Normal 40-129 [facility] Comment on above: Performed By: #### C MP, LIPD, CBCAD #### [facility] [address] [place], [place] [id number] ALT [Catalytic activity/Vol] 53 U/L High 9-46 [facility] Comment on above: Result Comment: 07/20 Female reference range changed. Performed By: #### C MP, LIPD, CBCAD #### [facility] [address] [place], [place] [id number] Anion gap [Moles/Vol] 17 mmol/L Normal 12-20 [facility] Comment on above: Result Comment: Effe ctive 08/25/2019 reference range changed. Performed By: #### C MP, LIPD, CBCAD #### [facility] [address] [place], [place] [id number] AST [Catalytic activity/Vol] 58 U/L High 10-40 [facility] Comment on above: Performed By: #### C MP, LIPD, CBCAD #### [facility] [address] [place], [place] [id number] Bilirubin [Mass/Vol] 0.62 mg/dL Normal 0.30-1.20 [facility] Comment on above: Performed By: #### C MP, LIPD, CBCAD #### [facility] [address] [place], [place] [id number] BUN/CREA 22 Ratio Normal 6-22 [facility] Comment on above: Performed By: #### C BERNABE, LIPD, CBCAD #### [facility] [address] [place], [place] [id number] Calcium [Mass/Vol] 9.5 mg/dL Normal 8.6-10.2 [facility] Comment on above: Performed By: #### C MP, LIPD, CBCAD #### [facility] [address] [place], [place] [id number] Chloride [Moles/Vol] 103 mmol/L Normal 98-107 [facility] Comment on above: Performed By: #### C MP, LIPD, CBCAD #### [facility] [address] [place], [place] [id number] CO2 [Moles/Vol] 24 mmol/L Normal 20-31 [facility] Comment on above: Performed By: #### C MP, LIPD, CBCAD #### [facility] [address] [place], [place] [id number] Creatinine [Mass/Vol] 0.7 mg/dL Normal 0.7-1.4 [facility] Specialist Comment on above: Performed By: #### C DEBBIE KIDD, CBCAD #### [facility] [address] [place], [place] [id number] eGFRAA 136 mL/min/1.73m2 Normal >60 [facility] Comment on above: Performed By: #### C BERNABE LIPD, CBCAD #### [facility] [address] [place], [place] [id number] eGFRNAA 112 mL/min/1.73m2 Normal >60 [facility] Comment on above: Performed By: #### C DEBBIE KIDD, CBCAD #### [facility] [address] [place], [place] [id number] Globulin (S) [Mass/Vol] 2.3 g/dL Normal 1.9-3.7 [facility] Comment on above: Performed By: #### C PABLO KIDDD, CBCAD #### [facility] [address] [place], [place] [id number] Glucose [Mass/Vol] 219 mg/dL High 65-99 [facility] Comment on above: Result Comment: For FASTING Glucose --- ADA reference ranges: Normal 65-99 mg/dl Prediabetes 100-125 Diabetes >/= 126 Performed By: #### C BERNABE, LIPD, CBCAD #### [facility] [address] [place], [place] [id number] Potassium [Moles/Vol] 3.9 mmol/L Normal 3.5-5.5 [facility] Comment on above: Performed By: #### C BERNABE, LIPD, CBCAD #### [facility] [address] [place], [place] [id number] Protein [Mass/Vol] 6.8 g/dL Normal 6.1-8.1 [facility] Comment on above: Performed By: #### C BERNABE, LIPD, CBCAD #### [facility] [address] [place], [place] [id number] Sodium [Moles/Vol] 140 mmol/L Normal 135-146 [facility] Comment on above: Performed By: #### C MP, LIPD, CBCAD #### [facility] [address] [place], [place] [id number] Urea nitrogen [Mass/Vol] 16 mg/dL Normal 7-25 [facility] Comment on above: Performed By: #### C MP, LIPD, CBCAD #### [facility] [address] [place], [place] [id number] Lipid Panelon 09-06-2021 Cholesterol [Mass/Vol] 116 mg/dL Low 125-200 [facility] Comment on above: Result Comment: Low risk < 200mg/dL Borderline risk 201-239 mg/dl High risk > or equal to 240 Performed By: #### C MP, LIPD, CBCAD #### [facility] [address] [place], [place] [id number] Cholesterol in HDL [Mass/Vol] 33 mg/dL Low >40 [facility] Comment on above: Result Comment: High Cardiovascular Risk HDL <40 mg/dL Low Cardiovascular Risk HDL > or equal to 60 mg/dl Performed By: #### C MP, LIPD, CBCAD #### [facility] [address] [place], [place] [id number] Cholesterol in LDL [Mass/Vol] 32 mg/dL Normal [facility] Comment on above: Result Comment: LDL ATP III CLASSIFICATION LDL less than 100 mg/dl Optimal LDL 100-129 mg/dl Near or above optimal LDL 130-159 Borderline high LDL 160-189 High LDL greater than 189 mg/dl Very High Performed By: #### C MP, LIPD, CBCAD #### [facility] [address] [place], [place] [id number] Cholesterol in VLDL [Mass/Vol] 51 mg/dL Normal [facility] Comment on above: Performed By: #### C MP, LIPD, CBCAD #### [facility] [address] [place], [place] [id number] Cholesterol.total/Chol esterol in HDL [Mass ratio] 4 {ratio} Normal [facility] Comment on above: Performed By: #### C MP, LIPD, CBCAD #### [facility] [address] [place], [place] [id number] Triglyceride [Mass/Vol] 253 mg/dL High 30-150 [facility] Comment on above: Result Comment: TRIG ATPIII CLASSIFICATIONS TRIG less than 150 mg/dl Normal TRIG 150-199 mg/dl Borderline High TRIG 200-500 mg/dl High TRIG greather than 500 mg/dl Very High Performed By: #### C MP, LIPD, CBCAD #### [facility] [address] [place], [place] [id number] Microalbumin (with Creat)on 09-06-2021 mALB 4.7 mg/dL Normal [facility] Comment on above: Result Comment: mALB reference range not established. Performed By: #### m ALBC #### [facility] [address] [place], [place] [id number] mALB/Creat Ratio 19.0 MCG/MG Normal [facility] Comment on above: Result Comment: The ADA (Diabetes Care 26:S94-S98, 2002) defines abnormalities in Albumin excretion as follows: Category Result (MCG/MG Creatinine) Normal <30 Microalbuminuria 30-299 Clinical Albuminuria > or = 300 Performed By: #### m ALBC #### [facility] [address] [place], [place] [id number] UCREA 248 mg/dL Normal 39-259 [facility] Comment on above: Performed By: #### m ALBC #### [facility] [address] [place], [place] [id number] Prostatic Specific Antigen, Totalon 09-06-2021 PSA, TOTAL 0.28 ng/mL Normal < OR = 4.00 [facility] Comment on above: Order Comment: [facility] performed at: QPT, [facility], [address] [place] [address], [address] [place] [address], [address], Glue Machine Operator: Pierre Smith MD [facility] Collection Date/Time: [id number] [facility] Results Received Date/Time: [facility] Reported Date/Time: Result Comment: The total PSA value from [...] P SA #### [facility] Default [address] [place] [address] Consent Formson 02-11-2021 Consent Forms [id number] [facility]-10-2021 Provider Orders [id number] #[facility] [id number] #1.00[facility] Coding Summaryon 02-09-2021 Coding Summary HTMLBase 64 VhlyknwbAYh2hRt+PGhl YWQ+XX8IHFIzE64lwGFf vZ2DC0yKWR4QLFYZRRUD PI3DJE7uhFP1AUlpZ8Ph biAv JozriUQiAR07YDd5DCA3 yBwiVHgfoK4fjSQnK0w1 KpIsVU93lJ38AMxeYTRn BcV5FgErllaptOAp T1umQqZhjFYgRrb+PHRh YmxlIHdpZHRoPScxMDAl YtRshNrkUR1pQj3tDPLr LWNvbGxhcHNlOiBj p5uoBEYkGDpoJH2cjCyr W5JptZI0MITdm1c7Bc93 dHI+CUWlOVB5sVxyFHyd a723LlZif6icGAN6 zHBsWSxsGVF8E03fa6O6 EUNlFOYcDZN2yKL7oN7z pDjpckrgG4PwoCEoFrO4 NNY1wNHrmM8mwJxr pwjusS2tXlk+J41UOR6V GQRBUJ4BLcc3X8JtVlfu dHI+XU00IPYdJQ18aJPk eBQmh2vkkBg9XnHq EKEwZIC7hKarFKkat6Vx UDYxO83boSGvd4A2YXVp mXujtHFkHzOwkCY0pY5t ECtdvxsmv6xhfyte Uuyrb4rpts63jD72U58t QDpkUZEtSBC7OSRiOSMr uHfytl3znW7wWt1+IDxj g5xfc4tetBb8BfOs WIJluyKfqZmrEPU1a0Js Wo85H9YvzZmln8CbWuk4 vz19gIMcw2F6jWL0TAdc CINctZ6vVEjqLuW3 TRVxVxZucH50uDOtVZgr Rq3ogXkqnTooOQ8bOVHs hpnjLCNqiJ6jXIZxxOBb uYmfRQ6tNVEwvyjf t657UqOiASM6KWRnlNHz A9KocE3bKgKdSZMuLRIh Z1HitPQlCQnfI058QEnz RuH1RNBtjsZnA1Vs MCYxkCifMiT1t2N1Ri3N l1GycjqoNML1YSqfRCW1 WqShLiUoSjW1Y5FvWcp5 MUEwfYpcAQ8aP1Vj SUOzozdbqbfstAC7MTEy ZGDusD45eSLgCLqrMx3e b0G0z415BVHnOTXjuH49 Cc0usWysEZYywHOC dL2kxwbtx1zkwmhzPhBp EOUaINu1WOh7QMHkoNop GkNzOBU4UoW9ESE2fNRu zB4jnYdmzksgxA2q Oyc+X85nnV4ySZR6SMR5 wzstNOOazoBcRP17LH40 O8PrZqqtnHKrzGV+PGRp wlJskWniDL7kGaBc e5jos4XcHSvaS1TsTAVw AYsuYnb8SZBdDPP3hXL4 zD5fDXUfCIkey2C0zYT3 G6SeubPvdz5mf4za BVFaOGlbN06wdDPyh6C2 TWGcvLR5VHElnTgnZwBt iR81Lnd+XOGtiLrhl6Jh Echqx2yxu6brrNl9 IjMwJSIgdmFsaWduPSJ0 j2DmBl56F25iFXxtPRGm XNTiYYDiHZVkrAivve1w hM5uMi2+PGNvbCB3 bWU5aZ5gNFClNmT5XAkm M052RdDelEGeSmyrj9dd o9qaoMk5NqApSQFzhxEq cZydOWK6q6KzRa26 E30sQPdsSMHvQQDgYBAe UZPezBwhos2scQ9xZj7+ FT4rg2iclm14xH31tJJ+ AZAlLZT9hObaNKjp KMUobY7gECyhUbR3KZOl IpSlrM54jJNcEBqtWv2j dPjczVlaTO5iHRTacjis t459SjUpb7jaOMBe yZBtQVtkGVU1J30gh4M9 TWTyCUSuNZY9aEJ5aQ1h bGlnbjogbGVmdDsgdmVy zBfxFTssUYxsJ852 IHRvcDsnPlBhdGllbnQg YrVcXCz2G4ExXeu3DZNj eOuuOO5hxWNbHIgwMz6a yBmvbZulXO9tNHBm mcuyb872KrIxf1wlIDMa oVVyPLhyOAK6R78is7W7 FZKfQHYaRSE9rTS5tV9f bGlnbjogbGVmdDsg qxZdtRssVXbySJqgG163 IHRvcDsnPkJpcnRoIERh rXO8XZ52IC29uAWuv2W6 lWQ2N7WaMFBpevwy lxwuyYA0KBBrTGLhfN90 Zp4vdVziPk9pHZRqTHG3 RIIvrHIjZ2IquT8pEsEv QJRhSMHoY4TwgFOx ZOpsP772ZJcxFgS8INYf qvXeF8HyIWYvtFjqTuO0 f4S3Gt7MV8A7FH11IR07 jHCpi3B1gLB3A0Xq HYCqzvnyupwysLK9WGVz ZKUgqQ55Bt8zqJodMc7j UZUbRUT9EIAqmWIaT2Np pZ5hIbTiAZHeVYQi W5NueKPvEJzhW272SXrg IfY2XAGbcsZgY6QyWPPm yScvKdR2m6C2Og0WZSf9 QY99UU79kGAtq6J1 kZW4U6KcMZXqxhqzhucs dPF8MAUcPCFxdQ47Dc9o tHcxEb5dKRGyOZW3XDGw tZEsX2ChkV0qZgZy UUToXRZjZ2EdfELzNTsl M685OOhuClE5BMNgljPs T4CvBQKwyQvgZkT9s1R1 Im7IBOMiOT13RJR6 dTM2AI68YJ60F0UaQpph dGFibGU+PHRhYmxlIHdp ZHRoPScxMDAlJyBzdHls VK8yNc7lDOLkOCYa zLcjsKLxAwWwj8rfNDCm GXmiPP2xpPbjK4ZunUS3 HXRkk1j1Kw59Y25aQ5Uk dXA+VDStwRT5rJB6 uN6qQkFlVsA7HKksU862 HzVrfKBvYhgmi5ykc9dx dOa9VuT7AMVywtHptMuh RPI7d7MpSo77P12m IHdpZHRoPSIxNSUiIHZh bKntzi5ezR0zTd2+PGNv iVM7pNE4gJ2wVpCfFzF5 WPaiI676YvJevBYr Swdjb8nre7etoIg1GlAe HQWwprLmyNotUVQ9q0Lv Fs02G9YdoTlrv7TrGwd3 yk55fUZjc8N6mHG0 N6GbXPYemurgwXDnjEwf JK7gEXRtvxlgNICtxS0c KKPmM0g7SbOvGqT8QRwn M8NsogN6YOZyzRTl IPyaIFA9K17fx9U7YHHo JTCdSXG5rJD8oV1vdLko bjogbGVmdDsgdmVydGlj AYwuLSqeM046CDDw xLinSBGyqW7fUPYtbOEh jMknNO7rDDRkovtsQtPM Z8ABObghTpKMWmTAFNmE UoXUGMPIPIL2H0Ju Trr0QDKewLyuKV2ocEDj HMdeJe7emAeieWfzHW1d FVCumzwzCRAsqH0vKBKk fCKyfRjmJQ5uHFAt jtvab833PmZpSNT0ZCVv cZYnM7WwjH7pGbLhCUBv ZVVwU8AykVRcSQngY429 PFebBrU6NJCicaTd V1RvXFKprDqwDoV3k3K6 Bj1yPJ2kEn1yQGL6QQ42 WR74yHYeo4A0yWE2V5Gx ZGRpbmctcmlnaHQ6 LMSvDVBgmZ75mHWfNCou Mx1hw3Q6t120GCEdIVSb oE79Sj6mvShjSULzuLKX fD5ehmdet3qrepwj MpZuMKYkEJg4LDb7ILMb wXkyLvYdMWE6EgM5FOV2 kAWgnH0qgHoevataiV7b Oyc+NjMgWWVhcnM8 H6FrPzq7OAXkrWxnXK4k gUWeOEsvBl5wwNoavXtf FC3oPRPjnmvpKIKfyC5c HJTcmEXeqLbrYQ5a SLBhdoold079AdHtFAO4 BCVzkABlF7YujK1fAjTd ZVGgLOJjE0KubJPjXSiq D645RDttNxQ2KUZa hqQpM6InDVTgdDxpMnQ5 q5U2Ds3UXBcTGU22TA12 iYBsz8R6eCW8C9PaQOHk vsmbpowghHX3ZDJx CQRpvX17fCZeNLorTj6p c5R4z668QZHuNQEtdW47 Zh4fpVxgOWXyzPSRgM9m hhsir5upkzzgYvWa LRWpDFr8GIo4BTApcSwm GkPtVCB4RcL5NUP7xKVz nT6loXceubdhiP5xKjm+ VZZ8PBU7qqmgchd3 G1UaChjtmOZ+OV90MHJt FQ57cJDonKYcv1jqcGt0 VhTfTBZrCNU9fToaNUld e7VqJONtV77dgNCs k6K6YVKprEknvTXfPcAh aCR2jY8gZOdqvglpc9fj pygiRsnvm3hgex75qV45 O37fLRcxQUAaAIDl VZKpOYVyiBqroi5shH4q Ii8+UQLobWD7kDB7kX8d WvMeJoE4YJgtI996AzFj hNFpAlegl0bde5ae mQp2LfLvNSHwenXckLzc WHW1y7OkZy32I55tSGpy ZHRoPSIyMCUiIHZhbGln zz0pmY8tUs4+PC9j d2ulaj19lB83uKM+PHRk UHS5kWxwUNuiXCYyxU8o GOvvLbU4KPDsKnRqiD93 gPHsQZslFd9ozWkr qLotKB8oPVGzvspld656 LeOch0zaKVIqpTRqSZyy GAD2G32fz2O9AHDwIBVh QQQ5pQO7dB5aqZaf bjogbGVmdDsgdmVydGlj NAjgCTnwM339SEFpbPxx QyOvvEQwS4dfzzBWXE2b OjwvdGQ+PHRkIHN0 cPvmRFqpTCGcvU4aZMRs E0q8JwDyXyC5VFmrS7Yd hbV5JHPgrHXwRXKpiSJS qO2snkqjt6ieuvdf YgQnMDXcBVf1ZVc7TTUw tEtdToKuRBF3JyB5JZX2 vVVrzN5ksPfkvlpgbZ1k Oyc+RklOOjwvdGQ+ APMfZDY2vMhbVGaaGHFd xX2yWIOoQ4n6YeThGtB6 QExbZ5QfspU1BTRglCWs GTTocNOKeE9ycbta v9utghgiBsQvPEAhXVk6 GAp4XQRkyQttKaRbGNS1 UdN9KFI6fRFueY0vwAkn omlkwZ0wHnp+TVJO OjwvdGQ+KLEsTEM3yJwt MDtcXUOydT0pMXIkK8v6 HvKsFhP7UChbY4QjkrK5 IGJvbGQgMTBwdCBU jP1capftu2siysduAuXj PVHlNRa6TJa9ROQevIrt XnDxVZL1WxT3KEZ9lNBu vP0mjBryzipzuO5c Oyc+DEM0KOS9IT68NV26 O2OzNrysmVGulFU+PHRh YmxlIHdpZHRoPScxMDAl ZuPutLkjBH0aFj9e ZGV (more content not included)... [facility] Consent Formson 02-09-2021 Consent Forms [id number] [id number] [facility] Anesthesia Noteon 02-08-2021 Anesthesia Note Patient: MAHESH [...] on: 02/08/2021 08:21 EDT] Rene Eden DO [facility] Anesthesia Note Patient: MAHESH GONZALEZ Age: 65 [...] = 50 mL, 100 mL/hr, IV Piggyback, Tripoler Documented Medications Documented Jardiance 25 mg oral [...] All Problems Diabetes mellitus / SNOMED CT 329781774 / Confirmed Hypertension / SNOMED CT 4515650847 / Confirmed, Active Problems (2) Diabetes mellitus Hypertension Histories Family History: No family history items have been selected or recorded. Procedure history: Cholecystectomy (01739031). Social History Electronic Cigarette/Vaping Assessment Electronic Cigarette [...] / Management Results review ECG interpretation Plan [employer]#(A SA) physical status classification: [...] 02/08/2021 07:10 EDT] Rene Eden DO [facility] Inpatient Patient Summaryon 02-08-2021 [place] [address] Patient Discharge Instructions Name: MAHESH GONZALEZ : 1955 Patient Address: [address] [place] [address] Primary Care Provider: Name: ROXY FERRERA MD After you are discharged if you find you have any questions, please, call [phone] ext [phone] to speak to a nurse. Discharge Diagnosis: BPH (benign prostatic hyperplasia) Prescription Information: If you have been given a prescription for narcotics, seek immediate medical attention if you have any difficulty breathing or any sudden status changes such as confusion and sleepiness. If you or anyone you know is experiencing suicidal thoughts, mental health, alcohol and/or drug addiction problems; contact the [facility] 12/03 Crisis Hotline -Text 4HEUJ wi 894534. If you received any narcotics, sedation, or [...] business decisions or sign any legal documents [facility] would like to thank you for allowing us to assist you with your healthcare needs. The following includes patient education materials and information regarding your injury/illness. MAHESH GONZALEZ has been given the following list of follow-up instructions, prescriptions, and patient education materials: Follow-up Instructions With: Address: When: Sunny Marie [address] [place] [address], [facility] [place] [address] Business (1) With: Address: When: ROXY FERRERA [address] [place] [id number] Business (1) Medications During the course [...] NO Uri (more content not included)... [facility] MAGR Intraoperative Recordon 02-08-2021 MAGR Intraoperative Record MAGR Intra-Op Record Summary Primary Physician: Sunny Marie MD Finalized Date/Time: 02/08/21 08:56:26 Pt. Name: MAHESH GONZALEZ/Sex: 1955 MALE Med Rec #: [id number] Physician: Sunny Marie MD Financial #: [id number] Pt. Type: D Room/Bed: / Admit/Disch: 02/08/21 06:03:15 - Institution: Case Times MAGR Entry 1 Patient In Room Time 02/08/21 07:30:00 Out Room Time 02/08/21 07:59:00 Anesthesia Start Time 02/08/21 07:32:00 Stop Time 02/08/21 08:03:00 Surgery Start Time 02/08/21 07:42:00 Stop Time 02/08/21 07:52:00 Last Modified By: Melba Smith RN 02/08/21 08:32:58 Case Attendance MAGR Entry 1 Entry 2 Entry 3 Case Attendee Frank MENDEZ, Rene Dahl Barbara RN Role Performed Surgeon - Primary Anesthesiologist of Photovoltaic Installer Record Time In 02/08/21 07:30:00 02/08/21 07:30:00 02/08/21 07:30:00 Time Out 02/08/21 07:59:00 02/08/21 07:59:00 02/08/21 07:59:00 Procedure UROLIFT - SN UROLIFT - SN UROLIFT - SN Last Modified By: Melba Smith RN, Barbara RN Long, Barbara RN 02/08/21 08:04:23 02/08/21 08:04:23 02/08/21 08:04:23 Entry 4 Entry 5 Case Attendee Flor Santos Brittany E CSFA Regina COMMERCIAL LOAN ANALYST Role Performed Scrub Personnel Slasher Runner Time In 02/08/21 07:30:00 02/08/21 07:30:00 Time [...] operative or invasi (more content not included)... [facility] Postoperative Record MAGR Phase II Record Summary Primary Physician: Sunny Marie MD Finalized Date/Time: 02/08/21 08:55:55 Pt. Name: MAHESH GONZALEZ/Sex: 1955 MALE Med Rec #: [id number] Physician: Sunny Marie MD Financial #: [id number] Pt. Type: D Room/Bed: / Admit/Disch: 02/08/21 [...] Signed By: Tanisha Trevizo RN 02/08/21 08:55 [facility] 02-08-2021 MAGR Preoperative Record MAGR Pre-Op Record Summary Primary Physician: Sunny Marie MD Finalized Date/Time: 02/08/21 07:45:19 Pt. Name: MAHESH GONZALEZ/Sex: 1955 MALE Med Rec #: [id number] Physician: Sunny Marie MD Financial #: [id number] Pt. Type: D Room/Bed: / Admit/Disch: 02/08/21 [...] Signed By: Melba Smith RN 02/08/21 07:45 [facility] POCT Glucose Levelon 021 Glucose [Mass/Vol] 131 mg/dL High 74-118 [facility] Comment on above: Performed By: #### [id number] ####[facility] (DEFAULT)[address] [place] [address] Patient Handouton 02-08-2021 Patient Handout [facility] Coding Summaryon 02-07-2021 Coding Summary HTMLBase 64 YfpzcylgPNe0iBv+PGhl YWQ+ZT1SDWJuT68trZYu yH5MS0wQVG4SNYYXMHAQ DO0IKO0kwBM5ZHwfG9Cx biAv QrocfVWwMM41PQn8EOO9 jMrrBVggrT9jcZQtS5f0 HlHpVL44iU04VPsaMRHq EsR1KgBkcomlzUSi B5buSvZdoVVeShm+PHRh YmxlIHdpZHRoPScxMDAl CsBohAjhJB5sOx9aGNCl LWNvbGxhcHNlOiBj h0yxCPDiDXdbDP7jxKik R4DfkJA1WGVyh8b0Ab80 dHI+KNCuKXR5qQzrIFwl n942RxWfb6rtXIA7 nNXpOFvbHDO2M30dc5K2 VFLuMCLhWHB2mRH1tV7s lMwgidgbX3HdvKAoLdT7 IYW4jNRwpF6xsBud ldefzI7pShx+G98OYK6X XILJPM1QPya6D6GgBtrz dHI+XL93XQUuVT37jRBv wGVrn5nxdFa7UiIo GTUxVFR5cJunNEpbj7Lj HMGcC04xnVTii5T2ZUSu vDrssESfXdCvcNB3fO4p CQblearry2xxpach Oxsfw4omrw90pM94Q90q DMnsWMDbAUH3QTZaBKVa mTqrby6lmM7lAo7+IDxj r3gvc9badRu1AvGx UDDbnpGcrPbrPCS6l6Zk Hf34Y4PmkKgtt6LrItl6 th65vILct3F7zMN3MUdd VKSqfK3xYEnvRmS5 YIVpLbIrvZ19dSOsABtj Rr4zaSrizUgrXO1fFYFe ggfkTYOdxV5aJEFblZTv lGczQW2hMXFwqpmd v930ZeMcMKG5PIRqpYPk E1QmaZ4hBoSsQECnEWGy M5CgpVBnTNepO227NMab ApY1CQZyudMnU9Vj IRThuGisXoH0b4C4Gn6I f1LaehvjPWE7AMjoEVW4 ImYpNpVpBaZ8D7JzIwp4 IKRoaUvyIS3mB7Zo YNJlbsbnnrfhnTF5VITq JIYxiU05nKNaDPcqVg1k w5E3a171AMXtGYPrvK97 Xg8pbQnqIKLcfKAV aH8ciften0pesnjaJsFa JMKrUXf6UDt1AGXlvSav CuDfEPV9QbX4GGB6uKLk lX9unCndmvuxvU5x Oyc+P76krS0nDUY4RHO8 rfffZTVktqPcTM20DC51 K2ItHxiiaQIvaRL+PGRp hrLnaPrdCH0hAwBi q3mmq3GkUBfcN2WqQZAl ZNtzIgb3ALEuZAC2sVH5 bR6aANBcNFkan2E3iDL0 Z2XiefDqqo5fm4vh WQGcDWjoI30miUYth1X7 EQBjjMU9JNEuuAunWjKz mL44Cyn+GBBaeVzfy3Vh Izkpy8odg4coaWz1 IjMwJSIgdmFsaWduPSJ0 g9ZvNf71A59aMVqlTWJx IYOdVXZuWUBeqAyxco0b eU4fHa4+PGNvbCB3 jLO6aZ6mKIVaSeH2KXbh P021WnDlsLKlQnphs3nr w8hqjMi2TbTyHMCjwzWp gIvaRYW1k0GeYm93 A68mMPonTNDlECUrDMFv HGZgiTsujr7jvM7bDt7+ JC6vu7azen44qV62wRC+ XOEnIGK3kCvtYEuo PAFtnN0fKAdyZmQ2VSAd ZpIomI07cPLjKHnqGe5t hYlrmXmaCF4vVLXzhwzk m789ZfXfh8mnMBVw jIVyDKzkMPL8T79rn1B4 ACTvQUVhVOY6gTJ6iE7h bGlnbjogbGVmdDsgdmVy iUzmYOaeIRthH497 IHRvcDsnPlBhdGllbnQg HpSmRMk4N1CqVrz2RKZh wBymCT5yeKIjWAzrGe9r pPqsuCxzVH8fORJu ydunl720NiPrm4gdSMCl xDAkZPvrGGO1A64ba4L0 JAIbOIDfRGX1uLR0yI1k bGlnbjogbGVmdDsg fnMddNkcPPmqWEqbX393 IHRvcDsnPkJpcnRoIERh tYS0TQ87WH46mZTyq9L1 jQU4X4HdJMSukixj xbsccEB9PISmURHemV38 Pm8tuGjyDh6rMYAaNEU8 KBGbpWIuV4KhrA4gAbHn JMMsNEBbH2BbwXTu MVdfL029WIqaWrH0SJXl luMqD9LuTLBrzNtbLkW4 s9K0Wk2QN3G9HG07CZ50 iCDuv3Q2kBS7E0Fj LJFtgsefkxdmnPN5TXYw TLTuiP39Zy1keOkhYy1h EHEhYRP5IWMnqNXwS0Lq gI6pBaYnGCMnKUIy N0LjySYjJFlrZ962OAki BvS3PLLvpfOmA1IbKMYf bBgdLxS6o8M9Dz0ZMNj1 PK24EM09nTByr7B9 wID2O0BgSCAmhnqwjlub jQT9WCRgTSQliN49Vc0k uSwuOm6nSFIkHKJ1QGAh mVQcP8DdpI9cEoAt HONvTGXtZ9XldDMpDOsd O729UNukIuV7MYMhrzLh Z8MoVOXcoPfcPgT8x6Y0 Vn7UXSDoRU11QNL2 wTG4ZT84MP92Y3OuZmfh dGFibGU+PHRhYmxlIHdp ZHRoPScxMDAlJyBzdHls CI7hOk2hALIoUTNo sTngpINkOgRxu6asFGKw JUrkGT3axQrqS8SzoZC6 BJGru0t6Nq63Z85tE6Vj dXA+LUNarVX3mVD5 sZ6cWyWzBnD4URdtM043 UlFxoEWmYiilg3ozw1vy ySw5CkY5EVRvyoMmoXbo VCU3a3DmVc25H14e IHdpZHRoPSIxNSUiIHZh aXzxwl6njR9kAk9+PGNv oYA7dHF6qO6qDpXrWzN0 CVonO794UsHawCHk Jeywb9brw0djjEz7PoRh UZQxfkUpuUzpVRL8f7Ie Bk63Q5PncYjpp3UlQnm8 ki84rWKbs8J8aQL2 N3IwREIhmceldJZikKaw UA1mJIQwcynmMRXjjH4h BWIzX3j0FvQaDeU4STfy L0OjhrU5PGThuBDn PXnrOTO9C20ph6R1XAJp FXLbIZK2oZF3wT2arLow bjogbGVmdDsgdmVydGlj ZBxtCQmyD887HMPj tJppLTGvfQ0aXCKxaQKm nKqbZA7tRHUeklxwZrDG A0LGUsmuKxNIZqEXPKuK MxEEYOESMMT6D2Qx Eep3RGVexChnOI5mtITn KKrxKq4ftWmhgTdmKW3b OGMyhvhqMWWtrL4qLVWc kOXnuPnhWF8yZIMo fmvpj476XuJtHDG3QQWu uFZhL9YveB2pKnDdBJUr SUZeH5BwjOJiCDbxM007 DGkyVpJ9PNGbdcNb O9DnEZUdtGjmFiT3u7E3 Jw9bQN6tTv0eZQW8JQ89 LY28cYGoh8N1jVJ2O2Vx ZGRpbmctcmlnaHQ6 HUXuTEDeqN95lXRoQSvm Oj4sn4E2c671ONQxJCFg jK97Oi7wmLcnSZNpySRU mS8jytilt9ulsolt UnDdOYJfGPq0OCh4XPGc vUszTjYtLRR1CoX7IXN8 tOVbmY6epOkoddzhwX0h Oyc+NjMgWWVhcnM8 P6PaVpt5BRFxcZhlSC0l xGDiIHbkLd0qtNnjqDup OI7lLBJhysflAWLwpY0b AHJtyVYrxTbmYH8i CHJsbxnom422TxDuTWL4 JCQvzWAuV3NqdG5oAeHs ZHHxJXUjE9GktIUyVFoq X526DPtxSiN2ROYb hwHhA4LwIBWlhLmlHfA7 n0H0Yz5NUPiHBV46LS95 nQQdo1O4vKH0Q4XpITUq ctxmrmtwsRW9MYGb VUBxwU68dSCmNPtnXv7f m1W3j381KGUrRECiuQ44 Sx6onZtoDWHnfQNVaC7m iicmx5fisbbxZiKz DLZqTKy3AGa2CZPefXhd VhUjGLC7QuD0BXN4zBHu wU9znKkeowywwY7wJmy+ E2V5N9ZoTtevoAH+ FU18PKElAJ95jNZslDKw f0yvgMl4AeMfIFStTWX9 tEjwVLhfm4FbFDGzR70q pNTsq5I1HDCqyBia dJMfAaNmlUH7qI5hSWha kjymv7uilqazDmslf4gl rq60rT22G25mVBscKULd PSIzMCUiIHZhbGln zy3fwG5xXw3+PGNvbCB3 bJO8cB4dVoFxAuI0TZoh E593ZfMvoXZfPllub2ak q1znwPg7PoKaOLCd qgMmqGktENR4f9ZnRe40 D78wZHlbVCYiQPPxOCMn BXVmkDaiwo7fsV3qQp3+ OY2kw6vjem51xB61 dHI+YYKjRAX6gUmjJRvr MAQvyG5eOZejZwJ7HIYz JgKohZ38uNJtCUfiPn7b gAlkgGlgTQ8pFHNk tvnox284ZbAft8wdPFNg fIZnLYybPZL2E17yw4O3 HDTsPORtQZJ3ySY7yP9u bGlnbjogbGVmdDsg pwBppDgcKJqhVYpxF777 ROQnlTkqGiSpxKXhU8cb maWKOQ4tVtozrKJ+PHRk TMG2oAhkAZowEPWt yH1fIUSzM5p2WyQqDqJ8 BIqnT9TcofC5HCLycFTp KZXmnCCLgI6nuxumb4us cjogIzAwMDAwMDt0 XLc4POHvhXsdMmYgEAP7 CnK8CZV6rDInwF6fpLun njwsvF7hVdo+RklOOjwv dGQ+ZZUdFLC3lXeq FScgXSSdpZ4zICLtX2d9 FaDtQzT8SEbaD3KxvjQ9 MKTqhHVrYHCjxVXXxS2g jpsds5fwmnyuGpLj ZWMxDHd4FTh0FKQyiLgc EjSpAPE8NbI0ZCN1fICs wR8zoIcxdurcoE1pEpy+ TVJOOjwvdGQ+PHRk WUO8lSaoFYwiDQSgrK9p CQQrE5z5WsKsQrQ7ACem U5VbkcT8ZMGftZYkMQSu dWFGzM1jdppcr0ce bjyzRbBdOAQcCKh3DUz2 TNNvtDifNuIpPUG3KjZ7 GJW6qNUboH6qoIospfiz iC3bVdt+FKF4VGL9 RS08AG94R4TeAmmzaZDl bGU+PHRhYmxlIHdpZHRo BWtlINUvMkFebBqhIT1l Oy3bXIMnZEVvjMkp cHN (more content not included)... [facility] Progress Note - Nurseon - Progress Note - Nurse Patient phoned in- patient informed of arrival time of 0600 on 02-08-2021 for surgery. Patient reminded of NPO status after midnight except for any medication that he was instructed to take with sip of water. Pt informed of needing ride home form hospital. Patient with understanding. [Electronically Signed on: 02/07/2021 11:21 EDT] Viky Roberts RN [Verified on: 02/07/2021 11:21 EDT] Viky Roberts RN [facility] 2018 Novel Coronavirus (CoVI D-19), VERONA LCon 02-05-2021 SARS-CoV-2 (COVID-19) RNA VERONA+probe Ql (Unsp spec) Not detected Invalid Interpretation Code Not Detected [facility] Comment on above: Order Comment: 31294 [phone] Result Comment: This nucleic acid amplification test was developed and its performance characteristics determined by [employer]. Nucleic acid amplification tests include RT- PCR [...] detected) result in this assay. Performed At: [address], [place] [id number] Natalee Dugan PhD Ph:[phone] Performed By: #### 6 [id number] ####[place] [id number] Coding Summaryon 01-24-2021 Coding Summary HTMLBase 64 HbouswwoHZs3uMu+PGhl YWQ+BH1GQAKhL41naORz oT2BD0rMOD8XZXQMWEFV QE5EOA9jfVO0ZLekQ8Dv biAv SoocqLOoKI69UWt3QJV0 uNeeEXueiN1xsNGjG3t4 UoGjUK01xO96USjcXDDx UeF8FaScixvztYPb E2wcJtJrnTAzUtw+PHRh YmxlIHdpZHRoPScxMDAl NaEsaUkzCS3nWk8aICAl LWNvbGxhcHNlOiBj v1egHSVgPYwvIH7jrWtc E3OtyRU0BNDgm7d4Gf77 dHI+HFYtKLL1eJbjWYqs g414RzHsk7ttXPE0 uGVgSFfrPXE8I00td4N9 MZGuLRMhVJI8sBA1rT5f zNutiyohL2OhlCBpGzX8 ZGO8aSYugO3cdXyg gkrikL3wZih+Y39XPM3Y DABOTL4UUmh9U3ZbFksu dHI+LQ32UBDhVT20fKZl dNDtw6quxRz6EcAy DUPyZBK4nMxiHUxgq6Ka THGyW40aiCVzs7V0VQXh kKgfwILhYxAmzMT4qU3f NOhcponnu0vqnonq Exwbm5znfx18dH69P14y SMnaSIXsHVH8ISTmQNVi fXvisf6gpN8xZc9+IDxj i5cmy8nvbWp0KqBo LSErcyMhtCduULZ0j9Kv Dh99A8YteKybo3YoDwy9 ar33iBXxi8F4mLI0DHiw BWBtyV4iWUomKrE8 LSDyJsDclI37qMIjMOft Vr5gdWzplCfsEE0nAUIk rvecFQOzuH3hHQSsaDTr pXpoTD3aDRFzgqtk w484XyVfEQI6GZQiiPEg A2UrrL3sFzMlAPMhIFDg Y9BjqTYgOHzpA623EBtm FxY8FKZpijYbW5Ry XXYqvRodFxS2x4A1Ep7Z a4HbxqniIUA0IGvlWBO5 WuX1UsEuMpT1S8GmPmp8 RMPhsEfdUC7lN9Yx WBQciohmdubhjYI5HQHv EDMazV29bMXbKCmrZy4f j3R7c160SSDvJAIhhZ89 Rm2wgSuyEQEmkPVZ gM6xnezev8jmvloiSaSh CIEnPJk3GLj7SDEkwIwv IvUbCKH2CaB9QUK8kLIs kA5hjVpqpjzcvD1m Oyc+C11trY5jSEZ9IMQ2 frjiMBHbkpIwJB19WD70 G9XsUhpgaXQqpGA+PGRp zgVreZoyNW8bWiId o7rbi5JhOCxeS8FwHSFi RBktDgo9DMBjDNT7nDN8 vZ1yZPRoNExcs6J4yXW2 M2EpsdRszp9wj0li NYJrQWkwO42naUMar9M2 ZTCqaUJ9XSXnuVkyUeEn xU76Imf+AAFwwYvxn1Al Kgxqo9mau5uydUm5 IjMwJSIgdmFsaWduPSJ0 g1UzJr26Q59vHThyULUa CZFoIWJwTNWjjSjtam1z lA4rJl8+PGNvbCB3 aXC9fR5fQXGlTmY4UPuj C246EdGyhSAbRstfv4ou f6hozNk3QyWaEUSlqxRm bBwxQIZ0j2NzVy54 B81mJInyPCHoXEHeCVXf PHNjjKatds2slA0sRx0+ QU4qr9jayr27yU80zHP+ HDTgSNH0gSepLEiu TCMruQ3nHHkuCnO9ZSJy LyCkhN50gQWwOKouAp1u uYvrqDwfWE7gFDImofun b719KcOxm1owQTOr jLRqIIctITW5T79jl4E6 NUBeMGEmRWS0iDW1yI4h bGlnbjogbGVmdDsgdmVy vVxtATsqSVkjP783 IHRvcDsnPlBhdGllbnQg RsIgTXg8A4BjDyk3EGAf hCfwJF9bkWHvRYotUq0o mRbddAybBG1lZSUd lauri203ZzPwo8xgTTQd iLBoLTcaVHZ0Y86ae3B6 RNFgVHIoECD6wGX8mP7n bGlnbjogbGVmdDsg opLqpVwpFHbvAOwuP229 IHRvcDsnPkJpcnRoIERh qQV4LS29LZ48hMQap7Y3 gZT8X7YeOQWbmopq nthlgUG3HWBoUVGezQ98 Mf6beEjkQy5hRASbUKB7 QBNryOOxG3NtiH7nKpBs WJZjJEJyJ9ZtrVEj UOteV683TDygAnT8XJEb fxIzW8SvWZNxhHihYkP9 n5T9Gt1NC9I5AL11IQ47 gJHyj5Q6jMJ9S4Vj KESbziilfaymgOB3JSCq ONRtrX30Ho5vrNokAk5g DKAyXFO5RPFlrFHqG3Xi jL4oQrGfEMZbSJGn K7YmyYCkLUuwV279UEse BlA9HHYqmnRfE5TiSERy kGpdBfF6d2G3Bb0KLJm0 UC41UA19wHEci0K2 qKD9U3RuLDCebzgyhefh eEK7VHBrGVHrdQ13Qa2w rTywFm7aFSJuVYY2ILEi cEXsX6IpyG6bBxSp CVKaVYMyG8PloZOxAJfy Y380BCrzPiP0DTKmtgCx H0BtZNQgiOhqNsV3c6M9 Ie4KZNQoAD79KGV8 eFM4MP37KE30G4QrNshz dGFibGU+PHRhYmxlIHdp ZHRoPScxMDAlJyBzdHls ZN9rHq9kVGXcOSJi bJycvMJbXkKwi6ihVVTa KVpgEM1lfKncV0UmmFE8 PLUey6d8Bf19J03aW9To dXA+RACwnSZ1mPP5 pJ9jCnYuQdC1VGymB662 BbBguSYjSijsl1vod5gv sOq2IvZ7REKxjsDlnZzf EMA4j3AhZw55M42t IHdpZHRoPSIxNSUiIHZh sHmoli2xdG2rIx9+PGNv lIZ1mBK2jV8cZuLrDrW8 NZpoR252LqBolUEy Lyzkt5swe6nszZm6OcAp TOEjyfXrtNodGIC7z2Sv Ui79C1JlbQaak0HaXny0 ov79hSMgx6M6uCN9 F5OsCPFisesmzXNxaIir RL0nJQImnmlpWHLfoS5k KTIhC5c3ElQuXwV9EGkj C7JjrsU7ITYqeCSo TDyuDST2Z06kj9L5THSe BDGoQJQ3tKX7vU3hmMhm bjogbGVmdDsgdmVydGlj RUkvNUapX832DFHa zEdcNYZsfP5eNNDuzVOs fZqnXS2eMIDihwcaHpIU D8IOIaqsLuSWOdBJJRnN ShNQAAFBFOO0F9Je Ief3YECowYlgQC5ikIRk LIofAt6wsIyauSeaIC2x XYXjtzhwVALiiR2gRPIp hHXxjIkfZH8vRFIq ltxkf545WwTyEMY6OBXx lLSbC5EzkS9bTgZbGQPc AXEeT6TlgMZbWYorX996 JVdyIgK2HIGnsxKr K0VmPQAzyRjoKcI2b5F7 Ri9aGR6aFp2iXVE4TC66 PU57vOZng9M7yUQ5G7Hh ZGRpbmctcmlnaHQ6 GMSlCEAkmY21bGHfWErc Bv7mr9Y0d651QZEhUGGm pK20Ok9blYilXELhmHEQ oJ7sgnccn8alqyem RjAxQOYyLLp6GJm8WWHm bXmxKbWeHRZ7PhM6INW4 dVMatN7xaWqzqbqkyA5k Oyc+NjMgWWVhcnM8 X9RdNji4XOWxySmeGA2v yBMzVExhEy3idAgbhUtw QA7bGYOzycsbOKXurW1x MRMsxNJwaDmyXO6j IBZgmvnag922MeXkLMR9 YRHxnNDkZ9RfxF1rCeNb WDFiCUVuH9GnwTPoMVmo W271JYimLoO8NLDf seVpT1QcSCVpsBbuEmH0 m9C8Do7OQWdDHN90MY84 yFHnz2L0kME0K5FyMCAm tftbnohpzEJ9JXUx SSBkkC81cMNzMKejQt9g i3O0y844OYUsPBLseF39 Kj2ncLymIAQptMPAhF6h aodmc6duxjcuCoFy FOJkEKc3QAy2SEBauPbg LfPpTAR1CfG0TGA2jUSw nQ9odRumupascC9zXrm+ S8J4U5RxQdpiiVK+ PJ01JRLdWW10eWYvtOEg h3rncZp3PpQsLPSfXDX1 dVphGLzfh7ZsGYPkT56m dAQsg7I5VHJsjZax dYMcDmSdyJR6aQ2cHYct qbapi2gwgvriGokxr2yw pb32zC56Q07nWRcqMVSi PSIzMCUiIHZhbGln eb7peE4gRz7+PGNvbCB3 iAY6aU0oMmDdBiX9QMvb U133TwCocUSeWypcm9ju l3sqmSl5JsTpRPWj pyTvxEefFCO9c4LgPv98 Q99pCWygWYJzTIWxZRMz DHYsyNmlkl5pxG1aQv7+ KT9rw2dxrc05wA56 dHI+XXBrAHE1uKmqEBns KUGunI7nSQkoQaJ7FVOz ReEpxU67mXFbQEzjDo0v xWdihCdyOA8ePLVc wyrjn757RhUgq8uaIXLn kUPsCIrvBNP7T31jw6W6 YOCbMEIuIXE1nQN0eF7w bGlnbjogbGVmdDsg ycTpbQqiPSklURotM979 YPJtfRwhZzPmiKWyX5gr qrAMUT1pXnyuiIA+PHRk FCD5zOtqEAesCABp pK1mBLHlR9n5YeYsGbW6 WCxeG4ImbiU1UILluTQz PJBzkVDIgQ8hsidbh5qv cjogIzAwMDAwMDt0 KPw2YBCnlEkpXdRlFAM9 UvU1REG5oOUqrR5mqNcv qkkdiH4gNzh+RklOOjwv dGQ+RCJwXXN9hBuu MHdqUUAokR1jNLImR4j3 CpRiKtP0IUfjX5PhdfQ2 IUIzzTVbAUYqmJPFhH9h jfcjm9oswnwzJeKz WFRsSMg3PFu3IGLxcPoa EzQjFUQ5JeT1HWC5eAPf mE7xzAeyvlrtmN7bFup+ TVJOOjwvdGQ+PHRk BNP9wIavQQfsIGZwiJ2e FIRiW2d9JcMpFwB7QYmb E2OjcnN1ZGEctVAvZRUp vYZHpR6rypkok3fr gjneNqVtTXWfNFm1PCc8 GJWcqLktBkRnRND2RzT6 CKE0sPKjdI2zqVtpaicp wZ1vKsa+STF7AHJ4 QC16YI02Q2ZcZwqbhPKd bGU+PHRhYmxlIHdpZHRo ASkaFWJnAeAxyGiqLX2m Go8wAVXcKSAzjDtj cHN (more content not included)... [facility] Progress Note - Nurseon Progress Note - Nurse Dr. Spencer review ed chart and no new orders received. [Electronically Signed on: 01/24/2021 15:51 EDT] Rosa Lala RN [Verified on: 01/24/2021 15:51 EDT] Rosa Lala RN [facility] Provider Orderson 01-24-2021 Provider Orders [id number] [facility] C Urineon 01-23-2021 C Urine No growth at 2 days. [facility] Comment on above: Performed By: #### 6 [id number] ####[facility] (DEFAULT)[address] [place] [address] .Auto Diff 1on 01-21-2021 Auto Stone % 7 % Normal 08-31 [facility] Comment on above: Performed By: #### 1 [id number] #### [facility] (DEFAULT) [address] [place] [address] Baso Abs# 0.0 x10 Normal 0.0-0.2 [facility] Comment on above: Performed By: #### 1 [id number] #### [facility] (DEFAULT) [address] [place] [address] 86494 Basophils/100 WBC (Bld) 0.5 % Normal 0.2-2.0 [facility] Comment on above: Performed By: #### 1 [id number] #### [facility] (DEFAULT) [address] [place] [address]757 Eos Abs# 0.4 x10 Normal 0.0-0.4 [facility] Comment on above: Performed By: #### 1 [id number] #### [facility] (DEFAULT) [address] [place] [address] 81500 Eosinophils/100 WBC (Bld) 5.2 % High 0.9-4.0 [facility] Comment on above: Performed By: #### 1 [id number], [id number] #### [facility] (DEFAULT) [address] [place] [address] 52103 Lymph Abs# 2.6 x10 Normal 1.3-2.9 [facility] Comment on above: Performed By: #### 1 [id number] #### [facility] (DEFAULT) [address] [place] [address] 66470 Lymphocytes/100 WBC (Bld) 33 % Normal 14-48 [facility] Comment on above: Performed By: #### 1 [id number] #### [facility] (DEFAULT) [address] [place] [address] 09724 Stone Abs# 0.6 x10 Normal 0.0-0.8 [facility] Comment on above: Performed By: #### 1 [id number] #### [facility] (DEFAULT) [address] [place] [address] 34610 Neut Abs# 4.2 x10 Normal 1.5-9.2 [facility] Comment on above: Performed By: #### 1 [id number], [id number] #### [facility] (DEFAULT) [address] [place] [address] 24114 Neutrophils/100 WBC (Bld) 54 % Normal 44-88 [facility] Comment on above: Performed By: #### 1 [id number], [id number] #### [facility] (DEFAULT) [address] [place] [address] 70704 BMP Standardon 01-21-2021 eGFR Non AA >60 Invalid Interpretation Code [facility] Comment on above: Performed By: #### 1 [id number] ####[facility] (DEFAULT)[address] [place] [address] 64431 eGFR AA >60 Invalid Interpretation Code [facility] Comment on above: Result Comment: Timber Skidder sneha Kidney disease could be indicated at eGFRs of less than 60 ml/min/1.73m2. Kidney Failure is indicated at less than 15 ml/min/1.73m2 Performed By: #### 1 [id number] ####[facility] (DEFAULT)[address] [place] [address] 06993 Anion gap [Moles/Vol] 16.0 mmol/L Normal 5.0-19.0 [facility] Comment on above: Performed By: #### 1 [id number] ####[facility] (DEFAULT)[address] [place] [address] 33131 Calcium [Mass/Vol] 9.2 mg/dL Normal 8.9-10.3 [facility] Comment on above: Performed By: #### 1 [id number] ####[facility] (DEFAULT)[address] [place] [address] 13391 Chloride [Moles/Vol] 101 mmol/L Normal 101-111 [facility] Comment on above: Performed By: #### 1 [id number] ####[facility] (DEFAULT)[address] [place], [place] [id number] CO2 [Moles/Vol] 24 mmol/L Normal 21-32 [facility] Comment on above: Performed By: #### 1 [id number] ####[facility] (DEFAULT)[address] [place] [address]241 Creatinine [Mass/Vol] 1.01 mg/dL Normal 0.90-1.30 [facility] Comment on above: Performed By: #### 1 [id number] ####[facility] (DEFAULT)[address] [place] [address] 29981 Glucose [Mass/Vol] 101.0 mg/dL Normal 74.0-118.0 [facility] Comment on above: Performed By: #### 1 [id number] ####[facility] (DEFAULT)[address] [place] [address] 40434 Osmolality 275 mOsm/L Invalid Interpretation Code [facility] Comment on above: Performed By: #### 1 [id number] ####[facility] (DEFAULT)[address] [place] [address] 09964 Potassium [Moles/Vol] 3.5 mmol/L Low 3.6-5.1 [facility] Comment on above: Performed By: #### 1 [id number] ####[facility] (DEFAULT)[address] [place] [address] 95966 Sodium [Moles/Vol] 137.0 mmol/L Normal 136.0-144.0 [facility] Comment on above: Performed By: #### 1 [id number] ####[facility] (DEFAULT)[address] [place] [address] 62099 Urea nitrogen [Mass/Vol] 16 mg/dL Normal 8-26 [facility] Comment on above: Performed By: #### 1 [id number] ####[facility] (DEFAULT)[address] [place] [address] 57723 Urea nitrogen/Creatinine [Mass ratio] 16.0 mg/mg Normal 4.6-16.2 [facility] Comment on above: Performed By: #### 1 [id number] ####[facility] (DEFAULT)[address] [place] [address] 48388 CBC w/ Auto Diffon 1 Erythrocyte distribution width (RBC) [Ratio] 14.8 % Normal 11.5-15.0 [facility] Comment on above: Performed By: #### 1 [id number] #### [facility] (DEFAULT) [address] [place] [address] 39984 Hematocrit (Bld) [Volume fraction] 47.5 % Normal 34.8-51.9 [facility] Comment on above: Performed By: #### 1 [id number] #### [facility] (DEFAULT) [address] [place] [address] 58157 Hemoglobin (Bld) [Mass/Vol] 16.1 g/dL Normal 11.8-17.7 [facility] Comment on above: Performed By: #### 1 [id number] #### [facility] (DEFAULT) [address] [place] [address] 37735 Instr WBC 7.8 x10 Invalid Interpretation Code [facility] Comment on above: Performed By: #### 1 [id number], [id number] #### [facility] (DEFAULT) [address] [place] [address] 58228 Man Diff? Auto Normal [facility] Comment on above: Performed By: #### 1 [id number] #### [facility] (DEFAULT) [address] [place] [address] 31897 MCH (RBC) [Entitic mass] 28 pg Normal 24-34 [facility] Comment on above: Performed By: #### 1 [id number] #### [facility] (DEFAULT) [address] [place] [address] 89469 MCHC (RBC) [Mass/Vol] 34 g/dL Normal 26-37 [facility] Comment on above: Performed By: #### 1 [id number] #### [facility] (DEFAULT) [address] [place] [address] 09900 MCV (RBC) [Entitic vol] 82 fL Normal 81-100 [facility] Comment on above: Performed By: #### 1 [id number], [id number] #### [facility] (DEFAULT) [address] [place] [address] 11348 Platelet 248 x10 Normal 138-427 [facility] Comment on above: Performed By: #### 1 [id number], [id number] #### [facility] (DEFAULT) [address] [place] [address] 77673 Platelet mean volume (Bld) [Entitic vol] 8.8 fL Normal 6.3-10.2 [facility] Comment on above: Performed By: #### 1 [id number], [id number] #### [facility] (DEFAULT) [address] [place] [address] RBC 5.82 x10 High 3.70-5.30 [facility] Comment on above: Performed By: #### 1 [id number], [id number] #### [facility] (DEFAULT) [address] [place] [address] 76627 WBC 7.8 x10 Normal 3.5-10.5 [facility] Comment on above: Performed By: #### 1 [id number], [id number] #### [facility] (DEFAULT) [address] [place] [address] 27024 Consent for COVID Vaccineon 11-30-2020 SARS-CoV-2 (COVID-19) RNA VERONA+probe Ql (Unsp spec) [id number] 0#1.00CD:127 Normal [facility] Consent for COVID Vaccineon 11-08-2020 SARS-CoV-2 (COVID-19) RNA VERONA+probe Ql (Unsp spec) [id number] 1#1.00CD:127 Normal [facility] Consent for Treatmenton 10-19 Consent for Treatment [id number] 7#1.00CD:127 [facility] Coding Summary.on 11-04-2020 Coding Summary. CODING DATE: 11/04/2020 [facility] STATUS: PAYOR: Benedict APC DESCRIPTION [employer] - Level 1B ($11-$20) ADMIT [...] Flower CphT Date Saved: 11/04/2020 08:25 am [facility] CBC AUTO DIFFon 07-30-2019 Basophils (Bld) [#/Vol] 0.1 103/ul Normal 0.0-0.1 [facility] Comment on above: Performed By: #### C BC #### [facility] [address] [place], [place] [id number] Yesenia Ella Basophils/100 WBC (Bld) 0.8 % Normal 0.2-2.0 [facility] Comment on above: Performed By: #### C BC #### [facility] [address] [place], [place] [address] Yesenia Ella Eosinophils (Bld) [#/Vol] 0.4 103/ul Normal 0.0-0.7 [facility] Comment on above: Performed By: #### C BC #### [facility] [address] [place], [place] [address] Yesenia Ella Eosinophils/100 WBC (Bld) 6.0 % Normal 0.9-7.0 [facility] Comment on above: Performed By: #### C BC #### [facility] [address] [place], [place] [address] Yesenia Ella Erythrocyte distribution width (RBC) [Ratio] 13.6 % Normal 11.0-15.0 [facility] Comment on above: Performed By: #### C BC #### [facility] [address] [place], [place] [address] Yesenia Ella Hematocrit (Bld) [Volume fraction] 44.6 % Normal 42.0-54.0 [facility] Comment on above: Performed By: #### C BC #### [facility] [address] [place], [place] [address] Yesenia Ella Hemoglobin (Bld) [Mass/Vol] 15.2 g/dL Normal 14.0-18.0 [facility] Comment on above: Performed By: #### C BC #### [facility] [address] [place], [place] [address] Yesenia Ella IG # 0.02 10e3/ul Normal 0.00-0.03 [facility] Comment on above: Performed By: #### C BC #### [facility] [address] [place], [place] [address] Yesenia Ella IG % 0.3 % Normal 0.0-0.5 [facility] Comment on above: Performed By: #### C BC #### [facility] [address] [place], [place] [address] Yesenia Ella Lymphocytes (Bld) [#/Vol] 1.9 103/ul Normal 1.2-3.8 [facility] Comment on above: Performed By: #### C BC #### [facility] [address] [place], [place] [address] Yesenia Ella Lymphocytes/100 WBC (Bld) 31.7 % Normal 20.5-60.0 [facility] Comment on above: Performed By: #### C BC #### [facility] [address] [place] [address] Yesenia Ella MANUAL DIFF REQ NO Normal [facility] Comment on above: Performed By: #### C BC #### [facility] [address] [place] [address] Yesenia Ella MCH (RBC) [Entitic mass] 27.9 pg Normal 25.9-34.0 [facility] Comment on above: Performed By: #### C BC #### [facility] [address] [place] [address] Yesenia Ella MCHC (RBC) [Mass/Vol] 34.1 g/dL Normal 29.9-35.2 [facility] Comment on above: Performed By: #### C BC #### [facility] [address] [place], [place] [address] Yesenia Ella MCV (RBC) [Entitic vol] 82.0 fL Normal 80.0-94.0 [facility] Comment on above: Performed By: #### C BC #### [facility] [address] [place] [address] Yesenia Ella Monocytes (Bld) [#/Vol] 0.5 103/ul Normal 0.3-0.8 [facility] Comment on above: Performed By: #### C BC #### [facility] [address] [place] [address] Yesenia Ella Monocytes/100 WBC (Bld) 8.5 % Normal 1.7-12.0 [facility] Comment on above: Performed By: #### C BC #### [facility] [address] [place], [place] [address] Yesenia Ella Neutrophils (Bld) [#/Vol] 3.2 103/ul Normal 1.4-6.5 [facility] Comment on above: Performed By: #### C BC #### [facility] [address] [place], [place] [address] Yesenia Ella Neutrophils/100 WBC (Bld) 52.7 % Normal 43.0-75.0 [facility] Comment on above: Performed By: #### C BC #### [facility] [address] [place], [place] [address] Yesenia Ella Platelet mean volume (Bld) [Entitic vol] 9.0 fL Critically low 9.5-13.5 [facility] Comment on above: Performed By: #### C BC #### [facility] [address] [place], [place] [address] Yesenia Ella Platelets (Bld) [#/Vol] 185 103/ul Normal 150-450 [facility] Comment on above: Performed By: #### C BC #### [facility] [address] [place], [place] [address] Yesenia Ella RBC (Bld) [#/Vol] 5.44 106/ul Normal 4.70-6.10 [facility] Comment on above: Performed By: #### C BC #### [facility] [address] [place], [place] [address] Yesenia Ella WBC (Bld) [#/Vol] 6.0 103/ul Normal 4.0-11.0 [facility] Comment on above: Performed By: #### C BC #### [facility] [address] [place], [place] [address] ABD/PELVIS W CONon 2018 CT ABD/PELVIS W CON Patient: MAHESH GONZALEZ Exam Date: 07/30/2019 : 1955 Gender:M Ordering : DR. RENE BENNETT M.D. Admission #: [id number] Family : Order #: [id number] CLICK HERE TO VIEW EXAM RADIOLOGY REPORT [...] M.D. on 07/30/2019 at 07:43 Normal [facility] ER URINE PROFILEon 9 Bilirubin [Mass/Vol] Negative Normal NEGATIVE [facility] Comment on above: Performed By: #### E RUR #### [facility] [address] [place] [address] Yesenia Ella BLOOD Negative Normal NEGATIVE [facility] Comment on above: Performed By: #### E RUR #### [facility] [address] [place] [phone] Yesenia Ella Clarity (U) CLEAR Normal [facility] Comment on above: Performed By: #### E RUR #### [facility] [address] [place], [place] [address] Yesenia Ella Color (U) LT. YELLOW Normal YELLOW [facility] Comment on above: Performed By: #### E RUR #### [facility] [address] [place], [place] [address] Yesenia Ella ERUAHD A micrscopic examination will be performed if indicated. Normal [facility] Comment on above: Performed By: #### E RUR #### [facility] [address] [place], [place] [address] Yesenia Ella Glucose [Mass/Vol] >1000 Normal NEGATIVE [facility] Comment on above: Performed By: #### E RUR #### [facility] [address] [place] [address] Yesenia Ella Ketones Ql (U) Negative Normal NEGATIVE [facility] Comment on above: Performed By: #### E RUR #### [facility] [address] [place] [address] Yesenia Ella Nitrite Ql (U) Negative Normal NEGATIVE [facility] Comment on above: Performed By: #### E RUR #### [facility] [address] [place] [address] Yesenia Ella pH (Bld) 6.0 Normal 5-9 [facility] Comment on above: Performed By: #### E RUR #### [facility] [address] [place] [address] Yesenia Ella Protein (U) [Mass/Vol] Negative Normal [facility] Comment on above: Performed By: #### E RUR #### [facility] [address] [place] [address] Yesenia Ella SPEC GRAVITY <=1.005 Normal 1.005-<=1.02 5 [facility] Comment on above: Performed By: #### E RUR #### [facility] [address] [place], [place] [address] Yesenia Ella UR MICRO IND NOT INDICATED Normal [facility] Comment on above: Performed By: #### E RUR #### [facility] [address] [place] [address] Yesenia Ella Urobilinogen Qn (U) 0.2 EU/dl Normal [facility] Comment on above: Performed By: #### E RUR #### [facility] [address] [place], [place] [address] Yesenia Ella WBC (Bld) [#/Vol] Negative Normal NEGATIVE [facility] Comment on above: Performed By: #### E RUR #### [facility] [address] [place], [place] [address] Yesenia Jaramillo PROF 14(COMP METB)on 019 Albumin [Mass/Vol] 3.6 g/dL Normal 3.5-5.0 [facility] Comment on above: Performed By: #### C MP #### [facility] [address] [place], [place] [address] Yesenia Jaramillo Albumin/Globulin [Mass ratio] 1.0 {ratio} Normal [facility] Comment on above: Performed By: #### C MP #### [facility] [address] [place], [place] [address] Yesenia Ella ALP [Catalytic activity/Vol] 92 U/L Normal 38-126 [facility] Comment on above: Performed By: #### C MP #### [facility] [address] [place], [place] [address] Yeseniarosendo Jaramillo ALT [Catalytic activity/Vol] 35 U/L Normal 21-72 [facility] Comment on above: Performed By: #### C MP #### [facility] [address] [place] [address] Yeseniarosendo Jaramillo Anion gap [Moles/Vol] 12.9 mmol/L Normal [facility] Comment on above: Performed By: #### C MP #### [facility] [address] [place], [place] [address] Yeseniarosendo Jaramillo AST [Catalytic activity/Vol] 30 U/L Normal 17-59 [facility] Comment on above: Performed By: #### C MP #### [facility] [address] [place], [place] [address] Yesenia Ella Bilirubin Ql (U) 0.4 mg/dL Normal 0.2-1.3 [facility] Comment on above: Performed By: #### C MP #### [facility] [address] [place] [phone] Yesenia Ella Calcium [Mass/Vol] 9.0 mg/dL Normal 8.4-10.2 [facility] Comment on above: Performed By: #### C MP #### [facility] [address] [place] [phone] Yesenia Ella Chloride [Moles/Vol] 102 mmol/L Normal 98-107 [facility] Comment on above: Performed By: #### C MP #### [facility] [address] [place] [address] Yesenia Ella CO2 [Moles/Vol] 27.5 mmol/L Normal 22.0-30.0 [facility] Comment on above: Performed By: #### C MP #### [facility] [address] [place] [address] Yesenia Ella Creatinine [Mass/Vol] 1.06 mg/dL Normal 0.66-1.25 [facility] Comment on above: Performed By: #### C MP #### [facility] [address] [place] [phone] Yesenia Ella EGFR-AF IRANIAN >60 Normal >=60 [facility] Comment on above: Performed By: #### C MP #### [facility] [address] [place], [place] [address] Yesenia Ella EGFR-NON AF IRANIAN >60 Normal >=60 [facility] Comment on above: Performed By: #### C MP #### [facility] [address] [place] [phone] Yesenia Ella Globulin (S) [Mass/Vol] 3.5 g/dL Normal [facility] Comment on above: Performed By: #### C MP #### [facility] [address] [place] [phone] Yesenia Ella Glucose [Mass/Vol] 209 mg/dL Critically high 74-106 [facility] Comment on above: Performed By: #### C MP #### [facility] [address] [place] [address] Yesenia Ella Potassium [Moles/Vol] 3.4 mmol/L Normal 3.4-5.0 [facility] Comment on above: Performed By: #### C MP #### [facility] [address] [place] [address] Yesenia Ella Protein [Mass/Vol] 7.1 g/dL Normal 6.1-8.2 [facility] Comment on above: Performed By: #### C MP #### [facility] [address] [place], [place] [address] Yesenia Ella Sodium [Moles/Vol] 139 mmol/L Normal 137-145 [facility] Comment on above: Performed By: #### C MP #### [facility] [address] [place], [place] [address] Yesenia Ella Urea nitrogen [Mass/Vol] 16.0 mg/dL Normal 9.0-20.0 [facility] Comment on above: Performed By: #### C MP #### [facility] [address] [place] [phone] Yesenia Ella Urea nitrogen/Creatinine [Mass ratio] 15.1 mg/mg Normal [facility] Comment on above: Performed By: #### C MP #### [facility] [address] [place], [place] [address] Yesenia Ella Vital Signs Date Time Vital Sign Value Performing Clinician Facility 03-17-2025 13: Body height 177.8 cm Roxy Ferrera MD Work Phone: [facility] 03-17-2025 13:040 Body mass index (BMI) [Ratio] 37.74 kg/m2 Roxy Ferrera MD Work Phone: [facility] 03-17-2025 13:040 Body weight 119.3 kg Roxy Ferrera MD Work Phone: [facility] 03-17-2025 13:09040 Diastolic blood pressure 72 mm[Hg] Roxy Ferrera MD Work Phone: [facility] 03-17-2025 13:040 Heart rate 67 /min Roxy Ferrera MD Work Phone: [facility] 03-17-2025 13:09-0400 SaO2% (BldA) [Mass fraction] 98 % Roxy Ferrera MD Work Phone: [facility] 03-17-2025 13:09-0400 Systolic blood pressure 128 mm[Hg] Roxy Ferrera MD Work Phone: [facility] 12-16-2024 13:57-0400 Body height 177.8 cm Roxy Ferrera MD Work Phone: [facility] 12-16-2024 13:57-0400 Body mass index (BMI) [Ratio] 37.31 kg/m2 Roxy Ferrera MD Work Phone: [facility] 12-16-2024 13:57-0400 Body weight 117.94 kg Roxy Ferrera MD Work Phone: [facility] 12-16-2024 13:57-0400 Diastolic blood pressure 82 mm[Hg] Roxy Ferrera MD Work Phone: [facility] 12-16-2024 13:57-0400 Heart rate 63 /min Roxy Ferrera MD Work Phone: [facility] 12-16-2024 13:57-0400 SaO2% (BldA) [Mass fraction] 95 % Roxy Ferrera MD Work Phone: [facility] 12-16-2024 13:57-0400 Systolic blood pressure 128 mm[Hg] Roxy Ferrera MD Work Phone: [facility] 10-21-2024 13:41-0500 Body height 177.8 cm Roxy Ferrera MD Work Phone: [facility] 10-21-2024 13:41-0500 Body mass index (BMI) [Ratio] 37.16 kg/m2 Roxy Ferrera MD Work Phone: [facility] 10-21-2024 13:41-0500 Body weight 117.48 kg Roxy Ferrera MD Work Phone: [facility] 10-21-2024 13:41-0500 Diastolic blood pressure 82 mm[Hg] Roxy Ferrera MD Work Phone: [facility] 10-21-2024 13:41-0500 Heart rate 64 /min Roxy Ferrera MD Work Phone: [facility] 10-21-2024 13:41-0500 SaO2% (BldA) [Mass fraction] 98 % Roxy Ferrera MD Work Phone: [facility] 10-21-2024 13:41-0500 Systolic blood pressure 120 mm[Hg] Roxy Ferrera MD Work Phone: [facility] 07-22-2024 13:06-0500 Body height 177.8 cm Roxy Ferrera MD Work Phone: [facility] 07-22-2024 13:06-0500 Body mass index (BMI) [Ratio] 37.59 kg/m2 Roxy Ferrera MD Work Phone: [facility] 07-22-2024 13:06-0500 Body weight 118.84 kg Roxy Ferrera MD Work Phone: [facility] 07-22-2024 13:06-0500 Diastolic blood pressure 72 mm[Hg] Roxy Ferrera MD Work Phone: [facility] 07-22-2024 13:06-0500 Heart rate 69 /min Roxy Ferrera MD Work Phone: [facility] 07-22-2024 13:06-0500 SaO2% (BldA) [Mass fraction] 97 % Roxy Ferrera MD Work Phone: [facility] 07-22-2024 13:06-0500 Systolic blood pressure 136 mm[Hg] Roxy Ferrera MD Work Phone: [facility] 07-10-2024 10:00-0500 Diastolic blood pressure 64 mm[Hg] Roxy Ferrera MD Work Phone: [facility] 07-10-2024 10:00-0500 Heart rate 60 /min Roxy Ferrera MD Work Phone: [facility] 07-10-2024 10:00-0500 Respiratory rate 16 /min Roxy Ferrera MD Work Phone: [facility] 07-10-2024 10:00-0500 SaO2% (BldA) [Mass fraction] 98 % Royx Ferrera MD Work Phone: [facility] 07-10-2024 10:00-0500 Systolic blood pressure 106 mm[Hg] Roxy Ferrera MD Work Phone: [facility] 07-10-2024 08:31-0500 Body height 177.8 cm Roxy Ferrera MD Work Phone: [facility] 07-10-2024 08:31-0500 Body weight 113.39 kg Roxy Ferrera MD Work Phone: [facility] 05-20-2024 13:32-0400 Body height 177.8 cm Roxy Ferrera MD Work Phone: [facility] 05-20-2024 13:32-0400 Body mass index (BMI) [Ratio] 36.88 kg/m2 Roxy Ferrera MD Work Phone: [facility] 05-20-2024 13:32-0400 Body weight 116.57 kg Roxy Ferrera MD Work Phone: [facility] 05-20-2024 13:32-0400 Diastolic blood pressure 82 mm[Hg] Roxy Ferrera MD Work Phone: [facility] 05-20-2024 13:32-0400 Heart rate 68 /min Roxy Ferrera MD Work Phone: [facility] 05-20-2024 13:32-0400 SaO2% (BldA) [Mass fraction] 95 % Roxy Ferrera MD Work Phone: [facility] 05-20-2024 13:32-0400 Systolic blood pressure 118 mm[Hg] Roxy Ferrera MD Work Phone: [facility] Encounters Encounter Date Encounter Type Care Provider Facility Start: 03-24-2025 End: 08-05-2025 Vijay Gurrola Zahler DO Work Phone: [facility] Start: 03-24-2025 End: 03-24-2025 Bamboo flowsheet Hero Duenas DO Work Phone: [facility] Start: 03-24-2025 End: 03-24-2025 ambulatory HERO DUENAS Not Available Start: 03-17-2025 End: 03-17-2025 ambulatory RUGWIN MADDENA Not Available Start: 03-17-2025 End: 03-17-2025 Office outpatient visit 25 minutes Roxy Ferrera MD Work Phone: [facility] Comment on above: Low energy (Primary Dx); Type 2 diabetes mellitus with other circulatory complications (HCC); Type 2 diabetes mellitus without complication, with long-term current use of insulin (HCC); Other fatigue Start: 12-16-2024 End: 12-16-2024 Office outpatient visit 25 minutes Roxy Ferrera MD Work Phone: [facility] Comment on above: Pes planus of both f eet (Primary Dx); Achilles tendinitis of left lower extremity; Thumb pain, left; Onychomycosis Start: 12-16-2024 End: 12-16-2024 ambulatory ROXY FERRERA Not Available Start: 11-11-2024 End: 11-11-2024 ambulatory SANDRA Nini HOROWITZ Not Available Start: 11-04-2024 End: 11-04-[address] [facility] Start: 10-21-2024 End: 10-21-2024 Bamboo flowsheet Roxy Ferrera MD Work Phone: [facility] Start: 10-21-2024 End: 10-21-2024 Bamboo flowsheet Roxy Ferrera MD Work Phone: [facility] Start: 10-21-2024 End: 10-21-2024 ambulatory ROXY FERRERA Not Available Start: 10-21-2024 End: 10-21-2024 Assay of hemosiderin, quant Roxy Ferrera MD Work Phone: [facility] Start: 10-21-2024 End: 10-21-2024 Patient encounter procedure Roxy Ferrera MD Work Phone: [facility] Comment on above: Routine general medi luther examination at [facility] care facility (Primary Dx); Medicare annual wellness visit, initial; Pure hypertriglyceridemia (CMS/HCC); Type 2 diabetes mellitus with other specified complication, with long-term current use of insulin (CMS/HCC); Type 2 diabetes mellitus with other circulatory complications (CMS/HCC); Morbid (severe) obesity due to excess calories (CMS/HCC); Unspecified osteoarthritis, unspecified site; Body mass index (BMI) 37.0-37.9, adult; Ankylosing spondylitis of unspecified sites in spine (CMS/HCC); Type 2 diabetes mellitus with diabetic cataract (CMS/HCC); Type 2 diabetes mellitus with other specified complication (CMS/HCC); Male erectile dysfunction, unspecified; Encounter for surveillance of abnormal nevi Start: 10-16-2024 End: 10-22-2024 Clinisync Result Encounter Generic External Data Provider [facility] Unsolicited Start: 10-16-2024 End: 10-22-2024 Clinisync Result Encounter Generic External Data Provider [facility] External [facility] Unsolicited Start: 09-16-2024 End: 09-16-2024 ambulatory HERO DUENAS Not Available Start: 07-29-2024 End: 07-29-2024 ambulatory [facility] Start: 07-22-2024 End: 07-22-2024 Office outpatient visit 25 minutes Roxy Ferrera MD Work Phone: [facility] Comment on above: Tubular adenoma of c olon (Primary Dx); Type 2 diabetes mellitus with other specified complication, with long-term current use of insulin (CMS/HCC); Hypertension associated with diabetes (HCC) (CMS/HCC) Start: 07-22-2024 End: 07-22-2024 ambulatory ROXY FERRERA Not Available Start: 07-10-2024 Non-patient / Non-visit Roxy Ferrera MD Work Phone: [facility] Gastro[facility]ology Work Phone: Start: 07-10-2024 End: 07-10-2024 Admission to same day surgery center Roxy Ferrera MD Work Phone: [facility] Work Phone: Start: 07-10-2024 End: 07-10-2024 ambulatory Roxy Ferrera MD Work Phone: [facility] Work Phone: Start: 07-07-2024 End: 07-07-2024 Clinisync Result Encounter Generic External Data Provider [facility] External Department Unsolicited Start: 07-07-2024 End: 07-07-2024 Clinisync Result Encounter Generic External Data Provider [facility] External [facility] Unsolicited Start: 05-27-2024 End: 05-27-2024 Telephone encounter Roxy Ferrera MD Work Phone: [facility] Comment on above: Med Refill (Pt needs Toujeo Insulin pen sent to [facility] mail in and would like 90 days [...] Not Available Start: 04-29-2024 End: 04-29-2024 ambulatory [facility] Start: 10-22-2023 Patient encounter procedure Francois Ferrera MD Work Phone: [facility] Start: 07-30-2019 End: 07-30-2019 Patient encounter procedure ROXY FERRERA Facility:[facility] Start: 06-05-2019 End: 06-06-2019 Patient encounter procedure CRISTINA COURTNEY Facility:[facility] Procedures Date Procedure Procedure Detail Performing Clinician Start: 03-24-2025 Visual field xm uni/ bi w/interp extended exam Hero Duenas DO Work Phone: Start: 03-24-2025 End: 03-24-2025 [facility]&eval comprhnsv estab pt 1/> Primary open angle glaucoma (POAG) of both eyes, mild stage Hero Duenas DO Work Phone: Comment on above: Primary open angle g laucoma (POAG) of both eyes, mild stage (Primary Dx); Type 2 diabetes mellitus without complication, without long-term current use of insulin (HCC); Age-related nuclear cataract of both eyes; Dry eyes Start: 03-17-2025 Hemoglobin glycosyla anant a1c Roxy Ferrera MD Work Phone: Start: 10-21-2024 Hemoglobin glycosyla anant a1c Roxy Ferrera MD Work Phone: Start: 10-16-2024 ALL ESTRONE(E1) Generic External Data Provider Start: 10-16-2024 METRO SEX BINDING HORMONE (SHBG), TESTOSTERONE, FREE AND BIOAVAILABLE Generic External Data Provider Start: 10-16-2024 [facility] TESTOSTERONE FREE/TOT EQUILIB Generic External Data Provider Start: 09-16-2024 Computerized ophthal hilaria imaging optic nerve Hero Duenas DO Work Phone: Start: 09-16-2024 End: 09-16-2024 [facility]&al comprhnsv estab pt 1/> Primary open angle glaucoma (POAG) of both eyes, mild stage (CMS/HCC) Hero Duenas DO Work Phone: Comment on above: Primary open angle g laucoma (POAG) of both eyes, mild stage (CMS/HCC) (Primary Dx); Type 2 diabetes mellitus without complication, without long-term current use of insulin (CMS/HCC); Age-related nuclear cataract of both eyes; Dry eyes Start: 07-10-2024 Screening colonoscopy R paco Ferrera MD Work Phone: Start: 07-10-2024 Colonoscopy Generic Pr ovider Start: 07-07-2024 ALL CBC WITH AUTO DIFF Generic External Data Provider Start: 07-07-2024 [facility] CMP (CMP) (FOR REMOTE [facility] USE) Generic External Data Provider Start: 07-07-2024 METRO SEX BINDING HORMONE (SHBG), TESTOSTERONE, FREE AND BIOAVAILABLE Generic External Data Provider Start: 05-20-2024 Hemoglobin glycosyla anant a1c Roxy Ferrera MD Work Phone: Start: 06-05-2019 [object Object] CRISTINA COURTNEY Comment on above: Performed By: #### P SAD #### [facility] [address] [place] [address] Yesenia Diopen Start: 05-15-2014 Colonoscopy Roxy Ferrera MD Work Phone: Plan of Treatment Date Care Activity Detail Author Start: 07-10-2029 Screening for malignant neoplasm of colon [facility] Start: 03-24-2027 Glaucoma screening Diabetes: Retinopathy Screening [facility] Start: 09-16-2026 Glaucoma screening Diabetes: Retinopathy Screening [facility] Start: 03-07-2026 Glaucoma screening Diabetes: Retinopathy Screening [facility] Start: 10-21-2025 Medicare Annual Wellness (AWV) Medicare Annual Wellness (AWV) [facility] Start: 07-22-2025 Urine screening for protein Diabetes: Urine Protein Screening [facility] Start: 07-20-2025 End: 07-20-2025 Patient encounter procedure 07/20/2025 1:00 PM EST [facility] [place] [facility] [address] [facility] [address] [place] [phone] Roxy Ferrera MD [address] [facility] [address] [place] [address] [facility] [place] [facility] Start: 07-10-2025 Pneumococcal Vaccine: 65+ Years (1 of 2 - PCV) Pneumococcal Vaccine: 65+ Years (1 of 2 - PCV) [facility] Comment on above: Postponed from 11/25/1963 (Patient Refus ed) Postponed from 11/24 (Patient Refused) Start: 06-17-2025 Hemoglobin A1c measurement Diabetes: Hemoglobin A1C [facility] Start: 04-20-2025 Influenza vaccination Influenza Vaccine (#1) [facility] Start: 03-24-2025 End: 03-24-2025 Patient encounter procedure [facility] Comment on above: Arrived Start: 01-21-2025 Hemoglobin A1c measurement Diabetes: Hemoglobin A1C [facility] Start: 10-21-2024 End: 10-21-2025 Lipid 1996 panel - Serum or Plasma Lipid panel Lab Routine Medicare annual wellness visit, initial Pure hypertriglyceridemia (CMS/HCC) Expected: 10/21/2024 (Approximate), Expires: 10/21/2025 [facility] Work Phone: Comment on above: Expected: 10/21/2024 (Approximate), Expi res: 10/21/2025 Start: 10-21-2024 Medicare Annual Wellness (AWV) Medicare Annual Wellness (AWV) [facility] Start: 10-21-2024 Urine screening for protein Diabetes: Urine Protein Screening [facility] Start: 10-20-2024 End: 10-20-2024 Patient encounter procedure 10/20/2024 9:30 AM EST Office Visit [facility] [address] [place] [phone] Roxy Ferrera MD [address] [place] [address] [facility] Start: 09-16-2024 End: 09-16-2024 Patient encounter procedure 09/16/2024 9:45 AM EST Office Visit [facility] [address] [place] [phone] Hero Duenas DO [address] [place] [address] [facility] Start: 08-26-2024 End: 08-26-2024 Patient encounter procedure 08/26/2024 10:00 AM EST Office Visit [facility] [address] [place] [address] Roxy Ferrera MD [address] [place] [address] [facility] Start: 08-20-2024 Hemoglobin A1c measurement Diabetes: Hemoglobin A1C [facility] Start: 07-23-2024 Urine screening for protein Diabetes: Urine Protein Screening [facility] Start: 07-22-2024 End: 07-22-2025 Microalbumin/Creatini ne panel in random Urine Microalbumin / creatinine urine ratio Lab Routine Type 2 diabetes mellitus with other specified complication, with long-term current use of insulin ([facility]) Expected: 07/22/2024 (Approximate), Expires: 07/22/2025 [facility] Work Phone: Comment on above: Expected: 07/22/2024 (Approximate), Expi res: 07/22/2025 Start: 07-22-2024 End: 07-22-2024 Patient encounter procedure 07/22/2024 1:00 PM EST Office Visit [facility] [address] [facility] [address] [place] [phone] Roxy Ferrera MD [address] [facility] [address] [place] [address] [facility] Start: 07-10-2024 [facility] Start: 05-15-2024 Screening for malignant neoplasm of colon [facility] Start: 11-25-1961 Pneumococcal Vaccine: 65+ Years (1 of 2 - PCV) Pneumococcal Vaccine: 65+ Years (1 of 2 - PCV) [facility] Start: 1955 Screening for malignant neoplasm of colon [facility] Patient Education Hemorrhoids (D C) Colon Polypectomy (DC) Know your Meds [facility] Work Phone: Immunizations Immunization Date Immunization Notes Care Provider Fa cili 06-03-2024 RSV, recombinant, pr otein subunit RSVpreF, adjuvant reconstitu, 120mcg/0.5mL, PF (Arexvy) Generic Provider [facility] 05-01-2024 influenza, high dose seasonal, preservative-free Roxy Ferrera MD Work Phone: [facility] 05-01-2024 influenza virus vacc ine, unspecified formulation Roxy Ferrera MD Work Phone: [facility] 05-09-2023 Influenza, Seasonal, Quadrivalent, Adjuvanted Roxy Ferrera MD Work Phone: [facility] 05-09-2023 SARS-COV-2 (COVID-19 ) vaccine, mRNA, spike protein, LNP, PF, dione-sucrose, 30 mcg/0.3 mL Roxy Ferrera MD Work Phone: [facility] 06-05-2022 influenza, injectabl e, quadrivalent, preservative free Roxy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 specific goals, for your hypertension, is [...] no history of angina, kidney disease or CAD/ME. Current Outpatient Medications on File Prior to [...] insulin pen needle 32G x 6 mm [facility] Use as instructed 100 each 12 irbesartan [...] Glucose Test test strip TRUEplus Lancets 33G [facility] [place] No current facility-administered medications on file prior [...] urine ratio Hypertension associated with diabetes (HCC) (CMS/HCC) Our specific goals, for your hypertension, [...] 10/20/2024) for Diabetes. documented in this encounter [facility] 07-10-2024 History and physi luther note [facility] 07-10-2024 Procedure note [facility] 05-27-2024 Telephone encounter Note Needs Zulma [facility] 05-27-2024 Miscellaneous Notes Needs Zulma documented in this encounter [facility] 05-20-2024 History of Present illness Narrative Associated Problem(s): Hypertension associated with diabetes (HCC) (CMS/HCC) Continue current meds Associated Problem(s): Diabetes mellitus (CMS/HCC) No Tobacco use Follow [...] no history of angina, kidney disease or CAD/ME. Current Outpatient Medications on File Prior to [...] insulin pen needle 32G x 6 mm [facility] [place] Use as instructed 100 each 12 irbesartan [...] 08/20/2024) for Diabetes. documented in this encounter [facility] 04-29-2024 Note Urology Clinic H&P Dr. Olive [...] fatigue. BPH score today was 3 and SAVANNAH was 21. Most recent labs: 03/25/2024 Testosterone [...] obtaining erections, onset: years ago severity: severe SAVANNAH score: N/A Associated s/s: no curvature or [...] Types: Cigarettes Quit date: 2003 Years since quittin.7 Smokeless tobacco: Never Substance [...] on file Intimate Partner Violence: Unknown (02/11/2024) [place] Safety & Environment Fear of Current or Ex-Partner: Not on file Emotionally Abused: Not on file Physically Abused: Not on file Sexually Abused: Not on file Physically or Sexually Abused: Not on file (more content not included)... [facility] 02-23-2021 Note [id number]#1.00[facility] 02-10-2021 Note [id number]#1.00[facility] 02-09-2021 Note [id number] 02-08-2021 Note [facility] SURGERY Clinical Discharge Summary PERSON INFORMATION Name MAHESH GONZALEZ Age 65 Years 1955 Sex MALE Language Pashto PCP ROXY FERRERA MD Marital Status Med Service Ambulatory Surgery Acct# Arrival 02/08/2021 06:03:15 Visit Reason SURGERY - UROLIFT Acuity LOS 104 21:51 Address: [address] [place] [address] Comment: PROVIDER INFORMATION VITALS INFORMATION Vital Sign [...] up: With: Ad (more content not included)... [facility] Evaluation note Diagnosis Benign essential hypertension (CMS/HCC)- Primary Essential hypertension, benign Screen for colon cancer Special screening for malignant neoplasms, colon Type 2 diabetes mellitus with other specified complication, with long-term current use of insulin (CMS/HCC) Hypertension associated with diabetes (HCC) (CMS/HCC) Unspecified essential hypertension documented in this encounter [facility] HealthcareEvaluation note* Diagnosis Type 2 diabetes mellitus without complication, with long-term current use of insulin (CMS/HCC) documented in this encounter [facility] HealthcareEvaluation noteNo assessment information availableOhio[facility] Work Phone: Evaluation note* Diagnosis Benign essential hypertension (CMS/HCC)- Primary Essential hypertension, benign Type 2 diabetes mellitus without complication, unspecified whether computer terminal operator insulin use (CMS/HCC) Pure hypercholesterolemia (CMS/HCC) Pure [...] cataract, with long-term current use of insulin ([facility]/HCC) Type 2 diabetes mellitus with other specified complication, with long-term current use of insulin ([facility]/HCC) Erectile dysfunction, unspecified erectile dysfunction type Impotence of organic origin Benign essential hypertension (CMS/HCC)- Primary Essential hypertension, benign Type 2 diabetes mellitus with other specified complication, with long-term current use of insulin (CMS/HCC) Atherosclerosis of elem coronary artery of elem heart without angina pectoris (CMS/HCC) Hypertension due [...] Unspecified essential hypertension documented in this encounter [facility] HealthcareEvaluation note* Diagnosis Benign essential hypertension (CMS/HCC)- Primary Essential hypertension, benign Type 2 diabetes mellitus without complication, unspecified whether computer terminal operator insulin use (CMS/HCC) Pure hypercholesterolemia (CMS/HCC) Pure [...] current use of insulin (CMS/HCC) Atherosclerosis of elem coronary artery of elem heart without angina pectoris (CMS/HCC) Hypertension due [...] film insufficiency documented in this encounter [facility]* Diagnosis Benign essential hypertension (CMS/HCC)- Primary Essential hypertension, benign Type 2 diabetes mellitus without complication, unspecified whether computer terminal operator insulin use (CMS/HCC) Pure hypercholesterolemia (CMS/HCC) Pure hypercholesterolemia Benign essential hypertension (CMS/HCC)- Primary Essential hypertension, benign Type 2 diabetes mellitus without complication, with long-term current use of insulin (/HCC) Routine general medical examination at health care [...] current use of insulin (CMS/HCC) Atherosclerosis of elem coronary artery of elem heart without angina pectoris (CMS/HCC) Hypertension due [...] with diabetes (HCC) (CMS/HCC) Unspecified essential hypertension Routine general medical examination at health care facility- Primary Routine general medical examination at a health care facility Medicare annual wellness visit, initial Pure hypertriglyceridemia (CMS/HCC) Type 2 diabetes mellitus with other specified complication, with long-term current use of insulin (CMS/HCC) Type 2 diabetes mellitus with other circulatory complications (CMS/HCC) Morbid (severe) obesity due to excess calories (CMS/HCC) Unspecified osteoarthritis, unspecified site Body mass index (BMI) 37.0-37.9, adult Ankylosing spondylitis of unspecified sites in spine (CMS/HCC) Type 2 diabetes mellitus with diabetic cataract (CMS/HCC) Type II or unspecified type diabetes mellitus with ophthalmic manifestations, not stated as uncontrolled Type 2 diabetes mellitus with other specified complication (CMS/HCC) Male erectile dysfunction, unspecified Encounter for surveillance of abnormal nevi documented in this encounter [facility] HealthcareEvaluation note* Diagnosis Benign essential hypertension (CMS/HCC)- Primary Essential hypertension, benign Type 2 diabetes mellitus without complication, unspecified whether computer terminal operator insulin use Pure hypercholesterolemia (CMS/HCC) Pure hypercholesterolemia Benign essential hypertension (CMS/HCC)- Primary Essential hypertension, benign Type 2 diabetes mellitus without complication, with long-term current use of insulin Routine general medical examination at health care facility- Primary Routine general medical examination at a health care facility Abnormal glucose tolerance test Impaired glucose tolerance test Benign essential hypertension (CMS/HCC) Essential hypertension, benign Nocturia Type 2 diabetes mellitus without complication, with long-term current use of insulin Pure hypercholesterolemia (CMS/HCC) Pure hypercholesterolemia Pure hypertriglyceridemia (CMS/HCC) Medicare annual wellness visit, initial Type 2 diabetes mellitus with diabetic cataract, with long-term current use of insulin ([facility]/HCC) Type 2 diabetes mellitus with other specified complication, with long-term current use of insulin Erectile dysfunction, unspecified erectile dysfunction type Impotence of organic origin Benign essential hypertension ([facility]/HCC)- Primary Essential hypertension, benign Type 2 diabetes mellitus with other specified complication, with long-term current use of insulin Atherosclerosis of elem coronary artery of elem heart without angina pectoris ([facility]) Hypertension due to endocrine disorder ([facility]) Benign essential hypertension ([facility]/HCC)- Primary Essential hypertension, benign Screen for colon cancer Special screening for malignant neoplasms, colon Type 2 diabetes mellitus with other specified complication, with long-term current use of insulin Hypertension associated with diabetes (HCC) ([facility]) Unspecified essential hypertension Tubular adenoma of colon- Primary Benign neoplasm of colon Type 2 diabetes mellitus with other specified complication, with long-term current use of insulin Hypertension associated with diabetes (HCC) ([facility]) Unspecified essential hypertension Routine general medical examination at health care facility- Primary Routine general medical examination at a health care facility Medicare annual wellness visit, initial Pure hypertriglyceridemia ([facility]) Type 2 diabetes mellitus with other specified complication, with long-term current use of insulin Type 2 diabetes mellitus with other circulatory complications Morbid (severe) obesity due to excess calories ([facility]) Unspecified osteoarthritis, unspecified site Body mass index (BMI) 37.0-37.9, adult Ankylosing spondylitis of unspecified sites in spine ([facility]) Type 2 diabetes mellitus with diabetic cataract ([facility]) Type II or unspecified type diabetes mellitus with ophthalmic manifestations, not stated as uncontrolled Type 2 diabetes mellitus with other specified complication Male erectile dysfunction, unspecified Encounter for surveillance of abnormal nevi Pes planus of both feet- Primary Achilles tendinitis of left lower extremity Thumb pain, left Onychomycosis Dermatophytosis of nail documented in this encounter [facility]* Diagnosis Benign essential hypertension- Primary Essential hypertension, benign Type 2 diabetes mellitus without complication, unspecified whether [place] [facility] insulin use (HCC) Pure hypercholesterolemia Pure hypercholesterolemia Benign essential hypertension- Primary Essential hypertension, benign Type 2 diabetes mellitus without complication, with long-term current use of insulin (HCC) Routine general medical examination at health care facility- Primary Routine general medical examination at a health care facility Abnormal glucose tolerance test Impaired glucose tolerance test Benign essential hypertension Essential hypertension, benign Nocturia Type 2 diabetes mellitus without complication, with long-term current use of insulin (HCC) Pure hypercholesterolemia Pure hypercholesterolemia Pure hypertriglyceridemia Medicare annual wellness visit, initial Type 2 diabetes mellitus with diabetic cataract, with long-term current use of insulin (HCC) Type 2 diabetes mellitus with other specified complication, with long-term current use of insulin (HCC) Erectile dysfunction, unspecified erectile dysfunction type Impotence of organic origin Benign essential hypertension- Primary Essential hypertension, benign Type 2 diabetes mellitus with other specified complication, with long-term current use of insulin (HCC) Atherosclerosis of elem coronary artery of elem heart without angina pectoris Hypertension due to endocrine disorder Benign essential hypertension- Primary Essential hypertension, benign Screen for colon cancer Special screening for malignant neoplasms, colon Type 2 diabetes mellitus with other specified complication, with long-term current use of insulin (HCC) Hypertension associated with diabetes (HCC) Unspecified essential hypertension Tubular adenoma of colon- Primary Benign neoplasm of colon Type 2 diabetes mellitus with other specified complication, with long-term current use of insulin (HCC) Hypertension associated with diabetes (HCC) Unspecified essential hypertension Routine general medical examination at health care facility- Primary Routine general medical examination at a health care facility Medicare annual wellness visit, initial Pure hypertriglyceridemia Type 2 diabetes mellitus with other specified complication, with long-term current use of insulin (HCC) Type 2 diabetes mellitus with other circulatory complications (HCC) Morbid (severe) obesity due to excess calories ([facility]) Unspecified osteoarthritis, unspecified site Body mass index (BMI) 37.0-37.9, adult Ankylosing spondylitis of unspecified sites in spine (HCC) Type 2 diabetes mellitus with diabetic cataract (HCC) Type II or unspecified type diabetes mellitus with ophthalmic manifestations, not stated as uncontrolled Type 2 diabetes mellitus with other specified complication (HCC) Male erectile dysfunction, unspecified Encounter for surveillance of abnormal nevi Pes planus of both feet- Primary Achilles tendinitis of left lower extremity Thumb pain, left Onychomycosis Dermatophytosis of nail Low energy- Primary Type 2 diabetes mellitus with other circulatory complications (HCC) Type 2 diabetes mellitus without complication, with long-term current use of insulin (HCC) Other fatigue documented in this encounter [facility] HealthcareEvaluation note* Diagnosis Benign essential hypertension- Primary Essential hypertension, benign Type 2 diabetes mellitus without complication, unspecified whether computer terminal operator insulin use (HCC) Pure hypercholesterolemia Pure hypercholesterolemia Benign essential hypertension- Primary Essential hypertension, benign Type 2 diabetes mellitus without complication, with long-term current use of insulin (HCC) Routine general medical examination at health care facility- Primary Routine general medical examination at a health care facility Abnormal glucose tolerance test Impaired glucose tolerance test Benign essential hypertension Essential hypertension, benign Nocturia Type 2 diabetes mellitus without complication, with long-term current use of insulin (HCC) Pure hypercholesterolemia Pure hypercholesterolemia Pure hypertriglyceridemia Medicare annual wellness visit, initial Type 2 diabetes mellitus with diabetic cataract, with long-term current use of insulin (HCC) Type 2 diabetes mellitus with other specified complication, with long-term current use of insulin (HCC) Erectile dysfunction, unspecified erectile dysfunction type Impotence of organic origin Benign essential hypertension- Primary Essential hypertension, benign Type 2 diabetes mellitus with other specified complication, with long-term current use of insulin (HCC) Atherosclerosis of elem coronary artery of elem heart without angina pectoris Hypertension due to endocrine disorder Benign essential hypertension- Primary Essential hypertension, benign Screen for colon cancer Special screening for malignant neoplasms, colon Type 2 diabetes mellitus with other specified complication, with long-term current use of insulin (HCC) Hypertension associated with diabetes (HCC) Unspecified essential hypertension Tubular adenoma of colon- Primary Benign neoplasm of colon Type 2 diabetes mellitus with other specified complication, with long-term current use of insulin (HCC) Hypertension associated with diabetes (HCC) Unspecified essential hypertension Routine general medical examination at health care facility- Primary Routine general medical examination at a [facility] care facility Medicare annual wellness visit, initial Pure hypertriglyceridemia Type 2 diabetes mellitus with other specified complication, with long-term current use of insulin (HCC) Type 2 diabetes mellitus with other circulatory complications (HCC) Morbid (severe) obesity due to excess calories ([facility]) Unspecified osteoarthritis, unspecified site Body mass index (BMI) 37.0-37.9, adult Ankylosing spondylitis of unspecified sites in spine (HCC) Type 2 diabetes mellitus with diabetic cataract (HCC) Type II or unspecified type diabetes mellitus with ophthalmic manifestations, not stated as uncontrolled Type 2 diabetes mellitus with other specified complication (HCC) Male erectile dysfunction, unspecified Encounter for surveillance of abnormal nevi Pes planus of both feet- Primary Achilles tendinitis of left lower extremity Thumb pain, left Onychomycosis Dermatophytosis of nail Low energy- Primary Type 2 diabetes mellitus with other circulatory complications (HCC) Type 2 diabetes mellitus without complication, with long-term current use of insulin (HCC) Other fatigue Primary open angle glaucoma (POAG) of both eyes, mild stage- Primary Type 2 diabetes mellitus without complication, without long-term current use of insulin (HCC) Age-related nuclear cataract of both eyes Dry eyes Unspecified tear film insufficiency documented in this encounter [facility] HealthcareHistory and physical note Author Salinas Philip [facility] Note Date/Time July 10, 2024 10:13am [facility] [address] [place] [address] Gastroenterology H&P Signed Patient: Mahesh Gonzalez JR MR# : [id number] : 1955 Acct:[id number] Age/Sex: 68 / M Adm Date: 4 Loc: Room: Type: [facility] Attending Dr: Salinas Philip MD Copies to: [...] <Electronically signed by Salinas Philip MD> 07/10/24910 [facility] Work Phone: Reason for referral (narrative)* Consultation (Routine) - Pending Review Specialty Diagnoses / Procedures Referred By Contac t Referred To Contact Gastroenterology Diagnoses Screen for colon cancer Procedures MT OFFICE/OUTPATIENT NEW HIGH MDM 60 MINUTES Roxy Ferrera MD [address] [facility] [address] [place] [address] Referral ID Status Reason Start Date Expiration Date Visits Requested Visits Authorized [id number] Pending Review Specialty Services Required 05/20/2024 11/16/2024 [...] ATION 02/19/2021 [facility] DATE CREATED AUTHOR AUTHOR'S ORGANIZ ATION 02/24/2021 [facility] DATE CREATED AUTHOR AUTHOR'S ORGANIZ ATION 09/07/2021 [facility] dical Specialist DATE CREATED AUTHOR AUTHOR'S ORGANIZ ATION 07/24/2024 [facility] DATE CREATED AUTHOR AUTHOR'S ORGANIZ ATION 10/25/2024 [facility] DATE CREATED AUTHOR AUTHOR'S ORGANIZ ATION 03/26/2025 [facility] Specialists EPIC DATE CREATED AUTHOR AUTHOR'S ORGANIZ ATION 04/14/[address] [facility] Reason for Visit (unrecogniz ed section and content) Reason Comments Diabetes Last A1c was 7.1 Reason Onset Date Comments Med Refill 05/27/2024 Pt needs Toujeo Insulin pen sent to [facility] mail in and would like 90 days supply Reason Comments Diabetes Last A1c was 7.1 on 05/20/24Micro needed Hypertension Reason Comments Follow-up Glaucoma Reason Comments Medicare Annual Wellness Visit Subsequen t Reason Comments Foot Pain Reason Comments Diabetes Last 7.0 Reason Comments Glaucoma Care Teams (unrecognized sec tion and content) Natural Resources Manager Relationship Specialty Start Date End Date Roxy Ferrera MD [address] [facility] [address] [place] [address] PCP - [employer] 11/18/22 Roxy Ferrera MD [address] [facility] [address] [place] [address] PCP - General Family Medicine 03/19/23 Roxy Ferrera MD [address] [facility] [address] [place] [address] PCP - [employer] 08/20/23 Erick Barajas OD [address] [place] [id number] Referring Physician Optometry 03/11/24 Natural Resources Manager Relationship Specialty Start Date End Date Roxy Ferrera MD [address] [facility] [address] [place] [address] PCP - [employer] 11/18/22 Roxy Ferrera MD [address] [facility] [address] [place] [address] PCP - General Family Medicine 03/19/23 Roxy Ferrera MD [address] [facility] [address] [place] [address] PCP - [employer] 08/20/23 Erick Barajas, OD [address] [place] [address] Referring Physician Optometry 03/11/24 Team Status: Active [...] Other Provider Active Start: July 10, 2024 Natural Resources Manager Relationship Specialty Start Date End Date Roxy Ferrera MD [address] [facility] [address] [place] [address] PCP - [employer] 11/18/22 Roxy Ferrera MD [address] [facility] [address] [place] [address] PCP - General Family Medicine 03/19/23 Roxy Ferrera MD [address] [facility] [address] [place] [address] PCP - [employer] 08/20/23 Erick Barajas OD [address], [place] [id number] Referring Physician Optometry 03/11/24 Natural Resources Manager Relationship Specialty Start Date End Date Roxy Ferrera MD [address] [facility] [address] [place] [address] PCP - [employer] 11/18/22 Roxy Ferrera MD [address] [facility] [address] [place] [address] PCP - General Family Medicine 03/19/23 Roxy Ferrera MD [address] [facility] [address] [place] [address] PCP - [employer] 08/20/23 Erick Barajas OD [address] [place] [phone] Referring Physician Optometry 03/11/24 Natural Resources Manager Relationship Specialty Start Date End Date Roxy Ferrera MD [address] [facility] [address] [place] [address] PCP - [employer] 11/18/22 Roxy Ferrera MD [address] [facility] [address] [place] [address] PCP - General Family Medicine 03/19/23 Roxy Ferrera MD [address] [facility] [address] [place] [address] PCP - [employer] 08/20/23 Erick Barajas OD [address] [place] [address] Referring Physician Optometry 03/11/24 Natural Resources Manager Relationship Specialty Start Date End Date Roxy Ferrera MD [address] [facility] [address] [place] [address] PCP - [employer] 11/18/22 Roxy Ferrera MD [address] [facility] [address] [place] [address] PCP - General Family Medicine 03/19/23 Roxy Ferrera MD [address] [facility] [address] [place] [address] PCP - [employer] 08/20/23 Erick Barajas OD [address] [place] [address] Referring Physician Optometry 03/11/24 Natural Resources Manager Relationship Specialty Start Date End Date Roxy Ferrera MD [address] [facility] [address] [place] [address] PCP - [employer] 11/18/22 Roxy Ferrera MD [address] [facility] [address] [place] [address] PCP - General Family Medicine 03/19/23 Roxy Ferrera MD [address] [facility] [address] [place] [address] PCP - [employer] 08/20/23 Erick Barajas OD [address] [facility] [place] [address] Referring Physician Optometry 03/11/24 Natural Resources Manager Relationship Specialty Start Date End Date Roxy Ferrera MD [address] [facility] [address] [place] [address] PCP - [employer] 11/18/22 Roxy Ferrera MD [address] [facility] [address] [place] [address] PCP - General Family Medicine 03/19/23 Roxy Ferrera MD [address] [facility] [address] [place] [address] PCP - [employer] 08/20/23 Erick Barajas OD [address] [place] [address] Referring Physician Optometry 03/11/24 Natural Resources Manager Relationship Specialty Start Date End Date Roxy Ferrear MD [address] [facility] [address] [place] [address] PCP - General Family Medicine 03/19/23 Roxy Ferrera MD [address] [facility] [address] [place] [address] PCP - [employer] 08/20/23 Erick Barajas OD [address] [place] [address] Referring Physician Optometry 03/11/24 Natural Resources Manager Relationship Specialty Start Date End Date Roxy Ferrera MD [address] [facility] [address] [place] [address] PCP - General Family Medicine 03/19/23 Roxy Ferrera MD [address] [facility] [address] [place] [address] PCP - [employer] 08/20/23 Erick Barajas, VLADISLAV [address] [place] [address] Referring Physician Optometry 03/11/24 Natural Resources Manager Relationship Specialty Start Date End Date Roxy Ferrera MD [address] [facility] [address] [place] [address] PCP - General Family Medicine 03/19/23 Roxy Ferrera MD [address] [facility] [address] [place] [address] PCP - [employer] 08/20/23 Erick Barajas OD [address] [place] [address] Referring Physician Optometry 03/11/24 Natural Resources Manager Relationship Specialty Start Date End Date Roxy Ferrera MD [address] [facility] [address] [place] [address] PCP - General Family Medicine 03/19/23 Roxy Ferrera MD [address] [facility] [address] [place] [address] PCP - [employer] 08/20/23 Erick Barajas OD [address], [place] [id number] Referring Physician Optometry 03/11/24 FOR RECORDS PERTAINING [...] BE BASED ON THE PRIMARY CLINICAL RECORDS. [facility] [employer] [facility]. provides no warranty or guarantee of the accuracy or completeness of information in this document.
[2025-05-11 11:27] LABS: Hematocrit 46.2 % (42.0-54.0); Hemoglobin 15.5 g/dL (14.0-18.0); Immature Granulocytes Abs Auto 0.02 10^3/uL (0.00-0.03); Immature Granulocytes Pct Auto 0.3 % (0.0-0.5); Lymphocytes Absolute Auto 1.7 10^3/uL (1.2-3.8); Mean Corpuscular HGB Conc 33.5 g/dL (29.9-35.2); Mean Corpuscular Hemoglobin 27.7 pg (25.9-34.0); Mean Corpuscular Volume 82.6 fL (80.0-94.0); Platelet Count 218 10^3/uL (150-450); Red Blood Count 5.59 10^6/uL (4.70-6.10); White Blood Count 6.6 10^3/uL (4.0-11.0)
[2025-05-11 11:45] LABS: Alanine Aminotransferase 53 U/L (16-63); Albumin Globulin Ratio 0.9; Albumin Level 3.7 g/dL (3.4-5.0); Alkaline Phosphatase 109 U/L (46-116); Aspartate Amino Transferase 31 U/L (15-37); Globulin 4.0 g/dL; Total Protein 7.7 g/dL (6.4-8.2)
== END 2025-05-11 10:50 | disposition home or self-care (01) ==
LOC: LAB 10:52
PROVIDERS: PCP Family Medicine; Visit Provider Nurse Practitioner Family
DX: E29.1 Testicular hypofunction (principal)
CPT/HCPCS: 36415; 80076; 82670; 84403; 85025

== ENCOUNTER 2025-08-11 07:04 | Outpatient (OUT) | payer MEDICARE, SELFPAY ==
--- OUTSIDE RECORDS SUMMARY | 2025-08-06 13:40 | XMS_ITS | Encounter Summary ---
Author Organization [facility] Address [address] [place] [address] Care Team Providers Care Group Chief Operator Name Role Phone Rosy Cotton MD Primary Care Provider [phone] Rosy Cotton MD Unavailable Erick Barajas OD Unavailable Reason for Visit * ReasonCommentsToenail Problem * Consultation (Routine) - ClosedSpecialtyDiagnoses / ProceduresReferred By ContactReferred To ContactPodiatry Diagnoses Onychomycosis Procedures DE OFFICE/OUTPATIENT [facility] 60 MINUTES Rosy Cotton MD [address] [place] [address] Phone: tel: fax: Maxi Queen DPM [address] [place] [address] Phone: tel: fax: Referral IDStatusReasonStart DateExpiration DateVisits RequestedVisits [id number] Specialty Services Required / Encounter Details DateTypeDepartmentCare Team (Latest Contact Info)Jrglbxozapm47/18/2025 1:40 PM ESTOffice Visit [facility] [address] [place] [phone] Maxi Queen DPM [address] [facility] [address] [place] [address] Xerosis cutis (Primary Dx); Diabetes mellitus due to underlying condition with diabetic polyneuropathy, unspecified whether prison insulin use (HCC); Pain due to onychomycosis of toenails of both feet; Hav (hallux abducto valgus), left; Hav (hallux abducto valgus), right Social History Tobacco UseTypesPacks/DayYears UsedDateSmoking Tobacco: NeverSmokeless Tobacco: Never Tobacco Cessation:Counseling Given: Yes Alcohol UseStandard Drinks/WeekCommentsNot Currently0 (1 standard drink = 0.6 oz pure alcohol)Caffeine Intake: [id number] Health LiteracyAnswerDate RecordedHow often do you need to have someone help you when you read instructions, pamphlets, or other written material from your doctor or pharmacy?Never 07/21/2024Social Connection and Isolation PanelAnswerDate RecordedIn a typical week, how many times do you talk on the phone with family, friends, or neighbors?More than three times a week07/21/2024How often do you get together with friends or relatives?Three times a week07/21/2024How often do you attend rastafari or worship services?More than 4 times per year07/21/2024o you belong to any clubs or organizations such as rastafari groups, unions, fraternal or athletic groups, or school groups?Yes07/21/2024How often do you attend meetings of the clubs or organizations you belong to?More than 4 times per year07/21/2024 Are you , , , , never , or living with a partner?Hsmpgpy5007/21/2024UDIT-CAnswerDate RecordedQ1: How often do you have a drink containing alcohol?Never07/21/2024Q2: How many drinks containing alcohol do you have on a typical day when you are drinking?Patient does not drink 07/21/2024Q3: How often do you have six or more drinks on one occasion?Never 07/21/2024Overall Financial Resource Strain (CARDIA)AnswerDate RecordedHow hard is it for you to pay for the very basics like food, housing, medical care, and heating?Not hard at all07/21/2024HQ-2AnswerDate RecordedPatient Health Questionnaire-2 Tcilb80009/20/2024[facility] [place] [facility] Occup[facility] - Occupational Stress QuestionnaireAnswerDate RecordedDo you feel stress - tense, restless, nervous, or anxious, or unable to sleep at night because yourmind is troubled all the time - these days?Not at all07/21/2024Exercise Vital SignAnswer Date RecordedOn average, how many days per week do you engage in moderate to strenuous exercise (like a brisk walk)?1 day07/21/2024On average, how many minutes do you engage in exercise at this level?60 min07/21/2024Hunger Vital SignAnswerDate RecordedWithin the past 12 months, you worried that your food would run out before you got the money to buymore.Never true07/21/2024Within the past 12 months, the food you bought just didn't last and you didn't have money to get more.Never true07/21/2024RAPARE - TransportationAnswerDate RecordedIn the past 12 months, has lack of transportation kept you from medical appointments or from getting medications?No07/21/2024In the past 12 months, has lack of transportation kept you from meetings, work, or from getting things needed for daily living?No07/21/2024Housing Stability Vital SignAnswerDate RecordedIn the last 12 months, was there a time when you were not able to pay the mortgage or rent on time?No07/21/2024In the past 12 months, how many times have you moved where you were living?t any time in the past 12 months, were you homeless or living in a chcf (including now)?No07/21/2024Sex and Gender InformationValueDate RecordedSex Assigned at BirthNot on fileLegal QbjQqjw8011/01/2022 6:53 PM EDTGender IdentityNot on fileSexual OrientationNot on filedocumented as of this encounter Last Filed Vital Signs Vital SignReadingTime TakenCommentsBlood Pressure--Pulse--Temperature-- Respiratory Idiz283610/07/2024 1:44 PM ESTOxygen Saturation--Inhaled Oxygen Concentration--Dnyqrl874 kg (256 lb)08/06/2025 1:44 PM VMIKfxixt811.8 cm (5' 10 )08/06/2025 1:44 PM ESTBody Mass Index36.7308/06/2025 1:44 PM ESTdocumented in this encounter Progress Notes * Maxi Queen, POLO - 08/06/2025 1:40 PM EST Patient: Mahesh Gonzalez : 1955 PCP: Rosy Cotton MD SUBJECTIVE This is a 69 y.o. male that presents today with a CC of elongated, thick nails. Pt states nails have been elongated and thick for many years and cause pain with ambulation in shoegear. Pt has tried previous treatment with minimal relief. Pt presents today for nail care and treatment. Patient is DM2 Pt also presents today with secondary complaints of dry scaly skin to feet. Pt states that they have not been using OTC creams and lotions with minimal relief. 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 and has irritation from time to time Allergies: Allergies[1] Past Medical History: Medical History[2] Medications: Current Medications[3] Social History: Social History Socioeconomic History Marital status: Spouse name: Not on file Number of children: Not on file Years of education: Not on file Highest education level: Not on file Occupational History Not on file Tobacco Use Smoking status: Never Smokeless tobacco: Never Substance and Sexual Activity Alcohol use: Not Currently Comment: Caffeine Intake: Coffee Drug use: Not on file Sexual activity: Not on file Other Topics Concern Not on file Social History Narrative Not on file Social Drivers of Health Financial Resource Strain: Low Risk (07/21/2024) Overall Financial Resource Strain (CARDIA) Difficulty of Paying Living Expenses: Not hard at all Food Insecurity: No Food Insecurity (07/21/2024) Hunger Vital Sign Worried About Running Out of Food in the Last Year: Never true Ran Out of Food in the Last Year: Never true Transportation Needs: No Transportation Needs (07/21/2024) PRAPARE - Transportation Lack of Transportation (Medical): No Lack of Transportation (Non-Medical): No Physical Activity: Insufficiently Active (07/21/2024) Exercise Vital Sign Days of Exercise per Week: 1 day Minutes of Exercise per Session: 60 min Stress: No Stress Concern Present (07/21/2024) Citizen Of [place] of Occupational Health - Occupational Stress Questionnaire Feeling of Stress : Not at all Social Connections: Socially Integrated (07/21/2024) Social Connection and Isolation Panel Frequency of Communication with Friends and Family: More than three times a week Frequency of Social Gatherings with Friends and Family: Three times a week Attends Judaism Services: More than 4 times per year Active Member of Clubs or Organizations: Yes Attends Club or Organization Meetings: More than 4 times per year Marital Status: Intimate Partner Violence: Unknown (02/11/2024) [facility] from [facility] Safety & Environment Fear of Current or Ex-Partner: Not on file Emotionally Abused: Not on file Physically Abused: Not on file Sexually Abused: Not on file Physically or Sexually Abused: Not on file Housing Stability: Low Risk (07/21/2024) Housing Stability Vital Sign Unable to Pay for Housing in the Last Year: No Number of Times Moved in the Last Year: 0 Homeless in the Last Year: No ROS: General: denies fever, chills, fatigue, malaise Gastrointestinal: denies abdominal pain, ulcers, or changes in appetite or bowel habits Musculoskeletal: denies arthritis, denies loss of strength, pain to hip, knees, back Cardiovascular: denies CP, palpitations, irregular rhythms OBJECTIVE LE EXAM: DERM: Elongated thick yellow crumbly nails digits 1 through 10. 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 Pain due to onychomycosis of toenails of both feet 3. Xerosis cutis 4. Hav (hallux abducto valgus), left 5. Hav (hallux abducto valgus), right PLAN Discussed proper foot care with patient today. Debride nails in length and thickness digits 1 through 10 Patient educated today on proper diabetic foot care including monitoring feet daily for any signs of infection openings in the skin or irregularities to both feet. Patient had a diabetic neurologicalexam today to both their feet and discussed proper shoe gear. Discussed wider shoe gear and HAV deformities and possible surgical intervention if condition worsens Patient education on condition and treatment of condition. Discussed application of hydrating cream to feet twice daily and to not place between toes and to apply prior to bed in evenings and to observe for any redness to feet or red streaks or drainage to feet. Patient to consider [id number] treatments for medication or use of urea cream and prescription today was offered for Lac-Hydrin cream. Maxi Queen DPM [1] No Known Allergies [2] Past Medical History: Diagnosis Date Cataract Cholelithiasis Diabetes mellitus (HCC) Dry eyes Gallbladder disease Glaucoma H/O CT scan of abdomen 07/30/2019 fluid filing of several small bowel loops in the right lower quadrant moderate colonic diverticulosis Hypertension Obesity [3] Current Outpatient Medications: Alcohol Swabs (DropSafe Alcohol Prep) 70 % pads, , Disp: , Rfl: amLODIPine (Norvasc) 5 MG tablet, TAKE 1 TABLET DAILY AT THE SAME TIME, Disp: 100 tablet, Rfl: 3 anastrozole (Arimidex) 1 MG chemo tablet, Take 1 mg by mouth Daily., Disp: , Rfl: atorvastatin (Lipitor) 40 MG tablet, TAKE 1 TABLET DAILY, Disp: 100 tablet, Rfl: 3 Blood Glucose Calibration (True Metrix Level 1) Low solution, , Disp: , Rfl: Blood Glucose Monitoring Suppl (Accu-Chek Guide Ne) w/Device kit, USE DIRECTED ONCE A DAY, Disp:1 kit, Rfl: 0 Continuous Glucose Sensor (FreeStyle Diamond 3 Plus Sensor) [facility] [place], 1 Device every 14 (fourteen) days, Disp: 9 each, Rfl: 3 cyanocobalamin (Vitamin B-12) 1000 MCG tablet, Take 1 tablet (1,000 mcg) by mouth Daily, Disp: 30 tablet, Rfl: 11 diclofenac (Voltaren) 75 MG EC tablet, Take 1 tablet (75 mg) by mouth in the morning and 1 tablet (75 mg) before bedtime., Disp: 200 tablet, Rfl: 3 finasteride (Proscar) 5 MG tablet, Take 1 tablet (5 mg) by mouth 1 (one) time each day at the same time, Disp: 100 tablet, Rfl: 3 glucose blood (Accu-Chek Guide Test) test strip, 1 each by Other route in the morning and 1 each inthe evening. Use as instructed., Disp: 100 each, Rfl: 3 insulin aspart (NovoLOG FLEXPEN) 100 UNIT/ML pen, Inject 10 Units under the skin in the morning and10 Units at noon and 10 Units in the evening. Inject with meals., Disp: 15 mL, Rfl: 3 insulin glargine (Toujeo Max SoloStar) 300 UNIT/ML injection, INJECT 70 UNITS SUBCUTANEOUSLY AT BEDTIME, Disp: 24 mL, Rfl: 2 insulin pen needle (BD Pen Needle Micro U/F) [facility] x [facility], USE INSTRUCTED, Disp: 100 each, Rfl: 12 irbesartan (Avapro) 150 MG tablet, Take 1 tablet (150 mg) by mouth 1 (one) time each day at the same time, Disp: 100 tablet, Rfl: 3 Jardiance 25 MG, TAKE 1 TABLET DAILY AT THE SAME TIME, Disp: 100 tablet, Rfl: 3 latanoprost (Xalatan) 0.005 % ophthalmic solution, INSTILL 1 DROP INTO BOTH EYES AT BEDTIME, Disp: 7.5 mL, Rfl: 3 semaglutide (Rybelsus) 14 MG tablet, Take 1 tablet (14 mg) by mouth in the morning. Take before meals., Disp: 100 tablet, Rfl: 3 tadalafil (Cialis) 5 MG tablet, Take 5 mg by mouth in the morning., Disp: , Rfl: TRUEplus Lancets 33G [facility] [place], , Disp: , Rfl: documented in this encounter Plan of Treatment DateTypeDepartmentCare Team (Latest Contact Info)Uwulntlpxzk64/10/2026 9:15 AM ESTOffice Visit [facility] [address] [place] [phone] Dimitri Duenas DO [address] [place] [address] 10/15/2025 1:10 PM ESTOffice Visit [facility] [address] [facility] 120 [place] [phone] Maxi Queen, DPJanet [address] [facility] 5 [place] [address] 10/19/2025 9:00 AM ESTOffice Visit [facility] [place] [facility] [address] [facility] 110 [place] [phone] Rosy Cotton MD 112 [facility] 110 [place] [address] documented as of this encounter Visit Diagnoses Diagnosis Xerosis cutis- Primary Other specified disease of sebaceous glands Diabetes mellitus due to underlying condition with diabetic polyneuropathy, unspecified whether prison insulin use (HCC) Pain due to onychomycosis of toenails of both feet Hav (hallux abducto valgus), left Hav (hallux abducto valgus), right documented in this encounter Care Teams Team MemberRelationshipSpecialtyStart DateEnd Date Rosy Cotton MD [address] [facility] [address] [place] [address] PCP - GeneralFamily Medicine03/19/23 Rosy Cotton MD 112 [facility] 110 [place] [address] PCP - [employer]08/20/23 Erick Barajas OD [address] [place] [id number] Referring PhysicianOptometry03/11/24documented as of this encounter
--- OUTSIDE RECORDS SUMMARY | 2025-08-11 07:09 | XMS_ITS | Clinical Summary ---
Author Organization [facility] Healthcare Address [address] [place] [address] Care Team Providers Care Fisher Troll Line Name Role Phone Rosy Cotton MD Primary Care Provider [phone] Rosy Cotton MD Unavailable JennErick cárdenas OD Unavailable Allergies No known active allergies Medications MedicationSigDispense QuantityRefillsLast FilledStart DateEnd DateStatus Blood Glucose Calibration (True Metrix Level 1) Low solution 11/29/2022ctive Alcohol Swabs (DropSafe Alcohol Prep) 70 % pads 05/01/2023ctive TRUEplus Lancets 33G misc 05/01/2023ctive irbesartan (Avapro) 150 MG tablet Indications:Benign essential hypertensionTake 1 tablet (150 mg) by mouth 1 (one) time each day at the same time 100 tablet 5Active finasteride (Proscar) 5 MG tablet Indications:Lower urinary tract symptoms due to benign prostatic hyperplasiaTake 1 tablet (5 mg) by mouth 1 (one) time each day at the same time 100 tablet 5Active diclofenac (Voltaren) 75 MG EC tablet Indications:ArthritisTake 1 tablet (75 mg) by mouth in the morning and 1 tablet (75 mg) before bedtime. 200 tablet 5Active Jardiance 25 MG Indications:Type 2 diabetes mellitus without complication, with long-term current use of insulin (HCC)TAKE 1 TABLET DAILY AT THE SAME TIME 100 tablet 5Active tadalafil (Cialis) 5 MG tablet Take 5 mg by mouth in the morning.5Active semaglutide (Rybelsus) 14 MG tablet Indications:Type 2 diabetes mellitus without complication, with long-term current use of insulin (HCC)Take 1 tablet (14 mg) by mouth in the morning. Take before meals. 100 tablet 3035Active amLODIPine (Norvasc) 5 MG tablet Indications:Benign essential hypertensionTAKE 1 TABLET DAILY AT THE SAME TIME 100 tablet 3045Active insulin pen needle (BD Pen Needle Micro U/F) 32G x 6 mm misc Indications:Type 2 diabetes mellitus without complication, with long-term current use of insulin (HCC)USE INSTRUCTED 100 each 1205Active atorvastatin (Lipitor) 40 MG tablet Indications:Atherosclerosis of coronary artery of iroquois heart without angina pectoris, unspecified vessel or lesion type,Pure hypercholesterolemiaTAKE 1 TABLET DAILY 100 tablet 3065Active cyanocobalamin (Vitamin B-12) 1000 MCG tablet Indications:Low energy,Other fatigueTake 1 tablet (1,000 mcg) by mouth Daily 30 tablet 110507/6Active glucose blood (Accu-Chek Guide Test) test strip Indications:Type 2 diabetes mellitus with other specified complication, with long-term current use of insulin ([facility])1 each by Other route in the morning and 1 each in the evening. Use as instructed. 100 each 5Active insulin glargine (Toujeo Max SoloStar) 300 UNIT/ML injection Indications:Type 2 diabetes mellitus without complication, with long-term current use of insulin ([facility])INJECT 70 UNITS SUBCUTANEOUSLY AT BEDTIME 24 mL 5Active Blood Glucose Monitoring Suppl (Accu-Chek Guide Me) w/Device kit Indications:Type 2 diabetes mellitus with other circulatory complications (HCC) USE DIRECTED ONCE A DAY 1 kit 5Active latanoprost (Xalatan) 0.005 % ophthalmic solution Indications:Primary open angle glaucoma (POAG) of both eyes, mild stageINSTILL 1 DROP INTO BOTH EYES AT BEDTIME 7.5 mL 5Active anastrozole (Arimidex) 1 MG chemo tablet Take 1 mg by mouth Daily.5Active insulin aspart (NovoLOG FLEXPEN) 100 UNIT/ML pen Indications:Type 2 diabetes mellitus without complication, with long-term current use of insulin ([facility])Inject 10 Units under the skin in the morning and 10 Units at noon and 10 Units in the evening. Inject with meals. 15 mL 5Active Continuous Glucose Sensor (FreeStyle Diamond 3 Plus Sensor) [facility] [place]ications:Type 2 diabetes mellitus without complication, with long-term current use of insulin (HCC),Type 2 diabetes mellitus with other circulatory complications ([facility])1 Device every 14 (fourteen) days 9 each 5Active NovoLOG FLEXPEN 100 UNIT/ML pen Indications:Type 2 diabetes mellitus without complication, with long-term current use of insulin ([facility])INJECT 10 UNITS SUBCUTANEOUSLY EVERY 12 HOURS WITH MEALS(TWICE A DAY) 15 mL Discontinued(Reorder) Active Problems ProblemNoted DateDiagnosed DateLow aqyagz2103/17/2025Pes planus of both feet 12/16/2024hilles tendinitis of left lower fshugrjpy68/29/2025 Assessment & Plan (12/16/2024 2:21 PM EDT): Stretching exercises Do Diclofenac twice a day for 2 weeks Consider Administrative Officer Thumb pain, left12/16/2024 Assessment & Plan (12/16/2024 2:20 PM EDT): Consider XR Bsburdknrpgdv73/29/2025Erectile dysfunction due to arterial insufficiency 10/21/2024Unspecified osteoarthritis, unspecified site10/21/2024 Assessment & Plan (10/21/2024 1:57 PM EST): Weight loss will help knee pain Body mass index (BMI) 37.0-37.9, adult10/21/2024 Assessment & Plan (10/21/2024 1:59 PM EST): Diet and Exercise Encouraged Type 2 diabetes mellitus with diabetic /04/2025 Assessment & Plan (10/21/2024 1:58 PM EST): F/up with Optometry yearly Type 2 diabetes mellitus with other specified pizulxwqqmzi14/04/2025 Assessment & Plan (10/21/2024 1:58 PM EST): A1c went from 7.1 to 7.0 Encounter for surveillance of abnormal nevi10/21/2024Tubular adenoma of colon 07/22/2024 Assessment & Plan (07/22/2024 1:38 PM EST): Colonoscopy every 5 years Type 2 diabetes mellitus with other circulatory xuaysxjjznwms74/01/2024 Assessment & Plan (07/20/2025 1:12 PM EST): No visits with results within 1 Day(s) from this visit. Latest known visit with results is: Abstract on 07/08/2025 Component Date Value Ref Range Status RESULTS 07/08/2025 ndr Final No Tobacco use Follow ADA 1800 diet low carbohydrate Continue Med Compliance Goal LDL less than 100Goal BP 130/80 Goal HgbA1c < 7.0% Monitor Feet, monitor for infection Needs Exercise Yearly eye exams Prior to your visit today we reviewed your chart and outlined testing and treatment needed foryour care. Reviewed poissble complications of diabetes including, loss of vision, kidney failure and increased risk of heart attacks and stroke. We made recommendations on how to control your blood sugars, and minimize your risk of these complications. We discussed your current barriers to a healthy living and importance of healthy diet and exercise. Assessment & Plan (03/17/2025 1:21 PM EDT): No Tobacco use Follow ADA 1800 diet low carbohydrate Continue Med Compliance Goal LDL less than 100Goal BP 130/80 Goal HgbA1c < 7.0% Monitor Feet, monitor for infection Needs Exercise Yearly eye exams Prior to your visit today we reviewed your chart and outlined testing and treatment needed foryour care. Reviewed poissble complications of diabetes including, [...] Continue Med Compliance Goal LDL less than 100Goal BP 130/80 Goal HgbA1c < 7.0% Monitor Feet, monitor for infection Needs Exercise Yearly eye exams Prior to your visit today we reviewed your chart and outlined testing and treatment needed foryour care. Reviewed poissble complications of diabetes including, [...] your blood pressure less than 140/90, and theimportance of weight control. We made recommendations on [...] 1:43 PM EDT): Continue current meds Recurrent UTI03/25/2024nkylosing spondylitis of unspecified sites in spine 01/22/2024 Assessment & Plan (10/21/2024 1:58 PM EST): F/up with rheumatology as needed Motor vehicle psnlnujo89/04/2024outine general medical examination at health care vckvuerd49/04/2024 Assessment & Plan (10/21/2024 1:59 PM EST): Colonoscopy every 10 years or Cologuard every 3 years ages 50-75 Flu Vaccine yearly Pneumovax and Prevnar Mammo yearly for women and PSA yearly for men Labs/Screening yearly to rule out Diabetes, Chronic Kidney disease and liver disease Hepatitis Screen forat risk populations Shingles vaccine after65 if indicated Tetanus Vaccine every 10 years [...] Hepatitis Screen forat risk populations Shingles vaccine after65 if indicated Tetanus Vaccine every 10 years Lipids yearly under the age of 75 If Smoking history: one time CT scan of chest and Ultrasound of Aorta to screen for Anuerysm Decreased testosterone level3Diabetes ssvoerii37/29/2023 Assessment & Plan (03/17/2025 1:21 PM EDT): A1c is now 6.7, down from 7.0 Assessment & Plan (10/21/2024 1:59 PM EST): As above Assessment & Plan (05/20/2024 1:42 PM EDT): No Tobacco use Follow ADA 1800 diet low carbohydrate Continue Med Compliance Goal LDL less than 100Goal BP 130/80 Goal HgbA1c < 7.0% Monitor Feet, monitor for infection Needs Exercise Yearly eye exams Prior to your visit today we reviewed your chart and outlined testing and treatment needed foryour care. Reviewed poissble complications of diabetes including, [...] Continue Med Compliance Goal LDL less than 100Goal BP 130/80 Goal HgbA1c < 7.0% Monitor Feet, monitor for infection Needs Exercise Yearly eye exams Prior to your visit today we reviewed your chart and outlined testing and treatment needed foryour care. Reviewed poissble complications of diabetes including, [...] Continue Med Compliance Goal LDL less than 100Goal BP 130/80 Goal HgbA1c < 7.0% Monitor Feet, monitor for infection Needs Exercise Yearly eye exams Prior to your visit today we reviewed your chart and outlined testing and treatment needed foryour care. Reviewed poissble complications of diabetes including, [...] Continue Med Compliance Goal LDL less than 100Goal BP 130/80 Goal HgbA1c < 7.0% Monitor Feet, monitor for infection Needs Exercise Yearly eye exams Prior to your visit today we reviewed your chart and outlined testing and treatment needed foryour care. Reviewed poissble complications of diabetes including, loss of vision, kidney failure and increased risk of heart attacks and stroke. We made recommendations on how to control your blood sugars, and minimize your risk of these complications. We discussed your current barriers to a healthy living and importance of healthy diet and exercise. Ccjldszzjk34/29/8258Ynfbnvecp03/29/8106Dzggpnogureg39/29/4595Pamgabqw36/29/2023 Poor urinary qskuzk5307/18/2023rimary open angle glaucoma (POAG) of both eyes, mild stage06/06/2023ge-related nuclear cataract of both eyes06/06/2023ry eyes 06/06/2023enign essential /26/2023 Assessment & Plan (07/20/2025 1:15 PM EST): Our specific goals, for your hypertension, is to keep your blood pressure less than 140/90, and theimportance of weight control. We made recommendations on [...] the importance of taking them as prescribed. E-Duction handouts Assessment & Plan (05/20/2024 1:42 PM EDT): Our specific goals, for your hypertension, is to keep your blood pressure less than 140/90, and theimportance of weight control. We made recommendations on [...] the importance of taking them as prescribed. 4Bloxouts Assessment & Plan (01/22/2024 2:19 PM EDT): Our specific goals, for your hypertension, is to keep your blood pressure less than 140/90, and theimportance of weight control. We made recommendations on [...] the importance of taking them as prescribed. E-Duction handouts Assessment & Plan (10/22/2023 9:10 AM EST): Our specific goals, for your hypertension, is to keep your blood pressure less than 140/90, and theimportance of weight control. We made recommendations on [...] the importance of taking them as prescribed. E-Duction handouts Assessment & Plan (07/23/2023 8:41 AM EST): Our specific goals, for your hypertension, is to keep your blood pressure less than 140/90, and theimportance of weight control. We made recommendations on [...] the importance of taking them as prescribed. E-Duction handouts Assessment & Plan (03/20/2023 10:37 AM EDT): Our specific goals, for your hypertension, is to keep your blood pressure less than 140/90, and theimportance of weight control. We made recommendations on [...] the importance of taking them as prescribed. E-Duction handouts Benign prostatic hyperplasia with lower urinary tract fdehhone81/26/2023 Diverticulosis of large intestine without phxeyfhzci38/26/2023Elevated liver hxfkgpd7703/14/2023Male erectile dysfunction, wfoqxgaytge10/26/2023 Assessment & Plan (10/21/2024 1:57 PM EST): This is a chronic medical condition that is stable since last assessment. No changes in treatment are suggested at this time. Continue Current meds. Assessment & Plan (10/22/2023 9:14 AM EST): Requests referral for ED Low HDL (under 40)03/14/2023Morbid (severe) obesity due to excess calories 03/14/2023 Assessment & Plan (10/21/2024 1:58 PM EST): Weight loss and exercise encouraged Pure ssannjfwfeqagmtrzckv31/26/2023ure fgotmjqlauskvhxgfosi57/26/2023 Assessment & Plan (10/21/2024 1:59 PM EST): This is a chronic medical condition that is stable since last assessment. No changes in treatment are suggested at this time. Continue Current meds. Testicular jwiyuzujeoq62/26/2023Type 2 diabetes mellitus without complications 03/14/2023 Assessment & Plan (03/20/2023 10:36 AM EDT): No Tobacco use Follow ADA 1800 diet low carbohydrate Continue Med Compliance Goal LDL less than 100Goal BP 130/80 Goal HgbA1c < 7.0% Monitor Feet, monitor for infection Needs Exercise Yearly eye exams Prior to your visit today we reviewed your chart and outlined testing and treatment needed foryour care. Reviewed poissble complications of diabetes including, loss of vision, kidney failure and increased risk of heart attacks and stroke. We made recommendations on how to control your blood sugars, and minimize your risk of these complications. We discussed your current barriers to a healthy living and importance of healthy diet and exercise. Unspecified fracture of unspecified thoracic vertebra, initial encounter for closed muwyutzf62/26/2023iverticular disease of colon10/03/2017Lipoprotein deficiency aueutsaz21/14/2016Testicular bqgocxipivmd67/18/2016Lower urinary tract symptoms due to benign prostatic lgzvuebvsyl07/12/2016Coronary wlxukglwahnldya09/19/2005 Overview (07/18/2023): CTA Chest 06/23/05: RCA 100% mid and 50-70% prox-mid, LAD 95% mid and severe distal, LCX 60-70% mid, LVEF 58% Cardiolite 05/22/05: ischemia apex, scar inferior wall Type 1 diabetes hgqemhcc74/19/2005Nonspecific abnormal results of cardiovascular function study08/07/2005Personal history of tobacco use, presenting hazards to qydhke8908/07/2005 Encounters DateTypeDepartmentCare PnusChuxltacbpf71/18/2025 1:40 PM ESTOffice Visit [facility] [address] [facility] [address] [place] [address] Maxi Queen DPM Xerosis cutis (Primary Dx); Diabetes mellitus due to underlying condition with diabetic polyneuropathy, unspecified whether buttermaker insulin use (HCC); Pain due to onychomycosis of toenails of both feet; Hav (hallux abducto valgus), left; Hav (hallux abducto valgus), right08/06/2025amboo flowsheet [facility] [address] [facility] [address] [place] [address] Maxi Queen DPM 08/06/20256582Lhxdzr19/09/2025[facility]phone [facility] [address] [facility] [address] [place] [address] Rosy Cotton MD 07/21/2025bstract [facility] [address] [facility] [address] [place] [address] Maxi Queen DPM 07/20/2025 1:00 PM ESTOffice Visit [facility] [place] [facility] [address] [facility] [address] [place] [address] Rosy Cotton MD Benign essential hypertension (Primary Dx); Type 2 diabetes mellitus with other circulatory complications (HCC); Type 2 diabetes mellitus without complication, with long-term current use of insulin (HCC); Ihzvnoulnzrql40/01/5994Idujhg06/25/6010Zpvhwx38/19/2025bstract [facility] [place] [facility] [address] [facility] [address] [place] [address] Rosy Cotton MD 06/25/2025Refill [facility] [address] [facility] [address] [place] [address] Rosy Cotton MD Primary open angle glaucoma (POAG) of both eyes, mild stagefrom Last 3 Months Immunizations ImmunizationAdministration DatesNext DueInfluenza, High Dose Seasonal, Preservative Free05/01/2024Influenza, Seasonal, Quadrivalent, Adjuvanted 05/09/2023Influenza, injectable, MDCK, preservative free, wimemyttzuij31/19/2019 Influenza, injectable, MDCK, niduoqgsffak33/23/2020Influenza, injectable, xtytsfvmiysi36/16/2021,05/26/2016Influenza, injectable, quadrivalent, preservative free06/05/2022,05/26/2016Influenza, live, audjldonys40/14/2019 Influenza, seasonal, intradermal, preservative free06/01/2017Pneumococcal conjugate vaccine, 21 valent (PCV21), polysaccharide KWP071 conjugate, preservative free01/06/2025RSV, recombinant, protein subunit RSVpreF, adjuvant reconstitu, 120mcg/0.5mL, PF (Arexvy)06/03/20244518EEAO-LJC-0 (COVID-19) vaccine, mRNA, spike protein, LNP, PF, dione-sucrose, 30 mcg/0.3 mL05/09/2023Tdap 01/06/2025Zoster, Raxaqftwilx59/06/2022,08/30/2021 Social History Tobacco UseTypesPacks/DayYears UsedDateSmoking Tobacco: NeverSmokeless Tobacco: Never Tobacco Cessation:Counseling Given: Yes Alcohol UseStandard Drinks/WeekCommentsNot Currently0 (1 standard drink = 0.6 oz pure alcohol)Caffeine Intake: TopalbZ8318 Health LiteracyAnswerDate RecordedHow often do you need [...] times a week07/21/2024How often do you attend anabaptism or sikh services?More than 4 times per year07/21/2024o you belong to any clubs or organizations such as anabaptism groups, unions, fraternal or athletic groups, or school groups?Yes07/21/2024How often do you attend meetings of the clubs or organizations you belong to?More than 4 times per year07/21/2024 Are you , , , , never , or living with a partner?Aazvohm8207/21/2024UDIT-CAnswerDate RecordedQ1: How often do you have a [...] heating?Not hard at all07/21/2024HQ-2AnswerDate RecordedPatient Health Questionnaire-2 Axkly82409/20/2024[facility] [place] [facility] - Occupational Stress QuestionnaireAnswerDate [...] were you homeless or living in a retirement (including now)?No07/21/2024Sex and Gender InformationValueDate RecordedSex Assigned at BirthNot on fileLegal ApaRqww3311/01/2022 6:53 PM EDTGender IdentityNot on fileSexual OrientationNot on file Last Filed Vital Signs Vital SignReadingTime TakenCommentsBlood Fwokhknm847/7407/20/2025 1:04 PM EST Tcptb133307/20/2025 1:04 PM ESTTemperature--Respiratory Idvs765310/07/2024 1:44 PM ESTOxygen Ngodoqfocu99%07/20/2025 1:04 PM ESTInhaled Oxygen Concentration-- Ykvqxj849 kg (256 lb)08/06/2025 1:44 PM FGOGjkbwb143.8 cm (5' 10 )08/06/2025 1:44 PM ESTBody Mass Index36.7308/06/2025 1:44 PM EST Plan of Treatment DateTypeDepartmentCare Team (Latest Contact Info)Itcxgoafxze40/10/2026 9:15 AM ESTOffice Visit [facility] [address] [place] [address] Dimitri Duenas DO [address] [place] [address] 10/15/2025 1:10 PM ESTOffice Visit [facility] [address] [facility] [address] [place] [address] Maxi Queen, POLO [address] [facility] [address] [place] [address] 10/19/2025 9:00 AM ESTOffice Visit [facility] [place] [facility] [address] [facility] [address] [place] [address] Rosy Cotton MD 112 [facility] [address] [place] [address] Health MaintenanceDue DateLast DoneCommentsCT Gaopxawpxeze35/07/1958FIT-DNA 1957FIT1957FOBT11/24/19573018Irldobcsahsmy77/07/1958Diabetes: Urine Protein Pofmgtczd44, 07/23/2023, 09/06/2021, Additional history existsDiabetes: Hemoglobin A1C612/08/2024, 03/17/2025, 10/21/2024, Additional history existsMedicare Annual Wellness (AWV)10/21/2025 10/21/2024, 10/22/2023, 4Diabetes: Retinopathy Kkhvxsuai32/19/2027 07/08/2025, 03/24/2025, 03/24/2025, Additional history existsColonoscopy , 07/10/2024, 05/15/2014Colorectal Cancer Screening 07/10/2029Pneumococcal Vaccine: 65+ XfhlxZnnuzyihr48/20/2025Influenza Vaccine Lgpwablad98/10/2025, 05/01/2024, 05/09/2023, Additional history exists Procedures Procedure NamePriorityDate/TimeAssociated DiagnosisCommentsPOCT GLYCATED HEMOGLOBIN, YSZAYNjdzbtd54/01/2025 1:13 PM EST Type 2 diabetes mellitus with other circulatory complications (HCC) DIABETIC RETINOPATHY SCREENING - OU - BOTH JNWWCmuooac74/19/2025 MICROALBUMIN / CREATININE URINE CHSQYPwlhbcw67/03/2024 1:48 PM EST Type 2 diabetes mellitus with other specified complication, with long-term current use of insulin (HCC) COLONOSCOPY EHVKVXAAWVHjgurbo90/21/2024 from Last 3 Months or Most Recently Relevant to Health Maintenance Results * (ABNORMAL) POCT Glycated hemoglobin, total (07/20/2025 1:13 PM EST)Component ValueRef RangeTest MethodAnalysis TimePerformed AtPathologist Signature Hemoglobin A1C7.2Specimen (Source)Anatomical Location / LateralityCollection Method / VolumeCollection TimeReceived ZaolHtdae17/01/2025 1:13 PM EST Narrative Authorizing ProviderResult TypeResult StatusRosy Cotton MDPOINT OF CARE TEST ENTER/EDIT ORDERABLESFinal Result * Diabetic Retinopathy Screening - OU - Both Eyes (07/08/2025)ComponentValueRef RangeTest MethodAnalysis TimePerformed AtPathologist SignatureRESULTSndr Anatomical RegionLateralityModalityHeadOtherSpecimen (Source)Anatomical Location / LateralityCollection Method / VolumeCollection TimeReceived Time 07/08/2025 Narrative Authorizing ProviderResult TypeResult Esme Cotton MDOPHTH PHOTOGRAPHY Final Result * (ABNORMAL) Microalbumin / creatinine urine ratio (07/22/2024 1:48 PM EST) ComponentValueRef RangeTest MethodAnalysis TimePerformed AtPathologist SignatureCREATININE, RANDOM UATTZ1569 - 320 mg/dLQUESTALBUMIN, URINE4.7See Note: mg/dLQUESTComment: Reference Range: Reference Range Not established ALBUMIN/CREATININE RATIO, RANDOM URINE70(H)<30 mg/g creatQUESTComment: The ADA defines abnormalities in albumin excretion as follows: Albuminuria Category ?Result (mg/g creatinine) Normal to Mildly increased <30 Moderately increased ? 30-299 Severely increased > OR = 300 The ADA recommends that at least two of three specimens collected within a 3-6 month period be abnormal before considering a patient to be within a diagnostic category. Specimen (Source)Anatomical Location / LateralityCollection Method / Volume Collection TimeReceived TimeUrineUrine specimen obtained by clean catch procedure / Qpzvqbu2907/22/2024 1:48 PM EST07/22/2024 1:49 PM EST Narrative [facility] - 07/23/2024 2:24 PM EST FASTING:UNKNOWN FASTING: UNKNOWN Resulting Agency Comment Performing Organization Information ?Site ID: [id number] ?Name: [facility] ?Address: [address] [place] [address], [address] [place] [id number] ?Director: Pierre Smith MD Authorizing ProviderResult TypeResult StatusRosy Cotton MDLAB URINE ORDERABLES Final ResultPerforming OrganizationAddressCity/State/ZIP CodePhone Number [facility] * (ABNORMAL) COLONOSCOPY DIAGNOSTIC (07/10/2024)Anatomical RegionLaterality ModalityRadiographic ImagingSpecimen (Source)Anatomical Location / Laterality Collection Method / VolumeCollection TimeReceived Time07/10/2024 Narrative 07/10/2024 10:41 AM EST Needs repeat in 5 years Authorizing ProviderResult TypeResult StatusRosy Cotton MDIMG XR PROCEDURES Final Result from Last 3 Months or Most Recently Relevant to Health Maintenance Insurance Care Teams Team MemberRelationshipSpecialtyStart DateEnd Date Rosy Cotton MD [address] [facility] [address] [place] [address] PCP - GeneralFami Medicine03/19/23 Rosy Cotton MD [address] [place] [address] PCP - [employer]08/20/23 Erick Barajas OD [address] [place] [address] Referring PhysicianOptometry03/11/24
--- OUTSIDE RECORDS SUMMARY | 2025-08-11 07:09 | XMS_ITS | Clinical Summary ---
Author Organization [facility] Address [address] [place] [address] Care Team Providers Care Chief Learning Officer Name Role Phone Rosy Cottno MD Primary Care Provider [phone] Delroy Carey MD Unavailable [phone] Allergies No known active allergies Medications MedicationSigDispense QuantityRefillsLast FilledStart DateEnd DateStatus amLODIPine (Norvasc) 5 mg tablet Take 5 mg by mouth in the morning.05/15/2020Active atorvastatin (Lipitor) 40 mg tablet Take 40 mg by mouth in the morning.11/21/2023ctive diclofenac (Voltaren) 75 mg EC tablet Take 75 mg by mouth if needed in the morning and at bedtime.09/03/2023ctive empagliflozin (Jardiance) 25 mg Take 25 mg by mouth in the morning.09/03/2023ctive finasteride (Proscar) 5 mg tablet Take 5 mg by mouth 1 (one) time each day at the same time.10/10/2019Active hydroCHLOROthiazide (HYDRODiuril) 25 mg tablet Take 25 mg by mouth in the morning.05/15/2020Active NovoLOG Flexpen U-100 Insulin 100 unit/mL (3 mL) injection pen Inject 12 Units under the skin every 12 (twelve) hours.10/23/2023ctive Toujeo Max U-300 SoloStar 300 unit/mL (3 mL) injection Inject 70 Units under the skin at bedtime.11/09/2023ctive irbesartan (Avapro) 150 mg tablet Take 150 mg by mouth in the morning.09/03/2023ctive BD Ultra-Fine Micro Pen Needle 32 gauge x 1/4 needle 07/16/2024Active Rybelsus 14 mg tablet TAKE ONE TABLET BY MOUTH ONCE DAILY 30 MINUTES BEFORE FIRST FOOD, BEVERAGE, OR OTHER ORAL MEDICATION OF THE DAY Oral for 3004Active sildenafil (Viagra) 100 mg tablet Indications:erectile dysfunctionTake 1 tablet (100 mg) by mouth if needed for erectile dysfunction. 10 tablet 11004/29/2024ctive Additional Information Patient not taking.Reported on 05/19/2025 tadalafil (Cialis) 5 mg tablet Indications:Erectile dysfunction, unspecified erectile dysfunction typeTake 1 tablet (5 mg) by mouth in the morning. 90 tablet 5Active Additional Information Patient not taking.Reported on 05/19/2025 cyanocobalamin (Vitamin B-12) 1,000 mcg tablet Take 1,000 mcg by mouth in the morning.6Active latanoprost (Xalatan) 0.005 % ophthalmic solution Administer 1 drop into both eyes at bedtime.5Active anastrozole (Arimidex) 1 mg chemo tablet Indications:Hypogonadism male,Estradiol excessTake 1 tablet (1 mg total) by mouth in the morning Take 1 tablet by mouth, 3 times per week, on Sunday, Sunday, Sunday, Take in the morning with water. 45 tablet 5Active anastrozole (Arimidex) 1 mg chemo tablet Indications:Hypogonadism male,Estradiol excessTake 1 tablet (1 mg total) by mouth in the morning 90 tablet Discontinued Active Problems ProblemNoted DateDiagnosed DateTobacco use05/19/20253734Jcgudhliz03/26/2025 Qxgsnsxkvxkxc25/29/2025Pes planus of both feet12/16/2024Thumb pain, left 12/16/2024Type 2 diabetes mellitus with diabetic idvesclp81/04/2025Tubular adenoma of colon07/22/2024Hypogonadism male04/29/2024Encounter for screening for malignant neoplasm of xyvmdpvm57/10/2024ecurrent UTI03/25/2024enign prostatic hyperplasia with urinary qmgoqwbkw17/06/2024Erectile ipxnlmlbckv30/06/2024Motor vehicle grlwhonf74/04/2024oor urinary wudmlj6807/18/2023rimary open angle glaucoma (POAG) of both eyes, mild stage06/06/2023Morbid (severe) obesity due to excess jtzppssi15/26/2023ure hlivvqwzisuhpnnvmmdz28/26/2023ure rttlgmnttdzzrtodrpfw68/26/2023Unspecified fracture of unspecified thoracic vertebra, initial encounter for closed xrbjwvid88/26/2023ersonal history of tobacco use, presenting hazards to cugtpq5408/07/2005 Encounters DateTypeDepartmentCare MravMkkzxfvzpap80/25/2025Telephone [facility] [address] [place] [phone] Zayra Price MA 07/06/2025Refill [facility] [address] [place] [address] Ja Talavera, [employer] PUNCH OPERATOR HELPER Hypogonadism male; Estradiol rwopps0905/20/2025Orders Only [facility] [address] [place] [phone] Ja Talavera, [employer] P[employer] OPERATOR HELPER 05/19/2025 10:15 AM EDTFollow-Up [facility] [address] [place] [address] Ja Talavera, HO[employer] P[employer] OPERATOR HELPER Hypogonadism male (Primary Dx); Estradiol excess; Erectile dysfunction, unspecified erectile dysfunction type05/19/2025Telephone [facility] [address] [place] [phone] Zayra Price MA from Last 3 Months Immunizations ImmunizationAdministration DatesNext DueInfluenza, High Dose Seasonal, Preservative Free05/01/2024Influenza, Seasonal, Quadrivalent, Adjuvanted 05/09/2023Influenza, injectable, MDCK, preservative free, ktkhfizwmicl14/19/2019 Influenza, injectable, MDCK, /23/2020Influenza, injectable, /16/2021Influenza, injectable, quadrivalent, preservative free 06/05/2022,05/26/2016Influenza, live, zjahnbeyez32/14/2019Influenza, seasonal,quadrivalent, preservative free06/01/2017Pneumococcal Conjugate Pcv21, Polysaccharide Xig158 PNEUMOCOCCAL CONJUGATE PCV21, POLYSACCHARIDE ZMZ966 01/06/2025RSV, Adult, Mvdrevpubfo98/15/9706Bjxj93/20/2025Zoster, Recombinant 01/23/2022,08/30/2021 Social History Tobacco UseTypesPacks/DayYears UsedDateSmoking Tobacco: FormerCigarettesQuit: 2004Passive Smoke Exposure: PastSmokeless Tobacco: Never Tobacco Cessation:Counseling Given: Not Answered Alcohol UseStandard Drinks/WeekCommentsNever0 (1 standard drink = 0.6 oz pure alcohol)PHQ-2AnswerDate RecordedPatient Health Questionnaire-2 Ivafl810 UT Safety & EnvironmentAnswerDate RecordedFear of Current or Ex-PartnerNot on file02/11/2024Emotionally AbusedNot on file02/11/2024hysically AbusedNot on file02/11/2024Sexually AbusedNot on file02/11/2024hysically or Sexually Abused Not on file02/11/2024Sex and Gender InformationValueDate RecordedSex Assigned at VqsnwJlvv40/26/2025 3:14 PM EDTLegal EpjYaff6102/11/2024 3:38 PM EDTGender BqqyxvvwCfkn61/26/2025 3:14 PM EDTSexual OrientationHeterosexual or Straight 05/15/2025 3:14 PM EDT Last Filed Vital Signs Vital SignReadingTime TakenCommentsBlood Ivdfvpzc859/77005/19/2025 10:51 AM EDT Fyffs819705/19/2025 10:51 AM UVKYvzvkqerdna90.8 ??C (98.2 ??F)11/04/2024 9:29 AM EDTRespiratory Rate--Oxygen Saturation--Inhaled Oxygen Concentration--Pscouk401 kg (260 lb)05/19/2025 10:51 AM EZPSodhex262.8 cm (5' 10 )05/19/2025 10:51 AM EDT Body Mass Index37.3109 10:51 AM EDT Plan of Treatment DateTypeDepartmentCare Team (Latest Contact Info)Pgfgmvrrjrl58/ 11:30 AM ESTOffice Visit [facility] [address] [place] [phone] Rosa M Blackwood, [employer] P[employer] OPERATOR HELPER [address] [place] [address] 08/24/2025 2:00 PM ESTProcedure Visit [facility] [address] [place] [phone] Ja Talavera, [employer] P[employer] OPERATOR HELPER [address] [place], [place] [phone] Health MaintenanceDue DateLast DoneCommentsCT Vijlokxrlyqm15/07/1958Diabetes: Hemoglobin A1C1957FIT-DNA1957FIT1957FOBT1957Medicare Annual Wellness (AWV)11/24/19578219Urrvrcczazdhy15/07/1958Diabetes: Retinopathy Zuxybxzve82/07/3877Whndgodqwfu60/26/202409/Colorectal Cancer Screening 05/15/2024OVID-19 Vaccine ( season)/07/2024, 05/09/2023, 05/09/2022, Additional history existsInfluenza Vaccine (#1)/07/2024, 05/09/2023, 06/05/2022, Additional history existsDiabetes: Urine Protein Rnckvrcxc02, 07/23/2023epression Xmgdropov91/18/2026 11/04/2024Fall Risk Ocspdeabn665Adult Paevfhn9501/06/2035 01/06/2025Zoster DdnocpsfAxrzjbodc80/06/2022, 2Pneumococcal Vaccine: 50+ HslrpCxuiptbtc24/20/2025HIB VaccinesAged OutNo longer eligible based on patient's age to complete this topicHPV VaccinesAged OutNo longer eligible based on patient's age to complete this topicIPV VaccinesAged OutNo longer eligible based on patient's age to complete this topicMeningococcal B VaccineAged OutNo longer eligible based on patient's age to complete this topicMeningococcal VaccineAged OutNo longer eligible based on patient's age to complete this topic Rotavirus VaccinesAged OutNo longer eligible based on patient's age to complete this topic Procedures Procedure NamePriorityDate/TimeAssociated DiagnosisCommentsTESTOSTERONERoutine 05/20/2025 9:26 AM EBHMBQXXIYSWIileyzy99/01/2025 9:26 AM EDTCOMPREHENSIVE METABOLIC FMPMILcrtczx27/01/2025 9:26 AM EDTfrom Last 3 Months Results * Estradiol (05/20/2025 9:26 AM EDT)Specimen (Source)Anatomical Location / LateralityCollection Method / VolumeCollection TimeReceived TimeBloodVenous blood specimen / Unknown Narrative Authorizing ProviderResult TypeResult StatusJa Aquilesnimeshjackie Spot LabsLAB BLOOD ORDERABLESFinal Result * Testosterone (05/20/2025 9:26 AM EDT)Specimen (Source)Anatomical Location / LateralityCollection Method / VolumeCollection TimeReceived TimeBloodVenous blood specimen / Unknown Narrative Authorizing ProviderResult TypeResult StatusArsejose Ilan Spot LabsLAB BLOOD ORDERABLESFinal Result * Comprehensive metabolic panel (05/20/2025 9:26 AM EDT)Specimen (Source) Anatomical Location / LateralityCollection Method / VolumeCollection Time Received TimeBloodVenous blood specimen / Unknown Narrative Authorizing ProviderResult TypeResult StatusArsejose Novonicsyan Spot LabsLAB BLOOD ORDERABLESFinal Result from Last 3 Months Insurance Care Teams Team MemberRelationshipSpecialtyStart DateEnd Date Rosy Cottno MD [address] [facility] [address] [place] [address] PCP - GeneralInternal Medicine03/25/24 Delroy Carey MD [address] [place] [address] [address] [place] [address] Consulting PhysicianTransplant Surgery03/25/24
--- OUTSIDE RECORDS SUMMARY | 2025-08-11 07:09 | XMS_ITS | Patient Health Record ---
Author Organization [facility] [place] Address [address] [place] [address] Care Team Providers Care Pt Skilled Name Role Phone Rosy Cotton MD Primary Care Provider Unavailabl e Allergies No Known Allergies Reason For Referral No Information Medications Medication SIG (Take, Route, Frequency, Duration) Notes Start Date End Date Status hydroCHLOROthiazide ActiveFinasteride 5 MG1 tablet Orally Once a day; Duration: 90 days01/24/2024 ActivePfizer-BioNTech COVID-19 Vacc 30 MCG/0.3MLas directed Intramuscularbooster 07/20216053Klb-QszjcvOlprgebNlo-XlubylEfqxzoxjsfs 5 MG1 tablet Orally Once a day; Duration: 30 daysNot-TakingToujeo Max SoloStar 300 UNIT/ML50 UNITS SQ DAILY INCREASE BY 2 UNITS EVERY 3 DAYS SUBCUTANEOUS 30 DAYS Subcutaneous; Duration: 35 DaysActiveSimvastatinActiveRybelsus 14 MGTAKE ONE TABLET BY MOUTH ONCE DAILY 30 MINUTES BEFORE FIRST FOOD, BEVERAGE, OR OTHER ORAL MEDICATION OF THE DAY Oral; Duration: 30ActiveJardianceActiveIrbesartanActiveglipiZIDEActiveamLODIPine BesylateActiveTamsulosin HCl 0.4 MG1 capsule Orally Once a day; Duration: 30 daysNot-Taking Social History Tobacco Use: Social History Observation Description Date Details (start date - stop date) Former Smoker NA - NA Tobacco Use/Smoking Question Answer Notes Patient is a former smoker When did you start smoking?1979When did you stop smoking?2005Alcohol Screen (Audit-C) Question Answer Notes Did you have a drink containing alcohol in the p ast year? No Qlhive0DtyrubxxjbtewgXjferahm Problems Problem Type SNOMED Code ICD Code Onset Dates Problem Status W/U Status Risk Notes Problem Erectile dysfunction co-occurrent and due to arterial insufficiency (disorder) (840651787184297) Erectile dysfunction due to arterial insufficiency (N52.01) ActiveconfirmedProblemLower urinary tract symptoms due to benign prostatic hypertrophy (64843957356081)Benign prostatic hyperplasia with lower urinary tract symptoms, symptom details unspecified (N40.1)Activeconfirmed Plan Of Treatment Pending Test Test Name Order Date COVID 19 SWAB RT-PCR (OPS ONLY) 10/27/19 21 Insurance Providers Payer Name Payer Address Payer Phone Subscriber Number Group Number Insured Name Patient Relationship to Insured Coverage Start Date Coverage End Date [employer] MED[employer]ARE [address] [place], [place] [id number] Celia Gonzalez - patient is the [id number] 2023 Medical (General) History Medical History History ICD Code diabetes hyperlipidemiahypertensionErectile dysfunction due to arterial insufficiency N52.01Benign prostatic hyperplasia with lower urinary tract symptoms, symptom details twlydwzpqinV99.1Surgical History Surgery Date(Month/Year) Urolift 02/08/21 cholecystectomy
--- OUTSIDE RECORDS SUMMARY | 2025-08-11 07:09 | XMS_ITS | Encounter Summary ---
Author Organization [facility] Address [address] [place] [address] Care Team Providers Care Front Maker Lockstitch Name Role Phone Rosy Cotton MD Primary Care Provider [phone] Rosy Cotton MD Unavailable JennErick OD Unavailable Encounter Details DateTypeDepartmentCare Team (Latest Contact Info)Mbuxdwqorjs88/09/2025Telephone [facility] [place] [facility] [address] [place] [address] Rosy Cotton MD [address] [facility] [address] [place], [place] [phone] Social History Tobacco UseTypesPacks/DayYears UsedDateSmoking Tobacco: NeverSmokeless Tobacco: NeverAlcohol UseStandard Drinks/WeekCommentsNot Currently0 (1 standard drink = 0.6 oz pure alcohol)Caffeine Intake: MspriaQ8533 Health LiteracyAnswerDate RecordedHow often do you need to have someone help you when you read instructions, pamphlets, or other written material from your doctor or pharmacy? Never07/21/2024Social Connection and Isolation PanelAnswerDate RecordedIn a typical week, how many times do you talk on the phone with family, friends, or neighbors?More than three times a week07/21/2024How often do you get together with friends or relatives?Three times a week07/21/2024How often do you attend cheondoism or latter day services?More than 4 times per year07/21/2024o you belong to any clubs or organizations such as cheondoism groups, unions, fraternal or athletic groups, or school groups?Yes07/21/2024How often do you attend meetings of the clubs or organizations you belong to?More than 4 times per year07/21/2024 Are you , , , , never , or living with a partner?Wuqkcuw4307/21/2024UDIT-CAnswerDate RecordedQ1: How often do you have a [...] heating?Not hard at all07/21/2024HQ-2AnswerDate RecordedPatient Health Questionnaire-2 Kdekb00209/20/2024[facility] [place] [facility] - Occupational Stress QuestionnaireAnswerDate [...] were you homeless or living in a assisted (including now)?No07/21/2024Sex and Gender InformationValueDate RecordedSex Assigned at BirthNot on fileLegal IbnFtru0711/01/2022 6:53 PM EDTGender IdentityNot on fileSexual OrientationNot on filedocumented as of this encounter Miscellaneous Notes * Telephone Encounter - DAVE CLEMENS - 07/28/2025 4:19 PM EST sent * Telephone Encounter - Shayy Marin - 07/28/2025 3:53 PM EST [place] called and stated that the Freestyle Diamond 3 is working well for him and he would like Dr. Cotton to go ahead and send a prescription in to [facility] for [facility]. documented in this encounter Plan of Treatment DateTypeDepartmentCare Team (Latest Contact Info)Fuzjlkecdpp92/10/2026 9:15 AM ESTOffice Visit [facility] [address] [place] [address] Dimitri Duenas, DO [address] [place] [address] 10/15/2025 1:10 PM ESTOffice Visit [facility] [address] [facility] [address] [place] [address] Maxi Queen, DPM [address] [facility] 5 [place] [address] 10/19/2025 9:00 AM ESTOffice Visit [facility] [place] [facility] [address] [facility] 110 [place] [address] Rosy Cotton MD [address] [facility] 110 [place] [address] documented as of this encounter Visit Diagnoses Diagnosis Type 2 diabetes mellitus without complication, with long-term current use of insulin (HCC) Type 2 diabetes mellitus with other circulatory complications (HCC) documented in this encounter Care Teams Team MemberRelationshipSpecialtyStart DateEnd Date Rosy Cotton MD [address] [facility] 110 [place] [address] PCP - GeneralFamily Medicine03/19/23 Rosy Cotton MD [address] [facility] 110 [place] [address] PCP - [employer]08/20/23 Erick Barajas OD [address] [place] [address] Referring PhysicianOptometry03/11/24documented as of this encounter
--- OUTSIDE RECORDS SUMMARY | 2025-08-11 07:09 | XMS_ITS | Encounter Summary ---
Author Organization [facility] Address [address] [place] [address] Care Team Providers Care Agriculture Mechanic Name Role Phone Rosy Cotton MD Primary Care Provider [phone] Rosy Cotton MD Unavailable Erick Barajas OD Unavailable Encounter Details DateTypeDepartmentCare Team (Latest Contact Info)Dtpxvvjvmbo56/18/2025amboo flowsheet [facility] [address] [facility] 120 [place] [phone] Maxi Queen, DPJanet [address] [facility] [address] [place] [address] Social History Tobacco UseTypesPacks/DayYears UsedDateSmoking Tobacco: NeverSmokeless Tobacco: NeverAlcohol UseStandard Drinks/WeekCommentsNot Currently0 (1 standard drink = 0.6 oz pure alcohol)Caffeine Intake: VxdfppQ4461 Health LiteracyAnswerDate RecordedHow often do you need [...] times a week07/21/2024How often do you attend restorationism or presybeterian services?More than 4 times per year07/21/2024o you belong to any clubs or organizations such as restorationism groups, unions, fraternal or athletic groups, or school groups?Yes07/21/2024How often do you attend meetings of the clubs or organizations you belong to?More than 4 times per year07/21/2024 Are you , , , , never , or living with a partner?Unupbmn6307/21/2024UDIT-CAnswerDate RecordedQ1: How often do you have a [...] heating?Not hard at all07/21/2024HQ-2AnswerDate RecordedPatient Health Questionnaire-2 Ljocn81909/20/2024[facility] [place] of Occupational Health - Occupational Stress QuestionnaireAnswerDate [...] were you homeless or living in a intermediate (including now)?No07/21/2024Sex and Gender InformationValueDate RecordedSex Assigned at BirthNot on fileLegal TmcWfam4211/01/2022 6:53 PM EDTGender IdentityNot on fileSexual OrientationNot on filedocumented as of this encounter Plan of Treatment DateTypeDepartmentCare Team (Latest Contact Info)Xnfylynisgk48/10/2026 9:15 AM ESTOffice Visit [facility] [address] [place] [address] Dimitri Duenas, DO [address] [place] [address] 10/15/2025 1:10 PM ESTOffice Visit [facility] [place] [facility]
--- OUTSIDE RECORDS SUMMARY | 2025-08-11 07:09 | XMS_ITS | Clinical Summary ---
Author Organization [facility] Address [address] [place] [address] Care Team Providers Care Scrum Master Name Role Phone Jim Liu (Hist) Primary Care Provider + Allergies No known active allergies Medications MedicationSigDispense QuantityRefillsLast FilledStart DateEnd DateStatus GLUCOTROL XL 2.5 MG TAB Take one(1) tablet daily.Active GLUCOPHAGE XR 500 MG 24 HR TAB Take one(1) tablet two(2) times daily.Active CRESTOR 10 MG TAB Take one(1) tablet daily.Active ALTACE 2.5 MG CAP Take one (1) capsule daily 30 12110/08/2004Active IMDUR 30 MG 24 HR TAB Take one(1) tablet daily. 30 1 year08/07/2005Active TOPROL XL 50 MG 24 HR TAB Take one(1) tablet daily. 30 1 year08/07/2005Active ASPIRIN 81 MG TAB Take one (1) tablet daily .Active Active Problems ProblemNoted DateDiagnosed DateCoronary atherosclerosis of unspecified type of vessel, [place] or graft08/07/2005 Overview (08/07/2005): CTA Chest 06/23/05: RCA 100% mid and 50-70% prox-mid, LAD 95% mid and severe distal, LCX 60-70% mid, LVEF 58% Cardiolite 05/22/05: ischemia apex, scar inferior wall Type I (juvenile type) diabetes mellitus without mention of complication, not stated as ssgozspczmfm67/19/2005Essential hypertension, cvoxza8008/07/2005 Overview (08/07/2005): Date HTN medication started: 04/24 Other and unspecified uxfjrnsfhtsida23/19/2005Obesity, qovhohaihbr25/19/2005 Personal history of tobacco use, presenting hazards to cdfxjs0608/07/2005 Nonspecific abnormal unspecified cardiovascular function study08/07/2005 Family History Medical HistoryRelationCommentsCoronary Artery DiseaseFatherage 72: s/p CABG DiabetesFatherCoronary Artery DiseaseMotherage 66; s/p PCIDiabetesMotherDiabetes Sister 3RelationStatusCommentsBrother 1AliveBrother 2AliveBrother 3AliveFather Aliveage 72; s/p CABG, DMMotherAliveage 66: CAD, s/p PCI, DMSister 1AliveDM Sister 2AliveSister 3 Social History Tobacco UseTypesPacks/DayYears UsedDateSmoking Tobacco: Former Comments:Quit 2 yrs ago: 1 1 /2 ppd x 20 yrs Alcohol UseStandard Drinks/WeekCommentsNo0 (1 standard drink = 0.6 oz pure alcohol)Sex and Gender InformationValueDate RecordedSex Assigned at BirthNot on fileLegal IstUvzp45/02/2012 7:33 AM ESTGender IdentityNot on fileSexual OrientationNot on file Last Filed Vital Signs Vital SignReadingTime TakenCommentsBlood Cgmawyov806/7008/08/2005 9:55 PM EST Mbecy848308/08/2005 9:55 PM WPUBuumrkkokax99.2 ??C (97.2 ??F)08/08/2005 9:55 PM ESTRespiratory Gtmo926010/09/2004 9:55 PM ESTOxygen Xsijwinhtc34%08/08/2005 9:55 PM ESTInhaled Oxygen Concentration--Grrnwr947 kg (268 lb 15.4 oz)08/07/2005 7:30 AM DERFxtvii672 cm (5' 9.29 )08/07/2005 7:30 AM ESTBody Mass Index39.39 08/07/2005 7:30 AM EST Plan of Treatment Health MaintenanceDue DateLast DoneCommentsAbdominal Aortic Aneurysm Screening 8Anxiety Cmjseyjnb84/07/1976Depression Oplqyylbr52/07/1976Hepatitis C Dduuygajq32/07/1976DTaP,Tdap,Td Vaccine (1 - Tdap)1976CT Colonography 2002Cologuard (FIT-DNA)11/24/20023728Jvcjterdrva38/07/2003Colorectal Cancer Pmnbfunab86/07/2003Fecal Occult Blood2002Prostate Cancer Screening Vqywbetibd29/07/0326Qirdlacztecgl03/07/2003Pneumococcal Vaccine: 50+ (1 of 1 - PCV)11/25/2007Shingrix Vaccine (1 of 2)11/25/2007Diabetes Tnaatsjav01/19/2008 08/07/2005Lipid Yoperudqv04Advance Directive Discussion 5Covid-19 Vaccine (1 - 2024-26 season)2025Influenza Vaccine (#1) 2025RSV Vaccine (1 - 1-dose 75+ series)2032 Procedures Procedure NamePriorityDate/TimeAssociated DiagnosisCommentsCOMPREHENSIVE METABOLIC UFQLSMykhrgy50/19/2005 10:58 AM EST Coronary Atheroscler Unspec Vessel LIPID PANEL, LQKRUJXEhpcmmr41/19/2005 10:58 AM EST Coronary Atheroscler Unspec Vessel from Last 3 Months or Most Recently Relevant to Health Maintenance Results * (ABNORMAL) LIPID PANEL BASIC (08/07/2005 10:58 AM EST)ComponentValueRef Range Test MethodAnalysis TimePerformed AtPathologist IppcyrrupKllyyodvjzaz524(A)30 - 149 mg/dLPARKVIEW [facility]ALTH [facility] LABCholesterol, Pnbcm690490 - 199 mg/dLPARKVIEW [facility]ALTH [facility]PE[facility] LABHDL Rsgxcxpsoak49(A)>45 mg/dLPARKVIEW [facility] LABVLDL Lylykdecscu879 - 40 mg/dLPARKVIEW [facility]ALTH [facility]PELI[facility] LABLDL Cholesterol, Risafevgjz46(A)60 - 129 mg/dL [facility] LABFasting Masd41iozFCWRWKPHG CLINIC LABTC:HDL Ratio3.401.00 - 5.00[facility] LABLDL:HDL Ratio1.340.50 - 3.55[facility] Specimen (Source)Anatomical Location / LateralityCollection Method / Volume Collection TimeReceived TimeBlood specimen (specimen)BLOOD SPECIMEN / Unknown 08/07/2005 10:58 AM EST Narrative Authorizing ProviderResult TypeResult StatusMicmorgan Conner MDLABORATORYFinal ResultPerforming OrganizationAddressCity/State/ZIP CodePhone Number [facility] [address] [place] [address] * COMP METABOLIC PANEL (08/07/2005 10:58 AM EST)ComponentValueRef RangeTest MethodAnalysis TimePerformed AtPathologist SignatureProtein, Total7.56.0 - 8.4 g/dLPARKVIEW [facility]ALTH [facility]PELI[facility] LABAlbumin4.83.5 - 5.0 g/dLPARKVIEW [facility]ALTH [facility]LI[facility] LABCalcium9.6 8.5 - 10.5 mg/dLPARKVIEW [facility]ALTH [facility]PELI[facility] LABBilirubin, Total0.50.0 - 1.5 mg/dL [facility] LABAlkaline Hidkovanxvm2481 - 150 U/LCLEVELHOPI [facility]INIC LABAST 267 - 40 U/LCTUSCARAWAS HOSPITALAND [facility]AC[facility] HMJDznsvkm3723 - 100 mg/dLPARKVIEW [facility]PE[facility] LABBUN 1210 - 25 mg/dLPARKVIEW [facility] LABCreatinine0.80.7 - 1.4 mg/dLPARKVIEW [facility] LJSKulwiy858442 - 146 mmol/LCKETTERING HEALTH MAIN [facility] CLINIC LABPotassium4.23.5 - 5.0 mmol/LCLEVELAND [facility] VFZVdpfcjlj95443 - 110 mmol/LC[facility] RORYC062 23 - 32 mmol/[facility] LABAnion Gie927 - 15 mmol/LCLEVEL[facility] LAB KVL855 - 50 U/LCLEVELLIFECARE MEDICAL CENTER LABSpecimen (Source)Anatomical Location / LateralityCollection Method / VolumeCollection TimeReceived TimeBlood specimen (specimen)BLOOD SPECIMEN / Qjmietf2308/07/2005 10:58 AM EST Narrative Authorizing ProviderResult TypeResult StatusMichaelucille Conner MDLABORATORYFinal ResultPerforming OrganizationAddressCity/State/ZIP CodePhone Number [facility] [address] [place] [address] from Last 3 Months or Most Recently Relevant to Health Maintenance Insurance Care Teams Team MemberRelationshipSpecialtyStart DateEnd Date Jim Liu (Hist) [address] [place] [address] PCP - Kmggtln19/19/05
--- OUTSIDE RECORDS SUMMARY | 2025-08-11 07:09 | XMS_ITS | Encounter Summary ---
Author Organization [facility] Address [address] [place] [address] Care Team Providers Care Shoe Cobbler Name Role Phone Rosy Cotton MD Primary Care Provider [phone] Rosy Cotton MD Unavailable Erick Barajas OD Unavailable Encounter Details DateTypeDepartmentCare Team (Latest Contact Info)Eerxvwtxmqj74/18/2025Travel Social History Tobacco UseTypesPacks/DayYears UsedDateSmoking Tobacco: NeverSmokeless Tobacco: NeverAlcohol UseStandard Drinks/WeekCommentsNot Currently0 (1 standard drink = 0.6 oz pure alcohol)Caffeine Intake: AyewbfT0246 Health LiteracyAnswerDate RecordedHow often do you need [...] week07/21/2024How often do you attend anabaptism or church services?More than 4 times per year07/21/2024o you belong to any clubs or organizations such as anabaptism groups, unions, fraternal or athletic groups, or school groups?Yes07/21/2024How often do you attend meetings of the clubs or organizations you belong to?More than 4 times per year07/21/2024 Are you , , , , never , or living with a partner?Eeewowt6607/21/2024UDIT-CAnswerDate RecordedQ1: How often do you have a [...] heating?Not hard at all07/21/2024HQ-2AnswerDate RecordedPatient Health Questionnaire-2 Eailp56609/20/2024[facility] [place] [facility] - Occupational Stress QuestionnaireAnswerDate [...] were you homeless or living in a custodial (including now)?No07/21/2024Sex and Gender InformationValueDate RecordedSex Assigned at BirthNot on fileLegal JhlCreq2011/01/2022 6:53 PM EDTGender IdentityNot on fileSexual OrientationNot on filedocumented as of this encounter Plan of Treatment DateTypeDepartmentCare Team (Latest Contact Info)Snakqoqfzkv75/10/2026 9:15 AM ESTOffice Visit [facility] [address] [place] [phone] Dimitri Duenas DO [address] [place], [place] [phone] 10/15/2025 1:10 PM ESTOffice Visit [facility] [address] [facility] [address] [place] [phone] Maxi Queen, DPJanet [address] [facility] [address] [place] [address] 10/19/2025 9:00 AM ESTOffice Visit [facility] [place] [facility] [address] [facility] [address] [place] [address] Rosy Cotton MD [address] [facility] [address] [place] [address] documented as of this encounter Visit Diagnoses Not on filedocumented in this encounter Care Teams Team MemberRelationshipSpecialtyStart DateEnd Date Rosy Cotton MD [address] [facility] [address] [place] [address] PCP - GeneralFamily Medicine03/19/23 Rosy Cotton MD [address] [facility] [address] [place] [address] PCP - [employer]08/20/23 Erick Barajas OD [address] [place] [address] Referring PhysicianOptometry03/11/24documented as of this encounter
[2025-08-11 07:40] LABS: Hematocrit 50.5 % (42.0-54.0); Hemoglobin 16.4 g/dL (14.0-18.0); Immature Granulocytes Abs Auto 0.03 10^3/uL (0.00-0.03); Immature Granulocytes Pct Auto 0.4 % (0.0-0.5); Lymphocytes Absolute Auto 2.1 10^3/uL (1.2-3.8); Mean Corpuscular HGB Conc 32.5 g/dL (29.9-35.2); Mean Corpuscular Hemoglobin 27.2 pg (25.9-34.0); Mean Corpuscular Volume 83.6 fL (80.0-94.0); Platelet Count 226 10^3/uL (150-450); Red Blood Count 6.04 10^6/uL (4.70-6.10); White Blood Count 6.9 10^3/uL (4.0-11.0)
[2025-08-11 08:12] LABS: Alanine Aminotransferase 56 U/L (16-63); Albumin Globulin Ratio 1.0; Albumin Level 3.7 g/dL (3.4-5.0); Alkaline Phosphatase 113 U/L (46-116); Aspartate Amino Transferase 29 U/L (15-37); Globulin 3.7 g/dL; Total Protein 7.4 g/dL (6.4-8.2)
== END 2025-08-11 07:05 | disposition home or self-care (01) ==
LOC: LAB 07:05
PROVIDERS: PCP Family Medicine; Visit Provider Nurse Practitioner Family
DX: E29.1 Testicular hypofunction (principal); N52.9 Male erectile dysfunction, unspecified
CPT/HCPCS: 36415; 80076; 82670; 84403; 85025